=== PATIENT | male | born 1960 | race Caucasian/White ===

== ENCOUNTER 2017-11-12 06:02 | Emergency (ER) | payer SELFPAY ==
[2017-11-12] MEDS ORDERED: methylPREDNISolone Sodium Succinate 125 MG/2 ML SDV IVPUSH ONE (06:08)
[2017-11-12] MEDS ORDERED: Albuterol/Ipratropium 3.0-0.5 MG/3 ML Neb Soln NEB ONE (06:08)
[2017-11-12 06:12] VITALS: BP 134/85
--- NOTE | 2017-11-12 06:14 | EDM.PDOC ---
ED HPI GENERAL MEDICAL PROBLEM - General Chief Complaint: Respiratory Problem Stated Complaint: DIFFICULTY BREATHING [id number] Time Seen by Provider: 11/12/17 06:09 Source of Information: Reports: Patient History Limitations: Reports: No Limitations - History of Present Illness INITIAL COMMENTS - FREE TEXT/NARRATIVE: gives 2 months h/o cough, use neb at home prn only, not seen PMD and not getting better and tonight feels worse and neb not helping. chest hurts on coughing especially in back - Related Data Allergies Allergy/AdvReac Type Severity Reaction Status Date / Time No Known Allergies Allergy Verified 12/20/15 20:01 Home Meds: Home Meds Simvastatin 40 mg PO BEDTIME 08/25/14 [History] glyBURIDE [Glyburide] 10 mg PO BID 08/25/14 [History] metFORMIN [Glucophage] 1,000 mg PO BID 08/25/14 [History] Albuterol Sulfate [Albuterol Sulfate HFA] 2 puff INH ASDIRECTED PRN 12/23/14 [ History] Aspirin [[place] Aspirin] 81 mg PO DAILY 12/23/14 [History] Ibuprofen [Motrin] 600 mg PO Q6H PRN 09/19/15 [History] Ipratropium/Albuterol Sulfate [Iprat-Albut 0.5-3(2.5) MG/3 ML] 1 vial INH QID PRN 09/19/15 [History] Acetaminophen [Tylenol Extra Strength] 500 mg PO Q6HR PRN 10/17/15 [History] Past Medical History HEENT History: Reports: Cataract Cardiovascular History: Reports: High Cholesterol, SOB on Exertion, Other (See Below) Respiratory History: Reports: COPD, SOB Gastrointestinal History: Reports: Other (See Below) Musculoskeletal History: Reports: Arthritis, Osteoarthritis Neurological History: Reports: Neuropathy, Peripheral Endocrine/Metabolic History: Reports: Diabetes, Type II - Infectious Disease History Infectious Disease History: Reports: Chicken Pox, Measles - Past Surgical History HEENT Surgical History: Reports: Cataract Surgery, Oral Surgery Musculoskeletal Surgical History: Reports: Arthroscopic Knee Social & Family History - Family History Other Respiratory Family Hisory: father from lung cancer Endocrine/Metabolic: Reports: Diabetes, type II Other Endocrine/Metabolic Family History: mother has DM and possibley hypercholesterolemia - Tobacco Use Smoking Status *Q: Current Every Day Smoker Years of Tobacco use: 40 Packs/Tins Daily: 1 Used Tobacco, but Quit: No Month Tobacco Last Used: 12/2014 Second Hand Smoke Exposure: Yes - Alcohol Use Days Per Week of Alcohol Use: 2 Number of Drinks Per Day: 6 Total Drinks Per Week: 12 - Recreational Drug Use Recreational Drug Use: No - Living Situation & Occupation Living situation: Reports: ED ROS GENERAL - Review of Systems Review Of Systems: ROS reveals no pertinent complaints other than HPI. ED EXAM, GENERAL - Physical Exam Exam: See Below Exam Limited By: No Limitations General Appearance: Alert, WD/WN, Mild Distress, Moderate Distress, Other ( cough spasms) Ears: Hearing Grossly Normal Throat/Mouth: Normal Voice, No Airway Compromise Head: Atraumatic Neck: Non-Tender, Full Range of Motion Respiratory/Chest: Decreased Breath Sounds, Rales, Rhonchi, Wheezing, Accessory Muscle Use. No: Retractions Cardiovascular: Regular Rate, Rhythm GI/Abdominal: Soft, Non-Tender Extremities: No Pedal Edema Neurological: Alert, Oriented, Normal Cognition, No Motor/Sensory Deficits Psychiatric: No: Depressed Mood Skin Exam: Warm, Dry Lymphatic: No Adenopathy Course - Vital Signs Last Recorded V/S: Last Vital Signs Temp 37.9 C 11/12/17 06:04 Pulse 118 H 11/12/17 06:04 Resp 19 11/12/17 06:04 BP 134/85 11/12/17 06:04 Pulse Ox 92 L 11/12/17 06:04 - Orders/Labs/Meds Orders: Active Orders 24 hr Category Date Time Status RT Aerosol Therapy [RC] ASDIRECTED Care 11/12/17 06:08 Active CULTURE BLOOD [BC] Stat Lab 11/12/17 06:11 Ordered LACTIC ACID [CHEM] Stat Lab 11/12/17 06:11 Ordered Labs: Laboratory Tests 11/12/17 11/12/17 Range/Units 06:10 06:10 WBC 10.4 H (5.0-10.0) 10^3/uL RBC 5.18 (4.6-6.2) 10^6/uL Hgb 15.3 (14.0-18.0) g/dL Hct 45.7 (40.0-54.0) % MCV 88.2 (80-100) fL MCH 29.5 (27.0-34.0) pg MCHC 33.5 (33.0-35.0) g/dL Plt Count 298 D (150-450) 10^3/uL Neut % (Auto) 71.6 (42.2-75.2) % Lymph % (Auto) 12.8 L (20.5-50.1) % [place] % (Auto) 12.2 H (2-8) % Eos % (Auto) 3.0 (1.0-3.0) % Baso % (Auto) 0.4 (0.0-1.0) % Sodium 134 L (135-145) mmol/L Potassium 4.2 (3.6-5.0) mmol/L Chloride 100 L (101-111) mmol/L Carbon Dioxide 23.0 (21.0-31.0) mmol/L Anion Gap 15.2 BUN 16 (7-18) mg/dL Creatinine 0.9 (0.6-1.3) mg/dL Est Cr Clr Drug Dosing 83.65 mL/min Estimated GFR (MDRD) > 60 BUN/Creatinine Ratio 17.77 Glucose 133 H (74-105) mg/dL Calcium 8.9 (8.4-10.2) mg/dl Total Bilirubin 0.8 (0.2-1.0) mg/dL AST 22 (10-42) IU/L ALT 23 (10-60) IU/L Alkaline Phosphatase 76 (42-121) IU/L Troponin I < 0.02 (0.00-0.02) ng/ml Total Protein 7.5 (6.7-8.2) g/dl Albumin 4.3 (3.2-5.5) g/dl Globulin 3.2 Albumin/Globulin Ratio 1.34 Meds: Medications Discontinued Medications Generic Name Dose Route Start Last Admin Trade Name Freq PRN Reason Stop Dose Admin Albuterol/Ipratropium 3 ml 11/12/17 06:08 11/12/17 06:14 Duoneb 3.0-0.5 Mg/3 Ml NEB 11/12/17 06:09 3 ml ONETIME ONE Administration Ceftriaxone Sodium 1 gm 11/12/17 06:41 11/12/17 06:47 Rocephin IVPUSH 11/12/17 06:42 1 gm ONETIME ONE Administration Methylprednisolone Sodium Succinate 125 mg 11/12/17 06:08 11/12/17 06:15 Solu-Medrol IVPUSH 11/12/17 06:09 125 mg ONETIME ONE Administration Promethazine HCl/Codeine 5 ml 11/12/17 06:51 11/12/17 06:54 Phenergan With Codeine PO 11/12/17 06:52 5 ml ONETIME ONE Administration - Re-Assessments/Exams Free Text/Narrative Re-Assessment/Exam: 11/12/17 06:45 results discussed with pt 11/12/17 06:58 re-exam; s/p duoneb + IV Rx = much better Departure - Departure Time of Disposition: 06:59 Disposition: Home, Self-Care 01 Condition: Good Clinical Impression: Acute exacerbation of chronic obstructive pulmonary disease (COPD) Pneumonia Qualifiers: Pneumonia type: due to unspecified organism Laterality: right Lung location: middle lobe of lung Qualified Code(s): J18.1 - Lobar pneumonia, unspecified organism - Discharge Information Instructions: Chronic Obstructive Pulmonary Disease Exacerbation, [id number] Forms: ED Department Discharge Additional Instructions: 1) rest 2) take neb 3 times daily for cough 3) follow up with clinic or recheck as needed rx given; z-elie medrol dospak tessalon pearle 100mg bid orn x 12 albuterol 2.5mg solutoin tid orn - My Orders Last 24 Hours: My Active Orders 11/12/17 06:08 RT Aerosol Therapy [RC] ASDIRECTED 11/12/17 06:11 CULTURE BLOOD [BC] Stat LACTIC ACID [CHEM] Stat - Assessment/Plan Last 24 Hours: My Active Orders 11/12/17 06:08 RT Aerosol Therapy [RC] ASDIRECTED 11/12/17 06:11 CULTURE BLOOD [BC] Stat LACTIC ACID [CHEM] Stat
[2017-11-12 06:40] LABS: ANION GAP 15.2; CHLORIDE,CL 100 mmol/L (101-111); SODIUM,NA 134 mmol/L (135-145)
[2017-11-12] MEDS ORDERED: cefTRIAXone 1 GM Vial IVPUSH ONE (06:41)
[2017-11-12] MEDS ORDERED: Codeine/Promethazine 10-6.25 MG/5 ML Syrup 5 ML UD Cup PO ONE (06:51)
== END 2017-11-12 07:04 | disposition home or self-care (01) ==
LOC: DL.ED 06:02
DX: J18.9 Pneumonia, unspecified organism (principal); J44.1 Chronic obstructive pulmonary disease with (acute) exacerbation; E78.00 Pure hypercholesterolemia, unspecified; E11.9 Type 2 diabetes mellitus without complications; F17.210 Nicotine dependence, cigarettes, uncomplicated; Z79.84 Long term (current) use of oral hypoglycemic drugs; Z79.82 Long term (current) use of aspirin; Z79.899 Other long term (current) drug therapy
CPT/HCPCS: 36415; 71046; 80053; 83605; 84484; 85025; 87040; 94640; 96374; 96375; 99284; 99285; A9270; J0696; J2930

== ENCOUNTER 2017-12-18 09:50 | Emergency (ER) | payer SELFPAY ==
[2017-12-18 10:06] VITALS: BP 145/81
[2017-12-18] MEDS: Albuterol/Ipratropium 3.0-0.5 MG/3 ML Neb Soln NEB ONE (10:54)
--- NOTE | 2017-12-18 11:21 | EDM.PDOC ---
ED HPI GENERAL MEDICAL PROBLEM - General Chief Complaint: Respiratory Problem Stated Complaint: SOB Time Seen by Provider: 12/18/17 10:25 Source of Information: Reports: Patient History Limitations: Reports: No Limitations - History of Present Illness INITIAL COMMENTS - FREE TEXT/NARRATIVE: This 57 yo male patient reports to the ED with increased shortness of breath. The patient reports his initial symptoms started about 5 weeks ago after he quit smoking and had pneumonia. The patient reports that he attempted to do a nebulizer treatment while at home, but did not feel like it helped. The patient reports that he has noticed difficulties breathing yesterday, but it has gotten worse today. Onset Date: 12/17/17 Duration: Constant, Getting Worse Location: Reports: Chest Quality: Reports: Pressure Severity: Moderate Improves with: Reports: Rest Worsens with: Reports: Movement Associated Symptoms: Reports: cough w sputum, Shortness of Breath - Related Data Allergies Allergy/AdvReac Type Severity Reaction Status Date / Time No Known Allergies Allergy Verified 12/20/15 20:01 Home Meds: Home Meds Simvastatin 20 mg PO BEDTIME 08/25/14 [History] glyBURIDE [Glyburide] 5 mg PO BID 08/25/14 [History] metFORMIN [Glucophage] 1,000 mg PO BID 08/25/14 [History] Albuterol Sulfate [Albuterol Sulfate HFA] 2 puff INH ASDIRECTED PRN 12/23/14 [ History] Aspirin [[place] Aspirin] 81 mg PO DAILY 12/23/14 [History] Ibuprofen [Motrin] 600 mg PO Q6H PRN 09/19/15 [History] Ipratropium/Albuterol Sulfate [Iprat-Albut 0.5-3(2.5) MG/3 ML] 1 vial INH QID PRN 09/19/15 [History] Acetaminophen [Tylenol Extra Strength] 500 mg PO Q6HR PRN 10/17/15 [History] Past Medical History HEENT History: Reports: Cataract, Impaired Vision Cardiovascular History: Reports: High Cholesterol, SOB on Exertion Respiratory History: Reports: COPD, SOB Gastrointestinal History: Reports: Other (See Below) Musculoskeletal History: Reports: Arthritis, Osteoarthritis Neurological History: Reports: Neuropathy, Peripheral Endocrine/Metabolic History: Reports: Diabetes, Type II - Infectious Disease History Infectious Disease History: Reports: Chicken Pox, Measles - Past Surgical History HEENT Surgical History: Reports: Cataract Surgery, Oral Surgery Musculoskeletal Surgical History: Reports: Arthroscopic Knee Social & Family History - Family History Other Respiratory Family Hisory: father from lung cancer Endocrine/Metabolic: Reports: Diabetes, type II Other Endocrine/Metabolic Family History: mother has DM and possibley hypercholesterolemia - Tobacco Use Smoking Status *Q: Current Every Day Smoker Years of Tobacco use: 45 Packs/Tins Daily: 1.5 Used Tobacco, but Quit: Yes Month Tobacco Last Used: 11/2017 Second Hand Smoke Exposure: Yes - Caffeine Use Caffeine Use: Reports: Coffee - Alcohol Use Days Per Week of Alcohol Use: 2 Number of Drinks Per Day: 6 Total Drinks Per Week: 12 - Recreational Drug Use Recreational Drug Use: No - Living Situation & Occupation Living situation: Reports: ED ROS GENERAL - Review of Systems Review Of Systems: ROS reveals no pertinent complaints other than HPI. ED EXAM, GENERAL - Physical Exam Exam: See Below Exam Limited By: No Limitations General Appearance: Alert, WD/WN, Moderate Distress Eye Exam: Bilateral Eye: EOMI, Normal Inspection, PERRL Ears: Normal External Exam, Normal Canal, Hearing Grossly Normal, Normal TMs Nose: Normal Inspection, Normal Mucosa, No Blood Throat/Mouth: Normal Lips, Normal Teeth, Normal Gums, Normal Voice, No Airway Compromise, Other (erythema of posterior pharynx) Head: Atraumatic, Normocephalic Neck: Normal Inspection, Supple, Non-Tender, Full Range of Motion Respiratory/Chest: Decreased Breath Sounds, Rhonchi (diffuse lower lobes), Wheezing (throughout) Cardiovascular: Normal Peripheral Pulses, Regular Rate, Rhythm, No Edema, No Gallop, No JVD, No Murmur, No Rub GI/Abdominal: Normal Bowel Sounds, Soft, Non-Tender, No Organomegaly, No Distention, No Abnormal Bruit, No Mass (Male) Exam: Deferred Rectal (Males) Exam: Deferred Back Exam: Normal Inspection, Full Range of Motion, NT Extremities: Normal Inspection, Normal Range of Motion, Non-Tender, Normal Capillary Refill, No Pedal Edema Psychiatric: Normal Affect, Normal Mood Skin Exam: Warm, Dry, Intact, Normal Color, No Rash Lymphatic: No Adenopathy Course - Vital Signs Last Recorded V/S: Last Vital Signs Temp 37.4 C 12/18/17 10:05 Pulse 110 H 12/18/17 10:05 Resp 16 12/18/17 10:05 BP 145/81 H 12/18/17 10:05 Pulse Ox 94 L 12/18/17 10:05 - Orders/Labs/Meds Orders: Active Orders 24 hr Category Date Time Status RT Aerosol Therapy [RC] ASDIRECTED Care 12/18/17 10:45 Active Chest 2V [CR] Urgent Exams 12/18/17 10:46 Taken CULTURE BLOOD [BC] Stat Lab 12/18/17 10:56 Received CULTURE BLOOD [BC] Stat Lab 12/18/17 11:02 Received LACTIC ACID [CHEM] Stat Lab 12/18/17 10:56 Received Blood Culture x2 Reflex Set [OM.PC] Stat Oth 12/18/17 10:46 Ordered Labs: Laboratory Tests 12/18/17 12/18/17 Range/Units 10:56 10:56 WBC 11.7 H (5.0-10.0) 10^3/uL RBC 4.69 (4.6-6.2) 10^6/uL Hgb 13.9 L (14.0-18.0) g/dL Hct 41.6 (40.0-54.0) % MCV 88.7 (80-100) fL MCH 29.6 (27.0-34.0) pg MCHC 33.4 (33.0-35.0) g/dL Plt Count 277 (150-450) 10^3/uL Neut % (Auto) 56.0 (42.2-75.2) % Lymph % (Auto) 22.6 (20.5-50.1) % [place] % (Auto) 8.1 H (2-8) % Eos % (Auto) 12.8 H (1.0-3.0) % Baso % (Auto) 0.5 (0.0-1.0) % Add Manual Diff Yes Neutrophils % (Manual) 63 (42-75) % Lymphocytes % (Manual) 25 (20-50) % Monocytes % (Manual) 4 (2-8) % Eosinophils % (Manual) 8 H (1-3) % Sodium 136 (135-145) mmol/L Potassium 4.0 (3.6-5.0) mmol/L Chloride 102 (101-111) mmol/L Carbon Dioxide 26.0 (21.0-31.0) mmol/L Anion Gap 12.0 BUN 14 (7-18) mg/dL Creatinine 0.8 (0.6-1.3) mg/dL Est Cr Clr Drug Dosing 90.83 mL/min Estimated GFR (MDRD) > 60 BUN/Creatinine Ratio 17.50 Glucose 214 H (74-105) mg/dL Calcium 9.0 (8.4-10.2) mg/dl Total Bilirubin 0.5 (0.2-1.0) mg/dL AST 26 (10-42) IU/L ALT 27 (10-60) IU/L Alkaline Phosphatase 60 (42-121) IU/L Total Protein 6.7 (6.7-8.2) g/dl Albumin 3.9 (3.2-5.5) g/dl Globulin 2.8 Albumin/Globulin Ratio 1.39 Meds: Medications Discontinued Medications Generic Name Dose Route Start Last Admin Trade Name Freq PRN Reason Stop Dose Admin Albuterol/Ipratropium 3 ml 12/18/17 10:45 12/18/17 10:54 Duoneb 3.0-0.5 Mg/3 Ml NEB 12/18/17 10:46 3 ml ONETIME ONE Administration Methylprednisolone Sodium Succinate 125 mg 12/18/17 10:47 12/18/17 11:25 Solu-Medrol IVPUSH 12/18/17 10:48 125 mg ONETIME ONE Administration Departure - Departure Time of Disposition: 11:51 Disposition: Home, Self-Care 01 Condition: Fair Clinical Impression: Acute exacerbation of chronic obstructive pulmonary disease (COPD) - Discharge Information Instructions: Chronic Obstructive Pulmonary Disease Exacerbation, [id number] Forms: ED Department Discharge Care Plan Goals: The patient and his were advised of the examination, lab and x-ray results during the visit. The patient was given a Duoneb treatment and IV Solumedrol while in the ED. The patient was discharged with a script for Augmentin (875/125 ) to take 1 by mouth 2 times per day for 10 days and a Medrol Dose Pack to take as directed. If the patient has any additional symptoms or concerns, the patient should follow-up with his primary care facility or return to the emergency department. - My Orders Last 24 Hours: My Active Orders 12/18/17 10:45 RT Aerosol Therapy [RC] ASDIRECTED 12/18/17 10:46 Chest 2V [CR] Urgent Blood Culture x2 Reflex Set [OM.PC] Stat 12/18/17 10:56 CULTURE BLOOD [BC] Stat LACTIC ACID [CHEM] Stat 12/18/17 11:02 CULTURE BLOOD [BC] Stat - Assessment/Plan Last 24 Hours: My Active Orders 12/18/17 10:45 RT Aerosol Therapy [RC] ASDIRECTED 12/18/17 10:46 Chest 2V [CR] Urgent Blood Culture x2 Reflex Set [OM.PC] Stat 12/18/17 10:56 CULTURE BLOOD [BC] Stat LACTIC ACID [CHEM] Stat 12/18/17 11:02 CULTURE BLOOD [BC] Stat
[2017-12-18] MEDS: methylPREDNISolone Sodium Succinate 125 MG/2 ML SDV IVPUSH ONE (11:25)
[2017-12-18 11:28] LABS: CHLORIDE,CL 102 mmol/L (101-111); SODIUM,NA 136 mmol/L (135-145)
== END 2017-12-18 12:00 | disposition home or self-care (01) ==
LOC: DL.ED 09:50
DX: J44.1 Chronic obstructive pulmonary disease with (acute) exacerbation (principal); E11.9 Type 2 diabetes mellitus without complications; E78.00 Pure hypercholesterolemia, unspecified; F17.210 Nicotine dependence, cigarettes, uncomplicated; Z79.899 Other long term (current) drug therapy; Z79.82 Long term (current) use of aspirin
CPT/HCPCS: 36415; 71046; 80053; 83605; 85025; 87040; 94640; 96374; 99285; J2930

== ENCOUNTER 2018-01-16 22:03 | Inpatient (IN) | payer OTHER ==
[2018-01-16] MEDS ORDERED: Albuterol/Ipratropium 3.0-0.5 MG/3 ML Neb Soln NEB ONE (22:10)
[2018-01-16] MEDS ORDERED: methylPREDNISolone Sodium Succinate 125 MG/2 ML SDV IVPUSH ONE (22:49)
--- NOTE | 2018-01-16 22:52 | EDM.PDOC ---
ED HPI GENERAL MEDICAL PROBLEM - General Chief Complaint: Respiratory Problem Stated Complaint: [id number] CANT BREATH WELL Time Seen by Provider: 01/16/18 22:50 Source of Information: Reports: Patient, Family History Limitations: Reports: No Limitations - History of Present Illness INITIAL COMMENTS - FREE TEXT/NARRATIVE: 3 days h/o wheezing nebs not helping much worse tonight. - Related Data Allergies Allergy/AdvReac Type Severity Reaction Status Date / Time No Known Allergies Allergy Verified 01/16/18 22:08 Home Meds: Home Meds Simvastatin 20 mg PO BEDTIME 08/25/14 [History] glyBURIDE [Glyburide] 5 mg PO BID 08/25/14 [History] metFORMIN [Glucophage] 1,000 mg PO BID 08/25/14 [History] Albuterol Sulfate [Albuterol Sulfate HFA] 2 puff INH ASDIRECTED PRN 12/23/14 [ History] Aspirin [[place] Aspirin] 81 mg PO DAILY 12/23/14 [History] Ibuprofen [Motrin] 600 mg PO Q6H PRN 09/19/15 [History] Ipratropium/Albuterol Sulfate [Iprat-Albut 0.5-3(2.5) MG/3 ML] 1 vial INH QID PRN 09/19/15 [History] Acetaminophen [Tylenol Extra Strength] 500 mg PO Q6HR PRN 10/17/15 [History] Past Medical History HEENT History: Reports: Cataract, Impaired Vision Cardiovascular History: Reports: High Cholesterol, SOB on Exertion Respiratory History: Reports: COPD, SOB Gastrointestinal History: Reports: Other (See Below) Musculoskeletal History: Reports: Arthritis, Osteoarthritis Neurological History: Reports: Neuropathy, Peripheral Psychiatric History: Reports: None Endocrine/Metabolic History: Reports: Diabetes, Type II Hematologic History: Reports: None Immunologic History: Reports: None Oncologic (Cancer) History: Reports: None - Infectious Disease History Infectious Disease History: Reports: Chicken Pox, Measles - Past Surgical History HEENT Surgical History: Reports: Cataract Surgery, Oral Surgery Musculoskeletal Surgical History: Reports: Arthroscopic Knee Social & Family History - Family History Other Respiratory Family Hisory: father from lung cancer Endocrine/Metabolic: Reports: Diabetes, type II Other Endocrine/Metabolic Family History: mother has DM and possibley hypercholesterolemia - Tobacco Use Smoking Status *Q: Former Smoker Years of Tobacco use: 45 Packs/Tins Daily: 1.5 Used Tobacco, but Quit: Yes Month/Year Tobacco Last Used: october 2017 Second Hand Smoke Exposure: Yes - Caffeine Use Caffeine Use: Reports: Coffee - Alcohol Use Days Per Week of Alcohol Use: 2 Number of Drinks Per Day: 6 Total Drinks Per Week: 12 - Recreational Drug Use Recreational Drug Use: No - Living Situation & Occupation Living situation: Reports: ED ROS GENERAL - Review of Systems Review Of Systems: ROS reveals no pertinent complaints other than HPI. ED EXAM, GENERAL - Physical Exam Exam: See Below Exam Limited By: No Limitations General Appearance: Alert, WD/WN, Mild Distress, Moderate Distress, Other ( wheezing) Ears: Hearing Grossly Normal Throat/Mouth: Normal Voice, No Airway Compromise Head: Atraumatic Neck: Non-Tender, Full Range of Motion Respiratory/Chest: No Accessory Muscle Use, Decreased Breath Sounds, Rhonchi, Wheezing Cardiovascular: Regular Rate, Rhythm GI/Abdominal: Soft, Non-Tender Neurological: Alert, Oriented, Normal Cognition, Normal Gait, No Motor/Sensory Deficits Psychiatric: Flat Affect Skin Exam: Warm, Dry, Normal Color Lymphatic: No Adenopathy Course - Vital Signs Last Recorded V/S: Last Vital Signs Temp 36.9 C 01/16/18 22:09 Pulse 108 H 01/16/18 22:09 Resp 22 H 01/16/18 22:09 BP 137/84 01/16/18 22:09 Pulse Ox 90 L 01/16/18 22:09 - Orders/Labs/Meds Orders: Active Orders 24 hr Category Date Time Status RT Aerosol Therapy [RC] ASDIRECTED Care 01/16/18 22:10 Active Sodium Chloride 0.9% [Normal Saline] 1,000 ml Med 01/16/18 23:00 Active IV ASDIRECTED Medication Orders Sodium Chloride (Normal Saline) 1,000 mls @ 500 mls/hr IV ASDIRECTED HAN Last Admin: 01/16/18 23:03 Dose: 500 mls/hr Labs: Laboratory Tests 01/16/18 01/16/18 01/16/18 Range/Units 22:55 22:55 22:55 WBC 11.0 H (5.0-10.0) 10^3/uL RBC 4.58 L (4.6-6.2) 10^6/uL Hgb 13.8 L (14.0-18.0) g/dL Hct 40.5 (40.0-54.0) % MCV 88.4 (80-100) fL MCH 30.1 (27.0-34.0) pg MCHC 34.1 (33.0-35.0) g/dL Plt Count 321 (150-450) 10^3/uL Neut % (Auto) 44.8 (42.2-75.2) % Lymph % (Auto) 29.4 (20.5-50.1) % [place] % (Auto) 9.3 H (2-8) % Eos % (Auto) 16.0 H (1.0-3.0) % Baso % (Auto) 0.5 (0.0-1.0) % Sodium 136 (135-145) mmol/L Potassium 3.7 (3.6-5.0) mmol/L Chloride 100 L (101-111) mmol/L Carbon Dioxide 28.0 (21.0-31.0) mmol/L Anion Gap 11.7 BUN 12 (7-18) mg/dL Creatinine 0.9 (0.6-1.3) mg/dL Est Cr Clr Drug Dosing 82.19 mL/min Estimated GFR (MDRD) > 60 BUN/Creatinine Ratio 13.33 Glucose 208 H (74-105) mg/dL Lactic Acid 1.6 (0.5-2.2) mmol/L Calcium 9.0 (8.4-10.2) mg/dl Total Bilirubin 0.8 (0.2-1.0) mg/dL AST 25 (10-42) IU/L ALT 20 (10-60) IU/L Alkaline Phosphatase 71 (42-121) IU/L Total Protein 6.9 (6.7-8.2) g/dl Albumin 4.0 (3.2-5.5) g/dl Globulin 2.9 Albumin/Globulin Ratio 1.38 Meds: Medications Generic Name Dose Route Start Last Admin Trade Name Freq PRN Reason Stop Dose Admin Sodium Chloride 1,000 mls @ 500 mls/hr 01/16/18 23:00 01/16/18 23:03 Normal Saline IV 500 mls/hr ASDIRECTED HAN Administration Discontinued Medications Generic Name Dose Route Start Last Admin Trade Name Freq PRN Reason Stop Dose Admin Albuterol/Ipratropium 3 ml 01/16/18 22:10 01/16/18 22:14 Duoneb 3.0-0.5 Mg/3 Ml NEB 01/16/18 22:11 3 ml ONETIME ONE Administration Methylprednisolone Sodium Succinate 125 mg 01/16/18 22:49 01/16/18 23:01 Solu-Medrol IVPUSH 01/16/18 22:50 125 mg ONETIME ONE Administration - Re-Assessments/Exams Free Text/Narrative Re-Assessment/Exam: 01/16/18 23:[address] Alvarez who kindly admitted pt. Departure - Departure Time of Disposition: 23:32 Disposition: Admitted As Inpatient 65 Condition: Fair Clinical Impression: COPD, Moderate chronic obstructive pulmonary disease - Discharge Information Forms: ED Department Discharge - My Orders Last 24 Hours: My Active Orders 01/16/18 22:10 RT Aerosol Therapy [RC] ASDIRECTED 01/16/18 23:00 Sodium Chloride 0.9% [Normal Saline] 1,000 ml IV ASDIRECTED - Assessment/Plan Last 24 Hours: My Active Orders 01/16/18 22:10 RT Aerosol Therapy [RC] ASDIRECTED 01/16/18 23:00 Sodium Chloride 0.9% [Normal Saline] 1,000 ml IV ASDIRECTED
[2018-01-16] MEDS ORDERED: Sodium Chloride 0.9% 1,000 ML IV SCH (23:00)
[2018-01-16 23:23] LABS: CHLORIDE,CL 100 mmol/L (101-111); SODIUM,NA 136 mmol/L (135-145)
[2018-01-17] MEDS ORDERED: Levofloxacin/Dextrose 5%-Water 750 MG in Premix Bag 1 BAG IV ONE (01:00)
[2018-01-17] MEDS ORDERED: Acetaminophen 325 MG Tab PO PRN (01:05)
[2018-01-17] MEDS ORDERED: Ondansetron 4 MG Tab.DIS PO PRN (01:05)
[2018-01-17] MEDS ORDERED: Magnesium Hydroxide 400 MG/5 ML Susp 30 ML Cup PO PRN (01:05)
[2018-01-17] MEDS ORDERED: Albuterol 6.7 GM Inhaler INH PRN (01:09)
[2018-01-17] MEDS ORDERED: 50% Dextrose in Water 50 ML Syringe IVPUSH PRN (01:10)
[2018-01-17] MEDS ORDERED: methylPREDNISolone Sodium Succinate 40 MG/1 ML SDV IVPUSH SCH ×2 (01:15→07:00)
[2018-01-17] MEDS: Albuterol/Ipratropium 3.0-0.5 MG/3 ML Neb Soln NEB SCH ×6 (03:32→23:30)
--- NOTE | 2018-01-17 04:15 | HP ---
DATE OF SERVICE: 01/17/2018 CHIEF COMPLAINT: Increasing shortness of breath. HISTORY OF PRESENTING ILLNESS: Mr. Luis F Ordoñez is a 57-year-old male with medical history significant for type 2 diabetes mellitus, hyperlipidemia, chronic obstructive pulmonary disease, chronic tobacco use, presented to the ER with complaints of increasing shortness of breath and is noted to be in COPD exacerbation requiring admission to the hospital. The patient says that he has been sick for the last 4-5 days, which has been progressively getting worse. He complains of increasing shortness of breath. He grades the shortness of breath as 6/10 in intensity, which gets aggravated on ambulation, relieved with rest. Not associated with any chest pain. Denies any fevers or chills for the last few days, but complains of having cough with sputum which was brownish to grayish in color. Denied any chest pain. No complaints of abdominal pain, but complains of having diarrhea in the last 2 days, 3 loose stools each day. No blood seen in the diarrhea. The patient earlier this month had similar episodes of bronchitis requiring Augmentin and Medrol Dosepak at that time. The patient denied any history of chest pains on exertion, but has mild dyspnea on exertion. No history of orthopnea or paroxysmal nocturnal dyspnea. The patient denied any history of hematemesis, hematochezia, or melenic stools. Normal bowel and bladder habits otherwise. REVIEW OF SYSTEMS: A complete review of system including skin, ear, nose, and throat, cardiovascular system, gastrointestinal system, genitourinary system, hematology, oncology, neurology, allergy, immunology, constitutional were all evaluated and were negative except for the above-said notes. PAST MEDICAL HISTORY: Significant for: 1. Type 2 diabetes mellitus. 2. Hyperlipidemia. 3. Chronic obstructive pulmonary disease. 4. Chronic tobacco use. 5. History of alcohol use. PAST SURGICAL HISTORY: Significant for knee arthroscopies in the past. FAMILY HISTORY: Significant for lung cancer in his father. Diabetes in his mother. ALLERGIES: No known drug allergies. SOCIAL HISTORY: The patient has longstanding history of tobacco use. He quit smoking 9 weeks back. History of occasional alcohol intake. HOME MEDICATIONS: Include: 1. Simvastatin 20 mg daily. 2. Cymbalta 30 mg daily. 3. Metformin 1000 mg daily. 4. Glyburide 5 mg daily. 5. ProAir inhalation. 6. Pulmicort nebulizer 2 times daily. 7. DuoNeb as needed. 8. Advil 600 mg oral q.6 hours as needed for pain. PHYSICAL EXAMINATION: Vital Signs: Temperature of 97.8, pulse of 97, blood pressure 153/80, respiratory rate of 20, saturating at 93% on 1 L of oxygen. General Appearance: The patient is well oriented to time, place, and person. Follows commands spontaneously, in mild respiratory distress. Cardiovascular System: S1 and S2 heard with normal intensity. No gallops. Respiratory System: Bilateral wheeze noted. Mild respiratory distress. Abdomen: Soft. Bowel sounds positive. Nontender. No rigidity. No guarding. No rebound tenderness. Extremities: No edema in bilateral lower extremities. Neurology: No gross focal neurological deficit. LABORATORY DATA: WBC 11, hemoglobin 13.8, hematocrit 40.5, platelet count 321. Sodium 136, potassium 3.7, chloride 100, bicarb 28, BUN 12, creatinine 0.9, glucose 208. Chest x-ray shows no acute infiltrates. Chronic changes noted on the chest x- ray. ASSESSMENT: 1. Acute chronic obstructive pulmonary disease exacerbation. 2. Acute hypoxic respiratory failure. 3. Possible acute bronchitis. 4. Type 2 diabetes mellitus. 5. Hyperlipidemia. 6. Chronic history of tobacco use. PLAN: 1. Acute chronic obstructive pulmonary disease exacerbation. The patient presents with increasing shortness of breath. Noted to have bilateral wheeze. We will start him on IV methylprednisolone, IV antibiotic with Levaquin, and have him on nebulizer treatment with DuoNeb and Pulmicort nebulizer and closely follow. 2. Acute hypoxic respiratory failure. The patient is requiring around 1 to 2 L of nasal cannula oxygen. We will continue the same. We will try to maintain saturations around 95%. 3. Hypertension. The patient is noted to have elevated blood pressure, but the patient denied any history of hypertension, not on any antihypertensive medications. We will closely follow. 4. Type 2 diabetes mellitus. The patient is noted to be on metformin and glyburide. We will hold the metformin while in the hospital. Continue the glyburide and have him on supplemental scale insulin as needed for additional coverage of his blood glucose. As he is going to receive steroids, his diabetes could get uncontrolled in the hospital. 5. Tobacco use. The patient claims that he has quit smoking 9 weeks back for which he is congratulated and advised him to quit smoking. 6. Deep vein thrombosis prophylaxis. We will have him on Lovenox for deep vein thrombosis prophylaxis. 7. Code status. The patient wants to be full code. 8. Discussed with the patient regarding the plan of care. Discussed with Dr. Gmoez, ER physician regarding the plan of care. Reviewed the labs and medications. Reviewed the old chart. [facility] /[id number]
[2018-01-17 07:20] LABS: CHLORIDE,CL 101 mmol/L (101-111); SODIUM,NA 134 mmol/L (135-145)
[2018-01-17] MEDS: glyBURIDE 5 MG Tab PO SCH ×2 (08:03→21:43)
[2018-01-17] MEDS: Aspirin 81 MG Tab.EC PO SCH (08:03)
[2018-01-17] MEDS: Budesonide 0.5 MG/2 ML Neb Susp NEB SCH ×2 (08:03→18:35)
[2018-01-17] MEDS: DULoxetine 30 MG Cap PO SCH (08:03)
[2018-01-17] MEDS: methylPREDNISolone Sodium Succinate 40 MG/1 ML SDV IVPUSH SCH ×3 (08:12→23:31)
[2018-01-17] MEDS: Insulin Aspart 100 Units/ML 3 ML Pen SUBCUT SCH ×5 (08:18→21:45)
[2018-01-17] MEDS ORDERED: Enoxaparin 30 MG/0.3 ML Syringe SUBCUT SCH (09:00)
[2018-01-17] MEDS: Pantoprazole 40 MG Tab.CR PO SCH (12:48)
[2018-01-17] MEDS: Enoxaparin 40 MG/0.4 ML Syringe SUBCUT SCH (12:49)
[2018-01-17] MEDS: Simvastatin 40 MG Tab PO SCH (21:43)
[2018-01-18] MEDS: Albuterol/Ipratropium 3.0-0.5 MG/3 ML Neb Soln NEB SCH ×6 (03:09→23:38)
[2018-01-18] MEDS: Pantoprazole 40 MG Tab.CR PO SCH (06:18)
[2018-01-18] MEDS: Budesonide 0.5 MG/2 ML Neb Susp NEB SCH ×2 (07:19→18:42)
[2018-01-18] MEDS: glyBURIDE 5 MG Tab PO SCH ×2 (08:14→21:04)
[2018-01-18] MEDS: Aspirin 81 MG Tab.EC PO SCH (08:14)
[2018-01-18] MEDS: DULoxetine 30 MG Cap PO SCH (08:15)
[2018-01-18] MEDS: methylPREDNISolone Sodium Succinate 40 MG/1 ML SDV IVPUSH SCH ×3 (08:15→23:38)
[2018-01-18] MEDS: Sodium Chloride 0.9% 10 ML Syringe FLUSH PRN ×3 (08:16→16:09)
[2018-01-18] MEDS: Insulin Aspart 100 Units/ML 3 ML Pen SUBCUT SCH ×4 (08:20→21:11)
[2018-01-18] MEDS: Enoxaparin 40 MG/0.4 ML Syringe SUBCUT SCH (08:22)
[2018-01-18] MEDS ORDERED: Levofloxacin/Dextrose 5%-Water 750 MG in Premix Bag 1 BAG IV SCH (11:00)
[2018-01-18] MEDS: Levofloxacin/Dextrose 5%-Water 750 MG in Premix Bag 1 BAG IV SCH (11:28)
--- NOTE | 2018-01-18 12:26 | PN ---
DATE: 01/18/2018 SUBJECTIVE: Mr. Romero Kerns is a 57-year-old male with a medical history significant for hypertension, type 2 diabetes mellitus, hyperlipidemia, chronic obstructive pulmonary disease, and chronic tobacco use, admitted with acute COPD exacerbation, acute hypoxic respiratory failure, and possible bronchitis. For the last 24 hours, the patient is continued on nebulizer treatment and IV steroids. The patient denies any complaints of chest pain. No shortness of breath. No abdominal pain. No nausea. No vomiting. No diarrhea. REVIEW OF SYSTEMS: Cardiovascular, respiratory, gastrointestinal, constitutional were all evaluated. PHYSICAL EXAMINATION: Vital Signs: Temperature of 99.2, pulse of 103, blood pressure 110/62, respiratory rate of 20, and saturating at 98%. General Appearance: The patient is well oriented to time, place, and person. Follows commands spontaneously. Cardiovascular System: S1 and S2 heard with normal intensity. No gallops. Respiratory System: Bilateral wheeze noted. Abdomen: Soft. Bowel sounds positive. Nontender. No rigidity. Extremities: No edema in the bilateral lower extremities. MEDICATIONS: Reviewed. Continue with: 1. Tylenol 650 every 4 hours as needed for pain. 2. Albuterol inhalation as needed. 3. DuoNeb 3 mL nebulizer q.4 hours. 4. Aspirin 81 mg daily. 5. Pulmicort 0.5 mg twice a day. 6. Cymbalta 30 mg daily. 7. Lovenox 40 mg daily. 8. Glyburide 5 mg twice a day. 9. NovoLog supplemental scale. 10.Levaquin 750 mg daily. 11.Solu-Medrol 40 mg IV q.8 hourly. 12.Protonix 40 mg daily. 13.Zocor 20 mg at bedtime. LABORATORY DATA: Labs reviewed. The patient noted to have elevated blood sugar up to 269. ASSESSMENT: 1. Acute chronic obstructive pulmonary disease exacerbation. 2. Acute hypoxic respiratory failure, resolved. 3. Acute bronchitis. 4. Hypertension. 5. Hyperlipidemia. 6. Type 2 diabetes mellitus. PLAN: 1. Acute COPD exacerbation. The patient is currently on nebulizer treatment with DuoNeb and Pulmicort nebulizers. We will gradually taper down the steroids to 40 mg IV q.8 hourly. The patient will be continued on supplemental oxygen if needed. 2. Acute hypoxic respiratory failure, resolved. The patient is able to saturate well on room air. 3. Type 2 diabetes mellitus, uncontrolled. This is mainly from his steroid dosing. Continue with glyburide and have him on supplemental scale insulin as needed. The patient apparently on the steroid, so hopefully, this would help with the diabetes control. 4. DVT prophylaxis. Continue with Lovenox for DVT prophylaxis. 5. Tobacco use. The patient was educated about tobacco cessation on this admission. [facility] /[id number]
[2018-01-18] MEDS: Simvastatin 40 MG Tab PO SCH (21:04)
[2018-01-19] MEDS: Albuterol/Ipratropium 3.0-0.5 MG/3 ML Neb Soln NEB SCH ×3 (03:08→10:52)
[2018-01-19] MEDS: Pantoprazole 40 MG Tab.CR PO SCH (05:50)
[2018-01-19] MEDS: Budesonide 0.5 MG/2 ML Neb Susp NEB SCH (07:11)
[2018-01-19 07:40] VITALS: BP 121/71
[2018-01-19] MEDS: DULoxetine 30 MG Cap PO SCH (08:15)
[2018-01-19] MEDS: methylPREDNISolone Sodium Succinate 40 MG/1 ML SDV IVPUSH SCH (08:16)
[2018-01-19] MEDS: Aspirin 81 MG Tab.EC PO SCH (08:16)
[2018-01-19] MEDS: Enoxaparin 40 MG/0.4 ML Syringe SUBCUT SCH (08:16)
[2018-01-19] MEDS: glyBURIDE 5 MG Tab PO SCH (08:16)
[2018-01-19] MEDS: Insulin Aspart 100 Units/ML 3 ML Pen SUBCUT SCH ×2 (08:17→11:23)
[2018-01-19] MEDS: Sodium Chloride 0.9% 10 ML Syringe FLUSH PRN (08:19)
[2018-01-19] MEDS: Levofloxacin/Dextrose 5%-Water 750 MG in Premix Bag 1 BAG IV SCH (11:23)
[2018-01-19] MEDS ORDERED: Levofloxacin 500 MG Tab ONE (11:33)
[2018-01-19] MEDS ORDERED: Budesonide 0.5 MG/2 ML Neb Susp ONE (11:35)
[2018-01-19] MEDS ORDERED: Albuterol/Ipratropium 3.0-0.5 MG/3 ML Neb Soln ONE (11:36)
[2018-01-19] MEDS ORDERED: Albuterol/Ipratropium 3.0-0.5 MG/3 ML Neb Soln INH ONE (12:09)
[2018-01-19] MEDS ORDERED: Levofloxacin 500 MG Tab PO ONE (12:09)
[2018-01-19] MEDS ORDERED: Budesonide 0.5 MG/2 ML Neb Susp INH ONE (12:09)
--- NOTE | 2018-01-20 07:26 | DISCH ---
DATE OF SERVICE: 01/19/2018 ADMITTING DIAGNOSES: 1. Acute chronic obstructive pulmonary disease exacerbation. 2. Acute hypoxic respiratory failure. DISCHARGE DIAGNOSES: 1. Acute chronic obstructive pulmonary disease exacerbation, resolved. 2. Acute hypoxic respiratory failure, resolved. 3. Type 2 diabetes mellitus, uncontrolled from steroid use. HISTORY OF PRESENT ILLNESS: Mr. Luis F Ordoñez is a 57-year-old male with medical history significant for type 2 diabetes mellitus, hyperlipidemia, chronic obstructive pulmonary airway disease, chronic tobacco use admitted with COPD exacerbation with complaints of increasing shortness of breath. The patient was empirically started on IV antibiotic but no evidence of pneumonia identified at this time. The patient was started on IV methylprednisolone and nebulizer treatment. He responded well to the treatment. We were able to titrate down IV methylprednisolone and switch him to oral prednisone at the time of discharge. He will continue with oral Levaquin for next 3 days. The patient was explained about importance of nebulizer treatment. He will use DuoNeb 3 times a day and Pulmicort twice a day. He is advised to follow with Pulmonary Clinic for official pulmonary function test. He is educated about tobacco cessation, strongly encouraged him to quit smoking which he understands and verbalized the same. The patient claims that he had quit smoking for the last 9 weeks for which he was congratulated. He is advised to follow with his primary care physician next 1 week of time. The patient was explained about changes in his medications. PHYSICAL EXAMINATION: Vital Signs: On the day of discharge temperature of 98.2, pulse of 100, blood pressure 121/71, respiratory rate of 20, saturating at 94% on room air. General Appearance: The patient is well oriented to time, place, and person. Follows commands spontaneously. Cardiovascular System: S1, S2 heard with normal intensity. No gallops. Respiratory System: Clear to auscultation bilaterally. No wheeze. No crepitations. Abdomen: Soft. Bowel sounds positive. Nontender. No rigidity. Extremities: No edema in bilateral lower extremities. Neurology: No gross focal neurological deficits. DISCHARGE MEDICATIONS: Include: 1. Tylenol Extra Strength 500 mg every 6 hours as needed for pain and fever. 2. Albuterol 2 puffs inhalation every 6 hours as needed for shortness of breath. 3. DuoNeb 3 mL nebulizer 3 times daily. 4. Aspirin 81 mg daily. 5. Pulmicort 0.5 mg nebulizer twice daily. 6. Cymbalta 30 mg daily. 7. Ibuprofen 600 mg every 6 hours as needed for pain. 8. Levaquin 500 mg daily. 9. Prednisone tapered dose with 40 to 20 to 10 to 5 mg 3 days each. 10.Glyburide 5 mg twice a day. 11.Metformin 1000 mg twice a day. CONDITION ON ADMISSION: Poor. CONDITION ON DISCHARGE: Stable and good. ACTIVITY: As tolerated. DIET: Consistent carbohydrate diet. Follow with primary care physician next 1 week of time. Spent over 35 minutes of time in evaluating and treating this patient and making discharge plans. [facility] /[id number]
== END 2018-01-19 12:10 | disposition home or self-care (01) | DRG 190 ==
LOC: DL.ED 22:03 → UNDOADMIN 23:39 → DL.MS 23:39
PROVIDERS: ADMIT Internal Medicine; ATTEND Internal Medicine
DX: J44.1 Chronic obstructive pulmonary disease with (acute) exacerbation (principal); J96.01 Acute respiratory failure with hypoxia; J44.0 Chronic obstructive pulmonary disease with (acute) lower respiratory infection; J20.9 Acute bronchitis, unspecified; I10 Essential (primary) hypertension; E11.42 Type 2 diabetes mellitus with diabetic polyneuropathy; E11.65 Type 2 diabetes mellitus with hyperglycemia; T38.0X5A Adverse effect of glucocorticoids and synthetic analogues, initial encounter; H54.7 Unspecified visual loss; M19.90 Unspecified osteoarthritis, unspecified site; E78.5 Hyperlipidemia, unspecified; Z79.84 Long term (current) use of oral hypoglycemic drugs; Z87.891 Personal history of nicotine dependence; Z79.82 Long term (current) use of aspirin; Z79.899 Other long term (current) drug therapy
CPT/HCPCS: 36415; 71046; 80048; 80053; 82962; 83605; 85025; 85027; 87040; 87070; 87205; 94640; 96374; 99285; A9270-GY; J1650; J1815-GY; J1956; J2920; J2930; J7030; J7050

== ENCOUNTER 2018-03-20 15:07 | Emergency (ER) | payer SELFPAY ==
[2018-03-20] MEDS: Albuterol/Ipratropium 3.0-0.5 MG/3 ML Neb Soln NEB ONE (15:21)
[2018-03-20 15:22] VITALS: BP 130/79
[2018-03-20 15:55] LABS: CHLORIDE,CL 101 mmol/L (101-111); SODIUM,NA 139 mmol/L (135-145)
--- NOTE | 2018-03-20 16:00 | CR ---
Clinical history: 57-year-old male COPD and shortness of breath. Interpretation: Coarse accentuation central lung markings with some fine interstitial nodularity and mild peribronchial "cuffing" but no appreciable air trapping and no focal lobar pneumonia. No parench ymal lung mass lesion or hilar/mediastinal lymphadenopathy. Normal cardiac silhouette without cephalization of vascular flow, signs of alveolar edema or dependen t effusion. No atelectasis/collapse. No pneumothorax. No bullous emphysematous lesions. CONCLUSION: Chronic pubic/interstitial pattern unchanged since 16 January 2018. No new signs of heart f ailure or lobar pneumonia.
[2018-03-20] MEDS: predniSONE 20 MG Tab PO ONE (16:10)
--- NOTE | 2018-03-20 16:12 | EDM.PDOC ---
ED HPI GENERAL MEDICAL PROBLEM - General Chief Complaint: Respiratory Problem Stated Complaint: [id number] CANT BREATHE Time Seen by Provider: 03/20/18 15:50 Source of Information: Reports: Patient History Limitations: Reports: No Limitations - History of Present Illness INITIAL COMMENTS - FREE TEXT/NARRATIVE: This 57 yo male patient reports to the ED with a 3-4 day history of increased shortness of breath and cough. The patient reports that he quit smoking 18 months ago. The patient has been doing his home nebulizer treatments. The patient reports he has been dealing with symptoms for years and has these episodes sporadically. Onset: Gradual Duration: Day(s):, Constant, Getting Worse Location: Reports: Chest Severity: Moderate Improves with: Reports: Rest Worsens with: Reports: Movement Context: Reports: Other Associated Symptoms: Reports: No Other Symptoms - Related Data Allergies Allergy/AdvReac Type Severity Reaction Status Date / Time No Known Allergies Allergy Verified 03/20/18 15:22 Home Meds: Home Meds Simvastatin 20 mg PO BEDTIME 08/25/14 [History] glyBURIDE [Glyburide] 5 mg PO BID 08/25/14 [History] metFORMIN [Glucophage] 1,000 mg PO BID 08/25/14 [History] Albuterol Sulfate [Albuterol Sulfate HFA] 2 puff INH Q6H PRN 12/23/14 [History] Aspirin [Cascade Aspirin] 81 mg PO DAILY 12/23/14 [History] Ibuprofen [Motrin] 600 mg PO Q6H PRN 09/19/15 [History] Ipratropium/Albuterol Sulfate [Iprat-Albut 0.5-3(2.5) MG/3 ML] 1 vial INH QID PRN 09/19/15 [History] Acetaminophen [Tylenol Extra Strength] 500 mg PO Q6HR PRN 10/17/15 [History] DULoxetine [Cymbalta] 30 mg PO DAILY 01/17/18 [History] Vitamin E 1,000 unit PO BEDTIME 01/17/18 [History] Albuterol/Ipratropium [DuoNeb 3.0-0.5 MG/3 ML] 3 ml NEB TID #60 neb 01/19/18 [Rx ] Budesonide [Pulmicort] 0.5 mg NEB BID #60 neb 01/19/18 [Rx] Past Medical History HEENT History: Reports: Cataract, Impaired Vision Cardiovascular History: Reports: High Cholesterol, SOB on Exertion Respiratory History: Reports: COPD, SOB Gastrointestinal History: Reports: Other (See Below) Musculoskeletal History: Reports: Arthritis, Osteoarthritis Neurological History: Reports: Neuropathy, Peripheral Psychiatric History: Reports: None Endocrine/Metabolic History: Reports: Diabetes, Type II Hematologic History: Reports: None Immunologic History: Reports: None Oncologic (Cancer) History: Reports: None - Infectious Disease History Infectious Disease History: Reports: Chicken Pox, Measles - Past Surgical History HEENT Surgical History: Reports: Cataract Surgery, Oral Surgery Musculoskeletal Surgical History: Reports: Arthroscopic Knee Social & Family History - Family History Family Medical History: Noncontributory Other Respiratory Family Hisory: father from lung cancer Endocrine/Metabolic: Reports: Diabetes, type II Other Endocrine/Metabolic Family History: mother has DM and possibley hypercholesterolemia - Tobacco Use Smoking Status *Q: Former Smoker Years of Tobacco use: 45 Packs/Tins Daily: 1 Used Tobacco, but Quit: Yes Month/Year Tobacco Last Used: 000 - Caffeine Use Caffeine Use: Reports: Coffee - Alcohol Use Days Per Week of Alcohol Use: 1 Number of Drinks Per Day: 2 Total Drinks Per Week: 2 - Recreational Drug Use Recreational Drug Use: No - Living Situation & Occupation Living situation: Reports: ED ROS GENERAL - Review of Systems Review Of Systems: ROS reveals no pertinent complaints other than HPI. ED EXAM, GENERAL - Physical Exam Exam: See Below Exam Limited By: No Limitations General Appearance: Alert, WD/WN, Moderate Distress Eye Exam: Bilateral Eye: EOMI, Normal Inspection, PERRL Ears: Normal External Exam, Normal Canal, Hearing Grossly Normal, Normal TMs Nose: Normal Inspection, Normal Mucosa, No Blood Throat/Mouth: Normal Inspection, Normal Lips, Normal Teeth, Normal Gums, Normal Oropharynx, Normal Voice, No Airway Compromise Head: Atraumatic, Normocephalic Neck: Normal Inspection, Supple, Non-Tender, Full Range of Motion Respiratory/Chest: Wheezing Cardiovascular: Normal Peripheral Pulses, Regular Rate, Rhythm, No Edema, No Gallop, No JVD, No Murmur, No Rub GI/Abdominal: Normal Bowel Sounds, Soft, Non-Tender, No Organomegaly, No Distention, No Abnormal Bruit, No Mass (Male) Exam: Deferred Rectal (Males) Exam: Deferred Extremities: Normal Inspection, Normal Range of Motion, Non-Tender, Normal Capillary Refill, No Pedal Edema Neurological: Alert, Oriented, CN II-XII Intact, Normal Cognition, Normal Gait, Normal Reflexes, No Motor/Sensory Deficits Psychiatric: Normal Affect, Normal Mood Skin Exam: Warm, Dry, Intact, Normal Color, No Rash Lymphatic: No Adenopathy Course - Vital Signs Last Recorded V/S: Last Vital Signs Temp 36.8 C 03/20/18 15:19 Pulse 113 H 03/20/18 15:19 Resp 24 H 03/20/18 15:19 BP 130/79 03/20/18 15:19 Pulse Ox 96 03/20/18 15:19 - Orders/Labs/Meds Orders: Active Orders 24 hr Category Date Time Status RT Aerosol Therapy [RC] ASDIRECTED Care 03/20/18 15:17 Active Labs: Laboratory Tests 03/20/18 03/20/18 Range/Units 15:27 15:27 WBC 9.9 (5.0-10.0) 10^3/uL RBC 4.64 (4.6-6.2) 10^6/uL Hgb 14.0 (14.0-18.0) g/dL Hct 41.8 (40.0-54.0) % MCV 90.1 (80-100) fL MCH 30.2 (27.0-34.0) pg MCHC 33.5 (33.0-35.0) g/dL Plt Count 382 (150-450) 10^3/uL Neut % (Auto) 47.4 (42.2-75.2) % Lymph % (Auto) 28.1 (20.5-50.1) % [place] % (Auto) 8.6 H (2-8) % Eos % (Auto) 15.0 H (1.0-3.0) % Baso % (Auto) 0.9 (0.0-1.0) % Sodium 139 (135-145) mmol/L Potassium 4.2 (3.6-5.0) mmol/L Chloride 101 (101-111) mmol/L Carbon Dioxide 28.0 (21.0-31.0) mmol/L Anion Gap 14.2 BUN 10 (7-18) mg/dL Creatinine 0.9 (0.6-1.3) mg/dL Est Cr Clr Drug Dosing 83.65 mL/min Estimated GFR (MDRD) > 60 BUN/Creatinine Ratio 11.11 Glucose 170 H (74-105) mg/dL Calcium 9.4 (8.4-10.2) mg/dl Total Bilirubin 0.6 (0.2-1.0) mg/dL AST 31 (10-42) IU/L ALT 26 (10-60) IU/L Alkaline Phosphatase 74 (42-121) IU/L B-Natriuretic Peptide 7 (0-100) pg/ml Total Protein 7.3 (6.7-8.2) g/dl Albumin 4.3 (3.2-5.5) g/dl Globulin 3.0 Albumin/Globulin Ratio 1.43 Meds: Medications Discontinued Medications Generic Name Dose Route Start Last Admin Trade Name Freq PRN Reason Stop Dose Admin Albuterol/Ipratropium 3 ml 03/20/18 15:17 03/20/18 15:21 Duoneb 3.0-0.5 Mg/3 Ml NEB 03/20/18 15:18 3 ml ONETIME ONE Administration Prednisone 40 mg 03/20/18 16:06 Prednisone PO 03/20/18 16:07 ONETIME ONE Departure - Departure Time of Disposition: 16:19 Disposition: Home, Self-Care 01 Condition: Fair Clinical Impression: Bronchitis, Acute exacerbation of chronic obstructive pulmonary disease (COPD) - Discharge Information Instructions: Chronic Obstructive Pulmonary Disease Exacerbation, [id number] , Acute Bronchitis, Adult, [id number] Referrals: Juliocesar Stout MD [Primary Care Provider] - Care Plan Goals: The patient was advised of the examination, lab and x-ray results during the visit. The patient was given an oral dose of Prednisone while in the ED. The patient was given prescriptions for Levaquin (500 mg) to take 1 by mouth daily for 7 days and Prednisone (20 mg) #10 to take 2 by mouth daily for 5 days. If the patient has any additional symptoms or concerns, the patient should follow- up with her primary care facility or return to the emergency department. - My Orders Last 24 Hours: My Active Orders 03/20/18 15:17 RT Aerosol Therapy [RC] ASDIRECTED - Assessment/Plan Last 24 Hours: My Active Orders 03/20/18 15:17 RT Aerosol Therapy [RC] ASDIRECTED
== END 2018-03-20 16:34 | disposition home or self-care (01) ==
LOC: DL.ED 15:07
DX: J44.1 Chronic obstructive pulmonary disease with (acute) exacerbation (principal); E11.40 Type 2 diabetes mellitus with diabetic neuropathy, unspecified; Z87.891 Personal history of nicotine dependence; Z79.84 Long term (current) use of oral hypoglycemic drugs; Z79.82 Long term (current) use of aspirin
CPT/HCPCS: 36415; 71046; 80053; 83880; 85025; 94640; 99285; A9270

== ENCOUNTER 2018-10-25 20:38 | Inpatient (IN) | payer OTHER ==
[2018-10-25] MEDS ORDERED: Albuterol/Ipratropium 3.0-0.5 MG/3 ML Neb Soln NEB ONE (20:51)
[2018-10-25] MEDS ORDERED: methylPREDNISolone Sodium Succinate 125 MG/2 ML SDV IVPUSH ONE (20:54)
--- NOTE | 2018-10-25 20:59 | EDM.PDOC ---
ED HPI GENERAL MEDICAL PROBLEM - General Chief Complaint: Respiratory Problem Stated Complaint: SOB Time Seen by Provider: 10/25/18 20:50 Source of Information: Reports: Patient History Limitations: Reports: No Limitations - History of Present Illness INITIAL COMMENTS - FREE TEXT/NARRATIVE: This 58 yo male patient reports to the ED with a 2 day history of increased shortness of breath and cough. The patient reports he has a history of COPD and emphysema as well as diabetes and hyperlipidemia. The patient reports he did a nebulizer treatment at about 1800 today, with little to no symptom improvement. The patient reports he was last admitted to the hospital with similar symptoms on 05/21/18. 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 Treatments - Related Data Allergies Allergy/AdvReac Type Severity Reaction Status Date / Time No Known Allergies Allergy Verified 05/21/18 08:02 Home Meds: Home Meds Simvastatin 40 mg PO BEDTIME 08/25/14 [History] glyBURIDE [Glyburide] 5 mg PO BID 08/25/14 [History] metFORMIN [Glucophage] 1,000 mg PO BID 08/25/14 [History] Albuterol Sulfate [Albuterol Sulfate HFA] 2 puff INH Q6H PRN 12/23/14 [History] Aspirin [New Alluwe Aspirin EC] 81 mg PO DAILY 12/23/14 [History] Ipratropium/Albuterol Sulfate [Iprat-Albut 0.5-3(2.5) MG/3 ML] 1 vial INH QID PRN 09/19/15 [History] Vitamin E 1,000 unit PO BEDTIME 01/17/18 [History] Albuterol/Ipratropium [DuoNeb 3.0-0.5 MG/3 ML] 3 ml NEB TID #60 neb 01/19/18 [Rx ] Budesonide [Pulmicort] 0.5 mg NEB BID #60 neb 01/19/18 [Rx] Amoxicillin/Potassium Clav [Augmentin 875-125 Tablet] 875 mg PO BID 05/21/18 [ History] DULoxetine [Cymbalta] 30 mg PO DAILY 05/21/18 [History] predniSONE [Prednisone] 10 mg PO DAILY #20 tablet 05/24/18 [Rx] Past Medical History HEENT History: Reports: Cataract, Impaired Vision Cardiovascular History: Reports: High Cholesterol, SOB on Exertion Respiratory History: Reports: COPD, SOB Gastrointestinal History: Reports: Other (See Below) Musculoskeletal History: Reports: Arthritis, Back Pain, Chronic, Osteoarthritis Neurological History: Reports: Neuropathy, Peripheral Psychiatric History: Reports: None Endocrine/Metabolic History: Reports: Diabetes, Type II Hematologic History: Reports: None Immunologic History: Reports: None Oncologic (Cancer) History: Reports: None - Infectious Disease History Infectious Disease History: Reports: Chicken Pox, Measles - Past Surgical History HEENT Surgical History: Reports: Cataract Surgery, Oral Surgery Musculoskeletal Surgical History: Reports: Arthroscopic Knee Social & Family History - Family History Family Medical History: Noncontributory Other Respiratory Family Hisory: father from lung cancer Endocrine/Metabolic: Reports: Diabetes, type II Other Endocrine/Metabolic Family History: mother has DM and possibley hypercholesterolemia - Tobacco Use Smoking Status *Q: Current Every Day Smoker Years of Tobacco use: 45 Packs/Tins Daily: 0.5 Second Hand Smoke Exposure: Yes - Caffeine Use Caffeine Use: Reports: Coffee - Recreational Drug Use Recreational Drug Use: No - Living Situation & Occupation Living situation: Reports: ED ROS GENERAL - Review of Systems Review Of Systems: ROS reveals no pertinent complaints other than HPI. ED EXAM, GENERAL - Physical Exam Exam: See Below Exam Limited By: No Limitations General Appearance: Alert, WD/WN, Moderate Distress Eye Exam: Bilateral Eye: EOMI, Normal Inspection, PERRL Ears: Normal External Exam, Normal Canal, Hearing Grossly Normal, Normal TMs Nose: Normal Inspection, Normal Mucosa, No Blood Throat/Mouth: Normal Lips, Normal Teeth, Normal Gums, Normal Voice, No Airway Compromise, Other (eerythema of posterior pharynx) Head: Atraumatic, Normocephalic Neck: Normal Inspection, Supple, Non-Tender, Full Range of Motion Respiratory/Chest: Decreased Breath Sounds, Rhonchi (throughout), Wheezing ( throughout) Cardiovascular: Normal Peripheral Pulses, Regular Rate, Rhythm, No Edema, No Gallop, No JVD, No Murmur, No Rub GI/Abdominal: Normal Bowel Sounds, Soft, Non-Tender, No Organomegaly, No Distention, No Abnormal Bruit, No Mass (Male) Exam: Deferred Rectal (Males) Exam: Deferred Back Exam: Normal Inspection, Full Range of Motion, NT Extremities: Normal Inspection, Normal Range of Motion, Non-Tender, Normal Capillary Refill, No Pedal Edema Neurological: Alert, Oriented, CN II-XII Intact, Normal Cognition, Normal Gait, Normal Reflexes, No Motor/Sensory Deficits Psychiatric: Normal Affect, Normal Mood Skin Exam: Warm, Dry, Intact, Normal Color, No Rash Lymphatic: No Adenopathy Course - Vital Signs Last Recorded V/S: Last Vital Signs Temp 37.3 C 10/25/18 20:41 Pulse 130 H 10/25/18 20:41 Resp 24 H 10/25/18 20:41 BP 131/60 10/25/18 20:41 Pulse Ox 86 L 10/25/18 20:41 - Orders/Labs/Meds Orders: Active Orders 24 hr Category Date Time Status RT Aerosol Therapy [RC] ASDIRECTED Care 10/25/18 20:51 Active Chest 2V [CR] Urgent Exams 10/25/18 20:48 Taken CULTURE BLOOD [BC] Stat Lab 10/25/18 20:56 Received Azithromycin [Zithromax] 500 mg Med 10/25/18 21:26 Ordered Sodium Chloride 0.9% [Normal Saline] 250 ml IV ONETIME Medication Orders Azithromycin 500 mg/ Sodium (Chloride) 250 mls @ 250 mls/hr IV ONETIME ONE Stop: 10/25/18 22:25 Labs: Laboratory Tests 10/25/18 10/25/18 10/25/18 Range/Units 20:56 20:56 20:56 WBC 19.8 H (5.0-10.0) 10^3/uL RBC 5.29 (4.6-6.2) 10^6/uL Hgb 15.7 D (14.0-18.0) g/dL Hct 45.5 (40.0-54.0) % MCV 86.0 D (80-100) fL MCH 29.7 (27.0-34.0) pg MCHC 34.5 (33.0-35.0) g/dL Plt Count 353 (150-450) 10^3/uL Neut % (Auto) 80.9 H (42.2-75.2) % Lymph % (Auto) 8.2 L (20.5-50.1) % Tom[place]kins % (Auto) 6.6 (2-8) % Eos % (Auto) 4.0 H (1.0-3.0) % Baso % (Auto) 0.3 (0.0-1.0) % Sodium 136 (135-145) mmol/L Potassium 3.8 (3.6-5.0) mmol/L Chloride 99 L (101-111) mmol/L Carbon Dioxide 25.0 (21.0-31.0) mmol/L Anion Gap 15.8 BUN 15 (7-18) mg/dL Creatinine 0.8 (0.6-1.3) mg/dL Est Cr Clr Drug Dosing 89.72 mL/min Estimated GFR (MDRD) > 60 BUN/Creatinine Ratio 18.75 Glucose 198 H (74-105) mg/dL Lactic Acid 1.6 (0.5-2.2) mmol/L Calcium 9.0 (8.4-10.2) mg/dl Total Bilirubin 0.7 (0.2-1.0) mg/dL AST 22 (10-42) IU/L ALT 16 (10-60) IU/L Alkaline Phosphatase 98 (42-121) IU/L Total Protein 7.5 (6.7-8.2) g/dl Albumin 4.2 (3.2-5.5) g/dl Globulin 3.3 Albumin/Globulin Ratio 1.27 Meds: Medications Generic Name Dose Route Start Last Admin Trade Name Fabienq PRN Reason Stop Dose Admin Azithromycin 500 mg/ Sodium 250 mls @ 250 mls/hr 10/25/18 21:26 Chloride IV 10/25/18 22:25 ONETIME ONE Discontinued Medications Generic Name Dose Route Start Last Admin Trade Name Freq PRN Reason Stop Dose Admin Albuterol/Ipratropium 3 ml 10/25/18 20:51 10/25/18 21:00 Duoneb 3.0-0.5 Mg/3 Ml NEB 10/25/18 20:52 3 ml ONETIME ONE Administration Ceftriaxone Sodium 1 gm 10/25/18 21:26 Rocephin IVPUSH 10/25/18 21:27 ONETIME ONE Methylprednisolone Sodium Succinate 125 mg 10/25/18 20:54 10/25/18 21:01 Solu-Medrol IVPUSH 10/25/18 20:55 125 mg ONETIME ONE Administration Departure - Departure Time of Disposition: 21:33 Disposition: Admitted As Inpatient 65 Condition: Poor Clinical Impression: COPD exacerbation Pneumonia Qualifiers: Pneumonia type: due to unspecified organism Laterality: right Lung location: middle lobe of lung Qualified Code(s): J18.1 - Lobar pneumonia, unspecified organism - Discharge Information *PRESCRIPTION DRUG MONITORING PROGRAM REVIEWED*: Not Applicable *COPY OF PRESCRIPTION DRUG MONITORING REPORT IN PATIENT ANNEL: Not Applicable Care Plan Goals: Discussed the patient's history, examination, lab, x-ray and treatments with Dr. Stout. Dr. Stout accepted the patient as an acute admission to [facility]. The patient was given a Duoneb treatment, Solumedrol , Rocephin and Azithromycin while in the ED. - My Orders Last 24 Hours: My Active Orders 10/25/18 20:48 Chest 2V [CR] Urgent 10/25/18 20:51 RT Aerosol Therapy [RC] ASDIRECTED 10/25/18 20:56 CULTURE BLOOD [BC] Stat 10/25/18 21:26 Azithromycin [Zithromax] 500 mg Sodium Chloride 0.9% [Normal Saline] 250 ml IV ONETIME - Assessment/Plan Last 24 Hours: My Active Orders 10/25/18 20:48 Chest 2V [CR] Urgent 10/25/18 20:51 RT Aerosol Therapy [RC] ASDIRECTED 10/25/18 20:56 CULTURE BLOOD [BC] Stat 10/25/18 21:26 Azithromycin [Zithromax] 500 mg Sodium Chloride 0.9% [Normal Saline] 250 ml IV ONETIME
[2018-10-25 21:23] LABS: ANION GAP 15.8; CHLORIDE,CL 99 mmol/L (101-111); SODIUM,NA 136 mmol/L (135-145)
[2018-10-25] MEDS ORDERED: Azithromycin 500 MG in Sodium Chloride 0.9% 250 ML IV ONE (21:26)
[2018-10-25] MEDS ORDERED: cefTRIAXone 1 GM Vial IVPUSH ONE (21:26)
[2018-10-25] MEDS ORDERED: Ondansetron 4 MG/2 ML SDV IV ONE (21:38)
[2018-10-25] MEDS ORDERED: Acetaminophen 325 MG Tab PO PRN (21:59)
[2018-10-25] MEDS ORDERED: Ondansetron 4 MG Tab.DIS PO PRN (21:59)
[2018-10-25] MEDS: traZODone 50 MG Tab PO SCH (23:08)
[2018-10-25] MEDS: metFORMIN 500 MG Tab PO SCH (23:08)
[2018-10-25] MEDS: glyBURIDE 5 MG Tab PO SCH (23:09)
[2018-10-25] MEDS: Simvastatin 40 MG Tab PO SCH (23:09)
[2018-10-25] MEDS: Sodium Chloride 0.9% 1,000 ML IV SCH (23:10)
[2018-10-26] MEDS: Albuterol/Ipratropium 3.0-0.5 MG/3 ML Neb Soln NEB SCH ×4 (00:31→17:24)
--- NOTE | 2018-10-26 01:55 | HP ---
CHIEF COMPLAINT: Shortness of breath. HISTORY OF PRESENT ILLNESS: The patient is a 58-year-old gentleman, who was admitted through the emergency room because of a 3-4 day history of increasing shortness of breath, wheezing and cough and low-grade temperature. The patient has history of COPD and diabetes mellitus and hyperlipidemia, and he mentioned that he has given himself some nebulization treatment at home about 6:00 this evening with little to no improvement. Because of this, he went to the emergency room and he was subsequently admitted. He denies though any chest pain, orthopnea, PND, pedal edema, abdominal pain, dysuria, diarrhea nor any other complaints. PAST MEDICAL HISTORY: Remarkable for COPD, tobacco habituation, type 2 diabetes mellitus, and hyperlipidemia. FAMILY HISTORY: Noncontributory. SOCIAL HISTORY: The patient is and the patient still smokes cigarettes occasionally and also drinks beer occasionally. REVIEW OF SYSTEMS: As in HPI, the rest of the review of systems is negative. HOME MEDICATION: 1. Albuterol sulfate. 2. Metformin 1 g b.i.d. 3. Glyburide 5 mg p.o. b.i.d. 4. Simvastatin 40 mg at bedtime. 5. Trazodone 50 mg daily. ALLERGIES: No known drug allergies. PHYSICAL EXAMINATION: General: The patient is alert and oriented. He is in moderate respiratory distress. Vital Signs: Blood pressure is 131/60, pulse of 130, respiration 24, saturation is 86% on room air, temperature of 99.1. SHEENT: Normocephalic. There is pink palpebral conjunctiva. Sclerae anicteric. No JVD, no lymphadenopathy. Heart: Regular, slightly tachycardic. No gallops. No rubs. Lungs: Remarkable for diminished breath sounds bilaterally with scattered rhonchi and expiratory wheeze bilaterally. Abdomen: Soft and nontender. Bowel sounds positive. Extremities: Negative for any pedal edema. No calf tenderness. LABORATORY DATA: Lab workup, CBC; WBC is 19.8, hemoglobin is 15.7, hematocrit is 45.5, platelet is 353. Comp panel; chloride is 99, glucose is 198. The rest of the panel unremarkable. Chest x-ray, my reading, increased bronchovascular markings, but no infiltrate or pneumothorax or any pleural effusion. ADMITTING DIAGNOSES: 1. Chronic obstructive pulmonary disease exacerbation. 2. Hypoxemia. 3. Type 2 diabetes mellitus. 4. Dyslipidemia. 5. Tobacco habituation. TREATMENT PLAN: The patient is going to be admitted to General Medicine Floor. He was started on Rocephin and azithromycin in the emergency room and was also given Solu-Medrol and this will be continued. He will be on DVT prophylaxis. He will be on DuoNeb treatments and the rest of the management as necessary, and the patient is a full code. [facility] /[id number]
[2018-10-26] MEDS ORDERED: methylPREDNISolone Sodium Succinate 125 MG/2 ML SDV IVPUSH SCH (05:00)
[2018-10-26] MEDS: Insulin Lispro 100 Units/ML 3 ML Vial SUBCUT SCH ×4 (08:37→21:18)
[2018-10-26] MEDS: traZODone 50 MG Tab PO SCH (08:39)
[2018-10-26] MEDS: Aspirin 81 MG Tab.EC PO SCH (08:39)
[2018-10-26] MEDS: metFORMIN 500 MG Tab PO SCH ×2 (08:39→21:20)
[2018-10-26] MEDS: glyBURIDE 5 MG Tab PO SCH ×2 (08:40→21:20)
[2018-10-26] MEDS: Enoxaparin 40 MG/0.4 ML Syringe SUBCUT SCH (08:40)
[2018-10-26] MEDS: Nicotine 14 MG/24 Hr Patch TRDERM SCH (08:41)
[2018-10-26] MEDS ORDERED: traZODone 50 MG Tab PO SCH (09:00)
[2018-10-26] MEDS ORDERED: glyBURIDE 5 MG Tab PO SCH (09:00)
[2018-10-26] MEDS ORDERED: Non-Formulary Medication 1 Each (Metformin [Glucophage] 1,000 MG) PO SCH (09:00)
--- NOTE | 2018-10-26 11:14 | PN ---
DATE: 10/26/2018 SUBJECTIVE: The patient is slowly improving. He still has some coughing spells, but overall, he is feeling much better. He denies any chest pain, orthopnea, PND, headache, nor any other complaints. Blood sugar this morning is 305. OBJECTIVE: Vital Signs: Blood pressure is 118/71, pulse of 94, respirations 20, temperature of 97.7, saturation is 91% on 2 L per nasal cannula. Heart: Regular rate and rhythm. Normal S1 and S2. No gallops. No rubs. Lungs: Equal bilaterally. Still with some mild rhonchi and mild expiratory wheeze but (better). No significant crackles. Abdomen: Soft and nontender. Bowel sounds are positive. Extremities: Negative for any significant pedal edema. No calf tenderness. MEDICATIONS: Reviewed. PLAN: We will cut down the dose of his Solu-Medrol to 40 mg IV daily, and we will continue with Rocephin and azithromycin. [facility] /[id number]
[2018-10-26] MEDS: Sodium Chloride 0.9% 1,000 ML IV SCH (12:04)
[2018-10-26] MEDS: methylPREDNISolone Sodium Succinate 40 MG/1 ML SDV IVPUSH SCH ×2 (12:33→21:20)
[2018-10-26] MEDS ORDERED: Non-Formulary Medication 1 Each (Simvastatin [Simvastatin] 40 MG) PO SCH (21:00)
[2018-10-26] MEDS: cefTRIAXone 1 GM in Sodium Chloride 0.9% 100 ML IV SCH (21:20)
[2018-10-26] MEDS: Simvastatin 40 MG Tab PO SCH (21:21)
[2018-10-26] MEDS: Azithromycin 500 MG in Sodium Chloride 0.9% 250 ML IV SCH (22:15)
[2018-10-27] MEDS: Albuterol/Ipratropium 3.0-0.5 MG/3 ML Neb Soln NEB SCH ×4 (01:04→18:06)
[2018-10-27] MEDS: Sodium Chloride 0.9% 1,000 ML IV SCH (02:20)
[2018-10-27] MEDS: methylPREDNISolone Sodium Succinate 40 MG/1 ML SDV IVPUSH SCH (05:28)
[2018-10-27] MEDS: Insulin Lispro 100 Units/ML 3 ML Vial SUBCUT SCH ×4 (08:25→21:52)
[2018-10-27] MEDS: metFORMIN 500 MG Tab PO SCH ×2 (08:27→21:42)
[2018-10-27] MEDS: Enoxaparin 40 MG/0.4 ML Syringe SUBCUT SCH (08:27)
[2018-10-27] MEDS: traZODone 50 MG Tab PO SCH (08:27)
[2018-10-27] MEDS: glyBURIDE 5 MG Tab PO SCH ×2 (08:28→21:43)
[2018-10-27] MEDS: Aspirin 81 MG Tab.EC PO SCH (08:28)
[2018-10-27] MEDS: Nicotine 14 MG/24 Hr Patch TRDERM SCH (08:29)
--- NOTE | 2018-10-27 12:21 | PCM.PN ---
- General Info Date of Service: 10/27/18 Admission Dx/Problem (Free Text): COPD exacerbation Subjective Update: i saw and examined the patient at the bedside this morning Patient symptoms are improved, shortness of breath and cough are much better compared to when he was admitted 2 days ago patient still has some wheezing No chest pain, no abdominal pain, no urinary symptoms - Review of Systems General: Reports: No Symptoms HEENT: Reports: No Symptoms Pulmonary: Reports: Shortness of Breath, Cough Cardiovascular: Reports: No Symptoms Gastrointestinal: Reports: No Symptoms Genitourinary: Reports: No Symptoms Musculoskeletal: Reports: No Symptoms Skin: Reports: No Symptoms - Patient Data Vitals - Most Recent: Last Vital Signs Temp 36.9 C 10/27/18 07:55 Pulse 98 10/27/18 07:55 Resp 20 10/27/18 07:55 BP 125/71 10/27/18 07:55 Pulse Ox 91 L 10/27/18 11:32 Weight - Most Recent: 75.705 kg I&O - Last 24 Hours: Intake & Output 10/26/18 10/27/18 10/27/18 22:59 06:59 14:59 Intake Total 5415 122 2719 Output Total 1700 500 Balance -550 -110 1413 Lab Results Last 24 Hours: Laboratory Results - last 24 hr 10/26/18 10/26/18 10/27/18 Range/Units 16:34 20:38 07:34 POC Glucose 256 H 283 H 259 H (70-105) mg/dl 10/27/18 Range/Units 11:14 POC Glucose 266 H (70-105) mg/dl Lopez Results Last 24 Hours: Microbiology 10/25/18 20:56 Aerobic Blood Culture - Preliminary Blood NO GROWTH AFTER 1 DAY Anaerobic Blood Culture - Preliminary NO GROWTH AFTER 1 DAY Med Orders - Current: Current Medications Acetaminophen (Tylenol) 650 mg PO Q4H PRN PRN Reason: Pain (Mild 1-3)/fever Albuterol/Ipratropium (Duoneb 3.0-0.5 Mg/3 Ml) 3 ml NEB Q6HRRT [facility] Last Admin: 10/27/18 07:11 Dose: 3 ml Aspirin (Halfprin) 81 mg PO DAILY [facility] Last Admin: 10/27/18 08:28 Dose: 81 mg Enoxaparin Sodium (Lovenox) 40 mg SUBCUT DAILY [facility] Last Admin: 10/27/18 08:27 Dose: 40 mg Glyburide (Micronase) 10 mg PO BID [facility] Last Admin: 10/27/18 08:28 Dose: 10 mg Ceftriaxone Sodium 1 gm/ (Sodium Chloride) 100 mls @ 200 mls/hr IV Q24H [facility] Last Admin: 10/26/18 21:20 Dose: 200 mls/hr Azithromycin 500 mg/ Sodium (Chloride) 250 mls @ 250 mls/hr IV Q24H [facility] Last Admin: 10/26/18 22:15 Dose: 250 mls/hr Insulin Human Lispro (Humalog) 0 unit SUBCUT QIDACANDBED [facility]; Protocol Last Admin: 10/27/18 08:25 Dose: 6 units Metformin HCl (Glucophage) 1,000 mg PO BID [facility] Last Admin: 10/27/18 08:27 Dose: 1,000 mg Mometasone Furoate/Formoterol Fumar (Dulera 100-5 Mcg) 2 puff IH BIDRT [facility] Nicotine (Habitrol) 14 mg TRDERM DAILY [facility] Last Admin: 10/27/18 08:29 Dose: Not Given Ondansetron HCl (Zofran Odt) 4 mg PO Q4H PRN PRN Reason: nausea, able to take PO Prednisone (Prednisone) 40 mg PO WITHBREAKFAST [facility] Simvastatin (Zocor) 40 mg PO BEDTIME [facility] Last Admin: 10/26/18 21:21 Dose: 40 mg Tiotropium [place] (Spiriva Handihaler) 18 mcg INH DAILY [facility] Trazodone HCl (Trazodone) 50 mg PO DAILY@2100 [facility] Discontinued Medications Albuterol/Ipratropium (Duoneb 3.0-0.5 Mg/3 Ml) 3 ml NEB ONETIME ONE Stop: 10/25/18 20:52 Last Admin: 10/25/18 21:00 Dose: 3 ml Ceftriaxone Sodium (Rocephin) 1 gm IVPUSH ONETIME ONE Stop: 10/25/18 21:27 Last Admin: 10/25/18 21:35 Dose: 1 gm Glyburide (Micronase) 5 mg PO BID [facility] Azithromycin 500 mg/ Sodium (Chloride) 250 mls @ 250 mls/hr IV ONETIME ONE Stop: 10/25/18 22:25 Last Admin: 10/25/18 21:37 Dose: 250 mls/hr Sodium Chloride (Normal Saline) 1,000 mls @ 75 mls/hr IV ASDIRECTED [facility] Last Admin: 10/27/18 02:20 Dose: 75 mls/hr Methylprednisolone Sodium Succinate (Solu-Medrol) 125 mg IVPUSH ONETIME ONE Stop: 10/25/18 20:55 Last Admin: 10/25/18 21:01 Dose: 125 mg Methylprednisolone Sodium Succinate (Solu-Medrol) 80 mg IVPUSH Q8H [facility] Last Admin: 10/26/18 05:01 Dose: 80 mg Methylprednisolone Sodium Succinate (Solu-Medrol) 40 mg IVPUSH Q8H [facility] Last Admin: 10/27/18 05:28 Dose: 40 mg Non-Formulary Medication (Metformin [Glucophage]) 1,000 mg PO BID [facility] Non-Formulary Medication (Simvastatin [Simvastatin]) 40 mg PO BEDTIME [facility] Ondansetron HCl (Zofran) 4 mg IV ONETIME ONE Stop: 10/25/18 21:39 Last Admin: 10/25/18 21:42 Dose: 4 mg Trazodone HCl (Trazodone) 50 mg PO DAILY [facility] Trazodone HCl (Trazodone) 50 mg PO DAILY [facility] Last Admin: 10/27/18 08:27 Dose: Not Given - Exam General: Alert, Oriented HEENT: Pupils Equal Neck: Supple Lungs: Wheezing Cardiovascular: Regular Rate, Regular Rhythm GI/Abdominal Exam: Normal Bowel Sounds - Problem List Review Problem List Initiated/Reviewed/Updated: Yes - My Orders Last 24 Hours: My Active Orders 10/27/18 10:56 RT Post Treatment Assessment [RC] Click to Edit RT Pre-Treatment Assessment [RC] Click to Edit predniSONE 40 mg PO WITHBREAKFAST 10/27/18 11:00 Tiotropium [Spiriva HandiHaler] 18 mcg INH DAILY 10/27/18 18:00 Mometasone/Formoterol [Dulera 100-5 MCG] 2 puff IH BIDRT - Plan Plan:: 58-year-old male with a past medical history of cigarette smoking, COPD who presents with shortness of breath and cough. Being managed by a COPD exacerbation. #. COPD exacerbation Symptoms improving Continue DuoNebs start Dulera plus Tiotropium can switch Solu-Medrol to oral prednisone Continue azithromycin consult patient to stop smoking possible discharge tomorrow #. Type 2 diabetes mellitus hyperglycemia likely secondary to steroids continue insulin sliding scale, oral diabetic meds # DVT prophylaxis Subcutaneous Lovenox
[2018-10-27] MEDS: Tiotropium Inhaler 18 MCG Inhalation Powder Cap Kit of 5 INH SCH (12:24)
[2018-10-27] MEDS: predniSONE 20 MG Tab PO SCH (12:27)
[2018-10-27] MEDS: Formoterol/Mometasone 100-5 MCG 8.8 GM Inhaler IH SCH (18:05)
[2018-10-27] MEDS ORDERED: traZODone 50 MG Tab PO SCH (21:00)
[2018-10-27] MEDS: cefTRIAXone 1 GM in Sodium Chloride 0.9% 100 ML IV SCH (21:36)
[2018-10-27] MEDS: Simvastatin 40 MG Tab PO SCH (21:44)
[2018-10-27] MEDS: Azithromycin 500 MG in Sodium Chloride 0.9% 250 ML IV SCH (22:12)
[2018-10-28] MEDS: Albuterol/Ipratropium 3.0-0.5 MG/3 ML Neb Soln NEB SCH ×3 (01:59→12:02)
[2018-10-28 08:05] VITALS: BP 128/77
[2018-10-28] MEDS: Insulin Lispro 100 Units/ML 3 ML Vial SUBCUT SCH ×2 (09:34→13:01)
[2018-10-28] MEDS: metFORMIN 500 MG Tab PO SCH (09:51)
[2018-10-28] MEDS: glyBURIDE 5 MG Tab PO SCH (09:51)
[2018-10-28] MEDS: Aspirin 81 MG Tab.EC PO SCH (09:52)
[2018-10-28] MEDS: predniSONE 20 MG Tab PO SCH (09:52)
[2018-10-28] MEDS: Tiotropium Inhaler 18 MCG Inhalation Powder Cap Kit of 5 INH SCH (09:59)
[2018-10-28] MEDS: Formoterol/Mometasone 100-5 MCG 8.8 GM Inhaler IH SCH (09:59)
[2018-10-28] MEDS: Nicotine 14 MG/24 Hr Patch TRDERM SCH (10:00)
[2018-10-28] MEDS: Enoxaparin 40 MG/0.4 ML Syringe SUBCUT SCH (10:00)
--- NOTE | 2018-10-28 11:28 | PCM.DCSUM1 ---
Discharge Summary - Hospital Course Free Text/Narrative:: 58-year-old male with a past medical history of cigarette smoking, COPD who presents with shortness of breath and cough. Being managed by a COPD exacerbation. Symptoms improved with steroids and neb treatments. Was started on Dulera and Tiotropium. Will follow up with PCP and Pulm specialist. Counselled to quit tobacco smoking and patient is willing. Flu and pneumonia shots prescribed. Diagnosis: Stroke: No Modified [place] Scale: No Symptoms at All Modified Amber Scale Score: 0 - Discharge Data Discharge Date: 10/28/18 Discharge Disposition: Home, Self-Care 01 Condition: Good - Patient Instructions Diet: Usual Diet as Tolerated Activity: As Tolerated Showering/Bathing: May Shower - Discharge Plan *PRESCRIPTION DRUG MONITORING PROGRAM REVIEWED*: Not Applicable *COPY OF PRESCRIPTION DRUG MONITORING REPORT IN PATIENT ANNEL: Not Applicable Prescriptions/Med Rec: Flu Vacc Quad 2017-(5 Yr Up) [Afluria Quad ] 60 mcg IM ONETIME #1 vial Mometasone/Formoterol [Dulera 100-5 MCG] 2 puff IH BIDRT 90 Days inhaler Nicotine [Habitrol] 14 mg TRDERM DAILY 30 Days patch Pneumococcal 13-Valent Conjug [Prevnar 13] 0.5 ml IM ONETIME #1 syringe predniSONE 40 mg PO WITHBREAKFAST 7 Days tablet Tiotropium [Spiriva HandiHaler] 18 mcg INH DAILY 90 Days cap Home Medications: Home Meds Simvastatin 40 mg PO BEDTIME 08/25/14 [History] glyBURIDE [Glyburide] 10 mg PO BID 08/25/14 [History] metFORMIN [Glucophage] 1,000 mg PO BID 08/25/14 [History] Albuterol Sulfate [Albuterol Sulfate HFA] 2 puff INH Q6H PRN 12/23/14 [History] Aspirin [[place] Aspirin EC] 81 mg PO DAILY 12/23/14 [History] Vitamin E 1,000 unit PO BEDTIME 01/17/18 [History] traZODone HCl [Trazodone HCl] 50 mg PO BEDTIME 10/25/18 [History] Flu Vacc Quad 2017-(5 Yr Up) [Afluria Quad ] 60 mcg IM ONETIME #1 vial 10/28/18 [Rx] Mometasone/Formoterol [Dulera 100-5 MCG] 2 puff IH BIDRT 90 Days inhaler [Rx] Nicotine [Habitrol] 14 mg TRDERM DAILY 30 Days patch 10/28/18 [Rx] Pneumococcal 13-Valent Conjug [Prevnar 13] 0.5 ml IM ONETIME #1 syringe [Rx] Tiotropium [Spiriva HandiHaler] 18 mcg INH DAILY 90 Days cap 10/28/18 [Rx] predniSONE 40 mg PO WITHBREAKFAST 7 Days tablet 10/28/18 [Rx] Patient Handouts: Steps to Quit Smoking, [id number], Hypoxemia, Chronic Obstructive Pulmonary Disease, [id number] Referrals: Juliocesar Stout MD [Primary Care Provider] - - Discharge Summary/Plan Comment DC Time >30 min.: Yes - General Info Admission Dx/Problem (Free Text: COPD exacerbation Subjective Update: i saw and examined the patient at the bedside this morning Patient symptoms are improved, shortness of breath and cough are much better compared to when he was admitted No chest pain, no abdominal pain, no urinary symptoms - Review of Systems General: Reports: No Symptoms HEENT: Reports: No Symptoms Pulmonary: Reports: No Symptoms Cardiovascular: Reports: No Symptoms Gastrointestinal: Reports: No Symptoms Genitourinary: Reports: No Symptoms Musculoskeletal: Reports: No Symptoms - Patient Data Vitals - Most Recent: Last Vital Signs Temp 36.7 C 10/28/18 08:04 Pulse 79 10/28/18 08:04 Resp 20 10/28/18 08:04 BP 128/77 10/28/18 08:04 Pulse Ox 93 L 10/28/18 08:04 Weight - Most Recent: 75.705 kg I&O - Last 24 hours: Intake & Output 10/27/18 10/28/18 10/28/18 22:59 06:59 14:59 Intake Total 650 644 Balance 650 644 Lab Results - Last 24 hrs: Laboratory Results - last 24 hr 10/27/18 10/27/18 10/28/18 Range/Units 16:49 21:00 07:46 POC Glucose 275 H 310 H 148 H (70-105) mg/dl LAI Results - Last 24 hrs: Microbiology 10/25/18 20:56 Aerobic Blood Culture - Preliminary Blood NO GROWTH AFTER 2 DAYS Anaerobic Blood Culture - Preliminary NO GROWTH AFTER 2 DAYS Med Orders - Current: Current Medications Acetaminophen (Tylenol) 650 mg PO Q4H PRN PRN Reason: Pain (Mild 1-3)/fever Albuterol/Ipratropium (Duoneb 3.0-0.5 Mg/3 Ml) 3 ml NEB Q6HRRT [facility] [place] Last Admin: 10/28/18 08:26 Dose: Not Given Aspirin (Halfprin) 81 mg PO DAILY [facility] [place] Last Admin: 10/28/18 09:52 Dose: 81 mg Enoxaparin Sodium (Lovenox) 40 mg SUBCUT DAILY [facility] [place] Last Admin: 10/28/18 10:00 Dose: Not Given Glyburide (Micronase) 10 mg PO BID [facility] [place] Last Admin: 10/28/18 09:51 Dose: 10 mg Ceftriaxone Sodium 1 gm/ (Sodium Chloride) 100 mls @ 200 mls/hr IV Q24H [facility] [place] Last Infusion: 10/27/18 22:10 Dose: Infused Azithromycin 500 mg/ Sodium (Chloride) 250 mls @ 250 mls/hr IV Q24H [facility] [place] Last Admin: 10/27/18 22:12 Dose: 250 mls/hr Insulin Human Lispro (Humalog) 0 unit SUBCUT QIDACANDBED [facility] [place]; Protocol Last Admin: 10/28/18 09:34 Dose: Not Given Metformin HCl (Glucophage) 1,000 mg PO BID [facility] [place] Last Admin: 10/28/18 09:51 Dose: 1,000 mg Mometasone Furoate/Formoterol Fumar (Dulera 100-5 Mcg) 2 puff IH BIDRT [facility] [place] Last Admin: 10/28/18 09:59 Dose: 2 inhalation Nicotine (Habitrol) 14 mg TRDERM DAILY [facility] [place] Last Admin: 10/28/18 10:00 Dose: Not Given Ondansetron HCl (Zofran Odt) 4 mg PO Q4H PRN PRN Reason: nausea, able to take PO Prednisone (Prednisone) 40 mg PO WITHBREAKFAST [facility] [place] Last Admin: 10/28/18 09:52 Dose: 40 mg Simvastatin (Zocor) 40 mg PO BEDTIME [facility] [place] Last Admin: 10/27/18 21:44 Dose: 40 mg Tiotropium [place] (Spiriva Handihaler) 18 mcg INH DAILY [facility] [place] Last Admin: 10/28/18 09:59 Dose: 18 mcg Trazodone HCl (Trazodone) 50 mg PO DAILY@2100 [facility] [place] Last Admin: 10/27/18 21:43 Dose: 50 mg Discontinued Medications Albuterol/Ipratropium (Duoneb 3.0-0.5 Mg/3 Ml) 3 ml NEB ONETIME ONE Stop: 10/25/18 20:52 Last Admin: 10/25/18 21:00 Dose: 3 ml Ceftriaxone Sodium (Rocephin) 1 gm IVPUSH ONETIME ONE Stop: 10/25/18 21:27 Last Admin: 10/25/18 21:35 Dose: 1 gm Glyburide (Micronase) 5 mg PO BID [facility] [place] Azithromycin 500 mg/ Sodium (Chloride) 250 mls @ 250 mls/hr IV ONETIME ONE Stop: 10/25/18 22:25 Last Admin: 10/25/18 21:37 Dose: 250 mls/hr Sodium Chloride (Normal Saline) 1,000 mls @ 75 mls/hr IV ASDIRECTED [facility] [place] Last Admin: 10/27/18 02:20 Dose: 75 mls/hr Methylprednisolone Sodium Succinate (Solu-Medrol) 125 mg IVPUSH ONETIME ONE Stop: 10/25/18 20:55 Last Admin: 10/25/18 21:01 Dose: 125 mg Methylprednisolone Sodium Succinate (Solu-Medrol) 80 mg IVPUSH Q8H [facility] [place] Last Admin: 10/26/18 05:01 Dose: 80 mg Methylprednisolone Sodium Succinate (Solu-Medrol) 40 mg IVPUSH Q8H [facility] [place] Last Admin: 10/27/18 05:28 Dose: 40 mg Non-Formulary Medication (Metformin [Glucophage]) 1,000 mg PO BID [facility] [place] Non-Formulary Medication (Simvastatin [Simvastatin]) 40 mg PO BEDTIME [facility] [place] Ondansetron HCl (Zofran) 4 mg IV ONETIME ONE Stop: 10/25/18 21:39 Last Admin: 10/25/18 21:42 Dose: 4 mg Trazodone HCl (Trazodone) 50 mg PO DAILY [facility] [place] Trazodone HCl (Trazodone) 50 mg PO DAILY [facility] [place] Last Admin: 10/27/18 08:27 Dose: Not Given - Exam General: Reports: Alert, Oriented HEENT: Reports: Pupils Equal, Pupils Reactive Lungs: Reports: Clear to Auscultation Cardiovascular: Reports: Regular Rate, Regular Rhythm GI/Abdominal Exam: Normal Bowel Sounds
[2018-10-28] MEDS ORDERED: Pneumococcal Polyvalent-23 Vaccine 0.5 ML SDV IM ONE (11:30)
== END 2018-10-28 12:15 | disposition home or self-care (01) | DRG 192 ==
LOC: DL.ED 20:38 → UNDOADMIN 21:57 → DL.MS 21:57
PROVIDERS: ADMIT Internal Medicine; ATTEND Internal Medicine
PROC: 3E02340 Introduction of Influenza Vaccine into Muscle, Percutaneous Approach (ICD-10-PCS; principal; 2018-10-28)
PROC: 3E0234Z Introduction of Serum, Toxoid and Vaccine into Muscle, Percutaneous Approach (ICD-10-PCS; principal; 2018-10-28)
DX: J44.1 Chronic obstructive pulmonary disease with (acute) exacerbation (principal); R09.02 Hypoxemia; E11.65 Type 2 diabetes mellitus with hyperglycemia; T38.0X5A Adverse effect of glucocorticoids and synthetic analogues, initial encounter; Z23 Encounter for immunization; E78.5 Hyperlipidemia, unspecified; F17.210 Nicotine dependence, cigarettes, uncomplicated; G89.29 Other chronic pain; M54.9 Dorsalgia, unspecified; M19.90 Unspecified osteoarthritis, unspecified site; H54.7 Unspecified visual loss; G62.9 Polyneuropathy, unspecified; Z79.84 Long term (current) use of oral hypoglycemic drugs; Z79.899 Other long term (current) drug therapy; Z79.51 Long term (current) use of inhaled steroids; Z79.82 Long term (current) use of aspirin; Z80.1 Family history of malignant neoplasm of trachea, bronchus and lung; Z83.3 Family history of diabetes mellitus
CPT/HCPCS: 36415; 71046; 80053; 82962; 83605; 85025; 87040; 90686; 90732; 94640; 94760; 96374; 96375; 99285; A9270-GY; J0456; J0696; J1650; J1815; J2405; J2920; J2930; J7030; J7050; J7620-GY

== ENCOUNTER 2019-02-13 22:34 | Inpatient (IN) | payer OTHER, SELFPAY ==
[2019-02-13] MEDS ORDERED: Albuterol/Ipratropium 3.0-0.5 MG/3 ML Neb Soln NEB ONE (22:45)
[2019-02-13] MEDS ORDERED: methylPREDNISolone Sodium Succinate 125 MG/2 ML SDV IVPUSH ONE (22:45)
--- NOTE | 2019-02-13 22:48 | EDM.PDOC ---
ED HPI GENERAL MEDICAL PROBLEM - General Chief Complaint: Respiratory Problem Stated Complaint: CANT BREATHE [id number] Time Seen by Provider: 02/13/19 22:46 Source of Information: Reports: Patient History Limitations: Reports: No Limitations - History of Present Illness INITIAL COMMENTS - FREE TEXT/NARRATIVE: h/o COPD, past few days with cough congestion, nebs not helping tonight with increase SOB. - Related Data Allergies Allergy/AdvReac Type Severity Reaction Status Date / Time No Known Allergies Allergy Verified 02/13/19 22:59 Home Meds: Home Meds Simvastatin 40 mg PO BEDTIME 08/25/14 [History] glyBURIDE [Glyburide] 10 mg PO BID 08/25/14 [History] metFORMIN [Glucophage] 1,000 mg PO BID 08/25/14 [History] Albuterol Sulfate [Albuterol Sulfate HFA] 2 puff INH Q6H PRN 12/23/14 [History] Aspirin [[place] Aspirin EC] 81 mg PO DAILY 12/23/14 [History] Vitamin E 1,000 unit PO BEDTIME 01/17/18 [History] traZODone HCl [Trazodone HCl] 50 mg PO BEDTIME 10/25/18 [History] DULoxetine [Cymbalta] 30 mg PO DAILY 02/13/19 [History] Past Medical History HEENT History: Reports: Cataract, Impaired Vision Cardiovascular History: Reports: High Cholesterol, SOB on Exertion Respiratory History: Reports: COPD, SOB Gastrointestinal History: Reports: Other (See Below) Musculoskeletal History: Reports: Arthritis, Back Pain, Chronic, Osteoarthritis Neurological History: Reports: Neuropathy, Peripheral Psychiatric History: Reports: None Endocrine/Metabolic History: Reports: Diabetes, Type II Hematologic History: Reports: None Immunologic History: Reports: None Oncologic (Cancer) History: Reports: None - Infectious Disease History Infectious Disease History: Reports: Chicken Pox, Measles - Past Surgical History HEENT Surgical History: Reports: Cataract Surgery, Oral Surgery Musculoskeletal Surgical History: Reports: Arthroscopic Knee Social & Family History - Family History Family Medical History: Noncontributory Other Respiratory Family Hisory: father from lung cancer Endocrine/Metabolic: Reports: Diabetes, type II Other Endocrine/Metabolic Family History: mother has DM and possibley hypercholesterolemia - Caffeine Use Caffeine Use: Reports: Coffee - Living Situation & Occupation Living situation: Reports: ED ROS GENERAL - Review of Systems Review Of Systems: ROS reveals no pertinent complaints other than HPI. ED EXAM, GENERAL - Physical Exam Exam: See Below Exam Limited By: No Limitations General Appearance: Alert, WD/WN, Mild Distress, Other (sob) Ears: Hearing Grossly Normal Throat/Mouth: Normal Voice, No Airway Compromise Head: Atraumatic Neck: Non-Tender, Full Range of Motion Respiratory/Chest: Decreased Breath Sounds, Rales, Rhonchi, Wheezing Cardiovascular: Regular Rate, Rhythm GI/Abdominal: Soft, Non-Tender Neurological: Alert, Oriented, Normal Cognition, Normal Gait, No Motor/Sensory Deficits Psychiatric: Flat Affect Skin Exam: Warm, Dry, Normal Color Lymphatic: No Adenopathy Course - Vital Signs Last Recorded V/S: Last Vital Signs Temp 37.2 C 02/13/19 22:47 Pulse 83 02/13/19 22:47 Resp 24 H 02/13/19 22:47 BP 126/71 02/13/19 22:47 Pulse Ox 95 02/13/19 22:47 - Orders/Labs/Meds Orders: Active Orders 24 hr Category Date Time Status EKG Documentation Completion [RC] STAT Care 02/13/19 22:44 Active RT Aerosol Therapy [RC] ASDIRECTED Care 02/13/19 22:45 Active Labs: Laboratory Tests 02/13/19 02/13/19 02/13/19 Range/Units 22:51 22:51 22:51 WBC 10.0 (5.0-10.0) 10^3/uL RBC 4.65 (4.6-6.2) 10^6/uL Hgb 14.1 D (14.0-18.0) g/dL Hct 41.5 (40.0-54.0) % MCV 89.2 D (80-100) fL MCH 30.3 (27.0-34.0) pg MCHC 34.0 (33.0-35.0) g/dL Plt Count 316 (150-450) 10^3/uL Neut % (Auto) 65.3 (42.2-75.2) % Lymph % (Auto) 18.4 L (20.5-50.1) % [place] % (Auto) 12.4 H (2-8) % Eos % (Auto) 3.5 H (1.0-3.0) % Baso % (Auto) 0.4 (0.0-1.0) % Sodium 134 L (135-145) mmol/L Potassium 3.7 (3.6-5.0) mmol/L Chloride 99 L (101-111) mmol/L Carbon Dioxide 24.0 (21.0-31.0) mmol/L Anion Gap 14.7 BUN 18 (7-18) mg/dL Creatinine 0.9 (0.6-1.3) mg/dL Est Cr Clr Drug Dosing 79.75 mL/min Estimated GFR (MDRD) > 60 BUN/Creatinine Ratio 20.00 Glucose 302 H (74-105) mg/dL Lactic Acid 2.1 (0.5-2.2) mmol/L Calcium 9.0 (8.4-10.2) mg/dl Total Bilirubin 0.5 (0.2-1.0) mg/dL AST 22 (10-42) IU/L ALT 15 (10-60) IU/L Alkaline Phosphatase 82 (42-121) IU/L Troponin I < 0.02 (0.00-0.02) ng/ml Total Protein 6.8 (6.7-8.2) g/dl Albumin 3.9 (3.2-5.5) g/dl Globulin 2.9 Albumin/Globulin Ratio 1.34 Meds: Medications Discontinued Medications Generic Name Dose Route Start Last Admin Trade Name Fabienq PRN Reason Stop Dose Admin Albuterol/Ipratropium 3 ml 02/13/19 22:45 02/13/19 22:54 Duoneb 3.0-0.5 Mg/3 Ml NEB 02/13/19 22:46 3 ml ONETIME ONE Administration Methylprednisolone Sodium Succinate 125 mg 02/13/19 22:45 02/13/19 22:54 Solu-Medrol IVPUSH 02/13/19 22:46 125 mg ONETIME ONE Administration - Re-Assessments/Exams Free Text/Narrative Re-Assessment/Exam: 02/13/19 23:[address] Stevens who kindly admitted pt. Departure - Departure Time of Disposition: 00:00 Disposition: Admitted As Inpatient 65 Condition: Fair Clinical Impression: Acute exacerbation of chronic obstructive pulmonary disease (COPD) - Discharge Information Forms: ED Department Discharge - My Orders Last 24 Hours: My Active Orders 02/13/19 22:44 EKG Documentation Completion [RC] STAT 02/13/19 22:45 RT Aerosol Therapy [RC] ASDIRECTED - Assessment/Plan Last 24 Hours: My Active Orders 02/13/19 22:44 EKG Documentation Completion [RC] STAT 02/13/19 22:45 RT Aerosol Therapy [RC] ASDIRECTED
[2019-02-13 23:19] LABS: ANION GAP 14.7; CHLORIDE,CL 99 mmol/L (101-111); SODIUM,NA 134 mmol/L (135-145)
--- NOTE | 2019-02-14 00:37 | PCM.HP ---
H&P History of Present Illness - General Date of Service: 02/14/19 Source of Information: Patient, Family, Old Records History Limitations: Reports: No Limitations - History of Present Illness Initial Comments - Free Text/Narative: This is a 58 Y/O Male with past medical history of Hypertension, Diabetes, current smoker ( 7-10 cigs/day) has been smoking for 40 years, COPD came to ED with complain of Increased shortness of breath, Cough with yellow sputum for last 2-3 days and getting progressively worse. He took Nebs treatment at home without any improvement, In ED he got solumedrol and Neb treatment but still very tachypneic and wheezy, admitted for COPD exacerbation Onset of Symptoms: Reports: Gradual Duration of Symptoms: Reports: Day(s): Severity: Moderate Associated Symptoms: Reports: cough w sputum, Shortness of Breath. Denies: Fever/Chills - Related Data Allergies/Adverse Reactions: Allergies Allergy/AdvReac Type Severity Reaction Status Date / Time No Known Allergies Allergy Verified 02/13/19 22:59 Home Medications: Home Meds Simvastatin 40 mg PO BEDTIME 08/25/14 [History] glyBURIDE [Glyburide] 10 mg PO BID 08/25/14 [History] metFORMIN [Glucophage] 1,000 mg PO BID 08/25/14 [History] Albuterol Sulfate [Albuterol Sulfate HFA] 2 puff INH Q6H PRN 12/23/14 [History] Aspirin [[place] Aspirin EC] 81 mg PO DAILY 12/23/14 [History] Vitamin E 1,000 unit PO BEDTIME 01/17/18 [History] traZODone HCl [Trazodone HCl] 50 mg PO BEDTIME 10/25/18 [History] DULoxetine [Cymbalta] 30 mg PO DAILY 02/13/19 [History] Past Medical History HEENT History: Reports: Cataract, Impaired Vision Cardiovascular History: Reports: High Cholesterol, SOB on Exertion Respiratory History: Reports: COPD, SOB Gastrointestinal History: Reports: Other (See Below) Musculoskeletal History: Reports: Arthritis, Back Pain, Chronic, Osteoarthritis Neurological History: Reports: Neuropathy, Peripheral Psychiatric History: Reports: None Endocrine/Metabolic History: Reports: Diabetes, Type II Hematologic History: Reports: None Immunologic History: Reports: None Oncologic (Cancer) History: Reports: None - Infectious Disease History Infectious Disease History: Reports: Chicken Pox, Measles - Past Surgical History HEENT Surgical History: Reports: Cataract Surgery, Oral Surgery Musculoskeletal Surgical History: Reports: Arthroscopic Knee Social & Family History - Family History Family Medical History: Noncontributory Other Respiratory Family Hisory: father from lung cancer Endocrine/Metabolic: Reports: Diabetes, type II Other Endocrine/Metabolic Family History: mother has DM and possibley hypercholesterolemia - Tobacco Use Smoking Status *Q: Current Every Day Smoker Years of Tobacco use: 45 Packs/Tins Daily: 8 - Caffeine Use Caffeine Use: Reports: Coffee - Alcohol Use Date of Last Drink: 02/06/19 - Recreational Drug Use Recreational Drug Use: No - Living Situation & Occupation Living situation: Reports: H&P Review of Systems - Review of Systems: Review Of Systems: See Below General: Reports: Weakness, Other (shortness of breath). Denies: Fever, Chills HEENT: Denies: Headaches, Sinus Congestion, Sore Throat, Visual Changes Pulmonary: Reports: Shortness of Breath, Wheezing, Cough, Sputum Cardiovascular: Reports: Dyspnea on Exertion. Denies: Chest Pain, Lightheadedness, Blood Pressure Problem Gastrointestinal: Denies: Abdominal Pain, Constipation, Diarrhea, Difficulty Swallowing, Hematochezia, Nausea, Vomiting Genitourinary: Denies: Dysuria, Burning, Hematuria, Flank Pain Musculoskeletal: Denies: Neck Pain, Shoulder Pain, Muscle Pain Skin: Denies: Cyanosis, Jaundice, Bruising, Pruritis, Rash Psychiatric: Denies: Confusion, Anxiety Neurological: Denies: Confusion, Dizziness, Tingling, Tremors Hematologic/Lymphatic: Reports: No Symptoms Immunologic: Reports: No Symptoms Exam - Exam Exam: See Below - Vital Signs Vital Signs: Last Vital Signs Temp 37.8 C 02/14/19 00:24 Pulse 107 H 02/14/19 00:24 Resp 22 H 02/14/19 00:24 BP 132/62 02/14/19 00:24 Pulse Ox 91 L 02/14/19 00:24 Weight: 78.925 kg - Exam Quality Assessment: DVT Prophylaxis. No: Supplemental Oxygen, Urinary Catheter General: Alert, Oriented, Cooperative HEENT: Conjunctiva Clear, Hearing Intact, Mucosa Moist & [place], Pupils Equal, Pupils Reactive Neck: Supple. No: Lymphadenopathy, JVD, Thyromegaly Lungs: Normal Respiratory Effort, Decreased Breath Sounds, Crackles, Wheezing Cardiovascular: Regular Rate, Regular Rhythm, Normal S1, Normal S2, Systolic Murmur GI/Abdominal Exam: Normal Bowel Sounds, Soft, Non-Tender. No: Distended, Rigid , Rebound, Tender (Male) Exam: Deferred Rectal (Males) Exam: Deferred Back Exam: Normal Inspection, Full Range of Motion Extremities: Normal Inspection, No Pedal Edema Skin: Warm, Dry, Intact Neurological: Cranial Nerves Intact Neuro Extensive - Mental Status: Alert, Oriented x3, Normal Mood/Affect, Normal Cognition, Memory Intact Neuro Extensive - Motor, Sensory, Reflexes: CN II-XII Intact, Normal Gait, Normal Reflexes Psychiatric: Alert, Normal Affect, Normal Mood - Patient Data Lab Results Last 24 hrs: Laboratory Results - last 24 hr 02/13/19 02/13/19 02/13/19 Range/Units 22:51 22:51 22:51 WBC 10.0 (5.0-10.0) 10^3/uL RBC 4.65 (4.6-6.2) 10^6/uL Hgb 14.1 D (14.0-18.0) g/dL Hct 41.5 (40.0-54.0) % MCV 89.2 D (80-100) fL MCH 30.3 (27.0-34.0) pg MCHC 34.0 (33.0-35.0) g/dL Plt Count 316 (150-450) 10^3/uL Neut % (Auto) 65.3 (42.2-75.2) % Lymph % (Auto) 18.4 L (20.5-50.1) % [place] % (Auto) 12.4 H (2-8) % Eos % (Auto) 3.5 H (1.0-3.0) % Baso % (Auto) 0.4 (0.0-1.0) % Sodium 134 L (135-145) mmol/L Potassium 3.7 (3.6-5.0) mmol/L Chloride 99 L (101-111) mmol/L Carbon Dioxide 24.0 (21.0-31.0) mmol/L Anion Gap 14.7 BUN 18 (7-18) mg/dL Creatinine 0.9 (0.6-1.3) mg/dL Est Cr Clr Drug Dosing 79.75 mL/min Estimated GFR (MDRD) > 60 BUN/Creatinine Ratio 20.00 Glucose 302 H (74-105) mg/dL Lactic Acid 2.1 (0.5-2.2) mmol/L Calcium 9.0 (8.4-10.2) mg/dl Total Bilirubin 0.5 (0.2-1.0) mg/dL AST 22 (10-42) IU/L ALT 15 (10-60) IU/L Alkaline Phosphatase 82 (42-121) IU/L Troponin I < 0.02 (0.00-0.02) ng/ml Total Protein 6.8 (6.7-8.2) g/dl Albumin 3.9 (3.2-5.5) g/dl Globulin 2.9 Albumin/Globulin Ratio 1.34 Result Diagrams: 02/13/19 22:51 02/13/19 22:51 - Problem List (1) COPD exacerbation SNOMED Code(s): 620830452 ICD Code: J44.1 - CHRONIC OBSTRUCTIVE PULMONARY DISEASE W (ACUTE) EXACERBATION Status: Acute Current Visit: No Problem List Initiated/Reviewed/Updated: Yes Orders Last 24hrs: Active Orders 24 hr Category Date Time Status RT Aerosol Therapy [RC] ASDIRECTED Care 02/13/19 22:45 Active Assessment/Plan Comment:: This is a 58 Y/O Male with past medical history of Hypertension, Diabetes, current smoker ( 7-10 cigs/day) has been smoking for 40 years, COPD came to ED with complain of Increased shortness of breath, Cough with yellow sputum for last 2-3 days and getting progressively worse. He took Nebs treatment at home without any improvement, In ED he got solumedrol and Neb treatment but still very tachypneic and wheezy, admitted for COPD exacerbation Impression and Plan: 1. Increased shortness of breath with cough and sputum production: The pt with current smoking status, and known COPD it is COPD Eacerbation -Will start Solumedrol 40 mg IV q6 hrs -Will start Duenebs q6 hrs -Will start Albuterol nebs as needed -Encourage use of Incentive spirometer and Flutter Valve -Will keep 02 sat >90 -Will start Zosyn 3.375 mg IV q6 hrs 2. Hypertension: BP is acceptable and will start amlodipine if SBP >140 mmHg 3. Diabetes II: Non insulin dependent, will continue Glyburide and Metformin -Check BS 4 times a day and cover with regular insulin if needed 4. Dyslipidemia: Continue Simvastatin 5. GI and DVT prophylaxis: Continue Protonix and Heparin 6. Code status: Discussed with Pt and wants to be: Full Code
[2019-02-14] MEDS ORDERED: Docusate Sodium 100 MG Cap PO PRN (00:51)
[2019-02-14] MEDS ORDERED: Acetaminophen 325 MG Tab PO PRN (00:51)
[2019-02-14] MEDS ORDERED: Albuterol 0.083% 2.5 MG/3 ML Neb Soln NEB PRN (01:05)
[2019-02-14] MEDS ORDERED: Piperacillin/Tazobactam 3.375 GM in Sodium Chloride 0.9% 100 ML IV ONE (01:15)
[2019-02-14] MEDS: Heparin Sodium 5,000 Units/ML Vial SUBCUT SCH ×3 (01:52→17:26)
[2019-02-14] MEDS: Albuterol/Ipratropium 3.0-0.5 MG/3 ML Neb Soln NEB SCH ×5 (03:12→18:35)
[2019-02-14] MEDS: Pantoprazole 40 MG Tab.CR PO SCH (05:57)
[2019-02-14] MEDS ORDERED: Piperacillin/Tazobactam 3.375 GM in Sodium Chloride 0.9% 100 ML IV SCH (07:00)
[2019-02-14] MEDS: Piperacillin/Tazobactam 3.375 GM in Sodium Chloride 0.9% 100 ML IV SCH ×3 (07:37→19:58)
[2019-02-14] MEDS: Insulin Lispro 100 Units/ML 3 ML Vial SUBCUT SCH ×4 (08:26→21:05)
[2019-02-14] MEDS: DULoxetine 30 MG Cap PO SCH (09:01)
[2019-02-14] MEDS: Aspirin 81 MG Tab.EC PO SCH (09:02)
[2019-02-14] MEDS: glyBURIDE 5 MG Tab PO SCH ×2 (09:02→21:03)
[2019-02-14] MEDS: metFORMIN 500 MG Tab PO SCH ×2 (09:02→21:07)
[2019-02-14] MEDS: Nicotine 14 MG/24 Hr Patch TRDERM SCH (09:03)
[2019-02-14] MEDS: methylPREDNISolone Sodium Succinate 40 MG/1 ML SDV IVPUSH SCH ×3 (09:04→21:26)
[2019-02-14] MEDS: Sodium Chloride 0.9% 10 ML Syringe FLUSH PRN ×3 (14:15→21:30)
[2019-02-14] MEDS ORDERED: Simvastatin 40 MG Tab PO SCH (21:00)
[2019-02-14] MEDS ORDERED: traZODone 50 MG Tab PO SCH (21:00)
[2019-02-14] MEDS ORDERED: Vitamin E (dl-alpha-tocopherol acetate) 400 Unit Cap PO SCH (21:00)
[2019-02-14] MEDS ORDERED: Insulin Lispro 100 Units/ML 3 ML Vial SUBCUT ONE ×2 (21:06→21:38)
[2019-02-14] MEDS ORDERED: Albuterol/Ipratropium 3.0-0.5 MG/3 ML Neb Soln INH ONE (22:34)
[2019-02-14] MEDS ORDERED: Heparin Sodium 5,000 Units/ML Vial SUBCUT ONE (22:35)
[2019-02-15] MEDS ORDERED: methylPREDNISolone Sodium Succinate 40 MG/1 ML SDV IV ONE (02:27)
[2019-02-15] MEDS ORDERED: Albuterol/Ipratropium 3.0-0.5 MG/3 ML Neb Soln INH ONE (02:30)
[2019-02-15] MEDS ORDERED: Pantoprazole 40 MG Tab.CR PO ONE (05:15)
[2019-02-15 06:54] LABS: ANION GAP 16.1; CHLORIDE,CL 101 mmol/L (101-111); SODIUM,NA 136 mmol/L (135-145)
[2019-02-15] MEDS: Albuterol/Ipratropium 3.0-0.5 MG/3 ML Neb Soln NEB SCH ×4 (07:12→11:36)
[2019-02-15] MEDS: Piperacillin/Tazobactam 3.375 GM in Sodium Chloride 0.9% 100 ML IV SCH ×2 (07:27→08:03)
[2019-02-15] MEDS: Heparin Sodium 5,000 Units/ML Vial SUBCUT SCH ×2 (07:27→09:15)
[2019-02-15] MEDS ORDERED: Piperacillin/Tazobactam 3.375 GM in Sodium Chloride 0.9% 100 ML IV ONE (08:00)
[2019-02-15] MEDS: Pantoprazole 40 MG Tab.CR PO SCH (08:01)
[2019-02-15] MEDS: methylPREDNISolone Sodium Succinate 40 MG/1 ML SDV IVPUSH SCH ×2 (08:01→09:15)
[2019-02-15] MEDS: Sodium Chloride 0.9% 10 ML Syringe FLUSH PRN (08:03)
[2019-02-15] MEDS: Insulin Lispro 100 Units/ML 3 ML Vial SUBCUT SCH ×2 (08:19→11:37)
[2019-02-15 08:20] VITALS: BP 111/69
[2019-02-15] MEDS ORDERED: Heparin Sodium 5,000 Units/ML Vial SUBCUT ONE (08:25)
--- NOTE | 2019-02-15 08:37 | PCM.DCSUM1 ---
Discharge Summary - Hospital Course Free Text/Narrative:: This is a 58 Y/O Male with past medical history of Hypertension, Diabetes, current smoker ( 7-10 cigs/day) has been smoking for 40 years, COPD came to ED with complain of Increased shortness of breath, Cough with yellow sputum for last 2-3 days and getting progressively worse. He took Nebs treatment at home without any improvement, In ED he got solumedrol and Neb treatment but still very tachypneic and wheezy, admitted for COPD exacerbation. In hospital he was treated with IV sloumedrol and IV zosyn and Duonebs. He is doing well now and has no more significant wheezing . He will go home on tapering Prednisone and oral Augmentin for 10 days course - Discharge Data Discharge Date: 02/15/19 Discharge Disposition: Home, Self-Care 01 Condition: Good - Discharge Diagnosis/Problem(s) (1) COPD exacerbation SNOMED Code(s): 834743425 ICD Code: J44.1 - CHRONIC OBSTRUCTIVE PULMONARY DISEASE W (ACUTE) EXACERBATION Status: Acute Current Visit: No - Patient Summary/Data Hospital Course: This is a 58 Y/O Male with past medical history of Hypertension, Diabetes, current smoker ( 7-10 cigs/day) has been smoking for 40 years, COPD came to ED with complain of Increased shortness of breath, Cough with yellow sputum for last 2-3 days and getting progressively worse. He took Nebs treatment at home without any improvement, In ED he got solumedrol and Neb treatment but still very tachypneic and wheezy, admitted for COPD exacerbation. In hospital he was treated with IV sloumedrol and IV zosyn and Duonebs. He is doing well now and has no more significant wheezing . He will go home on tapering Prednisone and oral Augmentin for 10 days course - Patient Instructions Diet: Diabetic Diet Activity: As Tolerated Driving: May Drive Today Showering/Bathing: May Shower Other/Special Instructions: This is a 58 Y/O Male with past medical history of Hypertension, Diabetes, current smoker ( 7-10 cigs/day) has been smoking for 40 years, COPD came to ED with complain of Increased shortness of breath, Cough with yellow sputum for last 2-3 days and getting progressively worse. He took Nebs treatment at home without any improvement, In ED he got solumedrol and Neb treatment but still very tachypneic and wheezy, admitted for COPD exacerbation. In hospital he was treated with IV sloumedrol and IV zosyn and Duonebs. He is doing well now and has no more significant wheezing . He will go home on tapering Prednisone and oral Augmentin for 10 days course. He is advised to follow with PMD in a week. Pt was advised to quit smoking - Discharge Plan Prescriptions/Med Rec: Amoxicillin/Clavulanate K [Augmentin 875-125 MG] 1 tab PO DAILY #10 tablet predniSONE [Prednisone] 10 mg PO DAILY #35 tablet Home Medications: Home Meds Simvastatin 40 mg PO BEDTIME 08/25/14 [History] glyBURIDE [Glyburide] 10 mg PO BID 08/25/14 [History] metFORMIN [Glucophage] 1,000 mg PO BID 08/25/14 [History] Albuterol Sulfate [Albuterol Sulfate HFA] 2 puff INH Q6H PRN 12/23/14 [History] Aspirin [[place] Aspirin EC] 81 mg PO DAILY 12/23/14 [History] Vitamin E 1,000 unit PO BEDTIME 01/17/18 [History] traZODone HCl [Trazodone HCl] 50 mg PO BEDTIME 10/25/18 [History] DULoxetine [Cymbalta] 30 mg PO DAILY 02/13/19 [History] Amoxicillin/Clavulanate K [Augmentin 875-125 MG] 1 tab PO DAILY #10 tablet 02/15 [Rx] predniSONE [Prednisone] 10 mg PO DAILY #35 tablet 02/15/19 [Rx] Patient Handouts: Chronic Obstructive Pulmonary Disease Exacerbation, Easy-to- Read, Amoxicillin; Clavulanic Acid tablets, Prednisone tablets Referrals: PCP,Unobtain [Ordering Only Provider] - - Discharge Summary/Plan Comment DC Time >30 min.: Yes - General Info Date of Service: 02/15/19 Subjective Update: He was seen today in room, doing well, No shortness of breath, appetite is good , slept well and will be going home Functional Status: Reports: Pain Controlled, Tolerating Diet, Ambulating, Urinating - Review of Systems General: Reports: Appetite (good). Denies: Fever, Weakness, Chills HEENT: Denies: Dysphasia, Headaches, Sinus Congestion, Sore Throat, Visual Changes Pulmonary: Reports: Cough, Wheezing (mild expiratory). Denies: Shortness of Breath Cardiovascular: Denies: Chest Pain, Dyspnea on Exertion, Lightheadedness Gastrointestinal: Denies: Abdominal Pain, Diarrhea, Difficulty Swallowing, Nausea, Vomiting Genitourinary: Denies: Dysuria, Frequency, Burning, Flank Pain Musculoskeletal: Denies: Neck Pain, Leg Pain, Joint Swelling Skin: Denies: Jaundice, Bruising, Pruritis, Rash Neurological: Denies: Dizziness, Headache, Tremors, Difficulty Walking Psychiatric: Denies: Confusion, Anxiety - Patient Data Vitals - Most Recent: Last Vital Signs Temp 36.8 C 02/15/19 08:19 Pulse 91 02/15/19 08:19 Resp 20 02/15/19 08:19 BP 111/69 02/15/19 08:19 Pulse Ox 92 L 02/15/19 08:19 Weight - Most Recent: 78.925 kg I&O - Last 24 hours: Intake & Output 02/14/19 02/15/19 02/15/19 22:59 06:59 14:59 Intake Total 781 Output Total 500 Balance 281 Lab Results - Last 24 hrs: Laboratory Results - last 24 hr 02/14/19 02/14/19 02/14/19 Range/Units 11:18 16:41 20:50 WBC (5.0-10.0) 10^3/uL RBC (4.6-6.2) 10^6/uL Hgb (14.0-18.0) g/dL Hct (40.0-54.0) % MCV (80-100) fL MCH (27.0-34.0) pg MCHC (33.0-35.0) g/dL Plt Count (150-450) 10^3/uL Neut % (Auto) (42.2-75.2) % Lymph % (Auto) (20.5-50.1) % [place] % (Auto) (2-8) % Eos % (Auto) (1.0-3.0) % Baso % (Auto) (0.0-1.0) % Sodium (135-145) mmol/L Potassium (3.6-5.0) mmol/L Chloride (101-111) mmol/L Carbon Dioxide (21.0-31.0) mmol/L Anion Gap BUN (7-18) mg/dL Creatinine (0.6-1.3) mg/dL Est Cr Clr Drug Dosing mL/min Estimated GFR (MDRD) Glucose (74-105) mg/dL POC Glucose 206 H 187 H 402 H* (70-105) mg/dl Calcium (8.4-10.2) mg/dl 02/15/19 02/15/19 02/15/19 Range/Units 06:28 06:28 07:57 WBC 21.3 H (5.0-10.0) 10^3/uL RBC 5.01 (4.6-6.2) 10^6/uL Hgb 14.8 (14.0-18.0) g/dL Hct 44.3 (40.0-54.0) % MCV 88.4 (80-100) fL MCH 29.5 (27.0-34.0) pg MCHC 33.4 (33.0-35.0) g/dL Plt Count 337 (150-450) 10^3/uL Neut % (Auto) 91.3 H (42.2-75.2) % Lymph % (Auto) 4.8 L (20.5-50.1) % [place] % (Auto) 3.9 (2-8) % Eos % (Auto) 0.0 L (1.0-3.0) % Baso % (Auto) 0.0 (0.0-1.0) % Sodium 136 (135-145) mmol/L Potassium 4.1 (3.6-5.0) mmol/L Chloride 101 (101-111) mmol/L Carbon Dioxide 23.0 (21.0-31.0) mmol/L Anion Gap 16.1 BUN 17 (7-18) mg/dL Creatinine 0.8 (0.6-1.3) mg/dL Est Cr Clr Drug Dosing 89.72 mL/min Estimated GFR (MDRD) > 60 Glucose 214 H (74-105) mg/dL POC Glucose 215 H (70-105) mg/dl Calcium 8.9 (8.4-10.2) mg/dl Med Orders - Current: Current Medications Acetaminophen (Tylenol) 650 mg PO Q4H PRN PRN Reason: Pain (mild 1-3 )/fever Albuterol (Proventil Neb Soln) 2.5 mg NEB Q4HRRT PRN PRN Reason: Shortness of Breath Albuterol/Ipratropium (Duoneb 3.0-0.5 Mg/3 Ml) 3 ml NEB Q4HRRT [facility] Last Admin: 02/15/19 07:27 Dose: Not Given Aspirin (Halfprin) 81 mg PO DAILY [facility] Last Admin: 02/14/19 09:02 Dose: 81 mg Docusate Sodium (Colace) 100 mg PO DAILY PRN PRN Reason: Constipation Duloxetine HCl (Cymbalta) 30 mg PO DAILY [facility] Last Admin: 02/14/19 09:01 Dose: 30 mg Glyburide (Micronase) 10 mg PO BID [facility] Last Admin: 02/14/19 21:03 Dose: 10 mg Heparin Sodium (Porcine) (Heparin Sodium) 5,000 units SUBCUT Q8H [facility] Last Admin: 02/15/19 07:27 Dose: Not Given Piperacillin Sod/Tazobactam (Sod 3.375 gm/ Sodium Chloride) 100 mls @ 200 mls/ hr IV Q6H [facility] Last Admin: 02/15/19 08:03 Dose: 200 mls/hr Insulin Human Lispro (Humalog) 0 unit SUBCUT ACBED [facility]; Protocol Last Admin: 02/15/19 08:19 Dose: 4 units Metformin HCl (Glucophage) 1,000 mg PO BID [facility] Last Admin: 02/14/19 21:07 Dose: 1,000 mg Methylprednisolone Sodium Succinate (Solu-Medrol) 40 mg IVPUSH Q6H [facility] Last Admin: 02/15/19 08:01 Dose: Not Given Nicotine (Habitrol) 14 mg TRDERM DAILY [facility] Last Admin: 02/14/19 09:03 Dose: 14 mg Pantoprazole Sodium (Protonix) 40 mg PO ACBREAKFAST [facility] Last Admin: 02/15/19 08:01 Dose: Not Given Simvastatin (Zocor) 40 mg PO BEDTIME [facility] Last Admin: 02/14/19 21:07 Dose: 40 mg Sodium Chloride (Saline Flush) 10 ml FLUSH QID PRN PRN Reason: Keep Vein Open Last Admin: 02/15/19 08:03 Dose: 10 ml Trazodone HCl (Trazodone) 50 mg PO BEDTIME [facility] Last Admin: 02/14/19 21:03 Dose: 50 mg Vitamin E (Vitamin E) 800 units PO BEDTIME [facility] Last Admin: 02/14/19 21:05 Dose: 800 units Discontinued Medications Albuterol/Ipratropium (Duoneb 3.0-0.5 Mg/3 Ml) 3 ml NEB ONETIME ONE Stop: 02/13/19 22:46 Last Admin: 02/13/19 22:54 Dose: 3 ml Piperacillin Sod/Tazobactam (Sod 3.375 gm/ Sodium Chloride) 100 mls @ 200 mls/ hr IV ONETIME ONE Stop: 02/14/19 01:44 Last Admin: 02/14/19 01:51 Dose: 200 mls/hr Piperacillin Sod/Tazobactam (Sod 3.375 gm/ Sodium Chloride) 100 mls @ 200 mls/ hr IV Q6H [facility] Insulin Human Lispro (Humalog) 0 unit SUBCUT ONETIME ONE Stop: 02/14/19 21:39 Last Admin: 02/14/19 21:53 Dose: 12 units Methylprednisolone Sodium Succinate (Solu-Medrol) 125 mg IVPUSH ONETIME ONE Stop: 02/13/19 22:46 Last Admin: 02/13/19 22:54 Dose: 125 mg - Exam Quality Assessment: Reports: DVT Prophylaxis. Denies: Supplemental Oxygen, Urine Catheter General: Reports: Alert, Oriented, Cooperative, No Acute Distress HEENT: Reports: Pupils Equal, Pupils Reactive, EOMI Neck: Reports: Supple, No JVD, No Thyromegaly Lungs: Reports: Clear to Auscultation, Normal Respiratory Effort, Wheezing ( mild expiratory) GI/Abdominal Exam: Normal Bowel Sounds. No: Rigid, Rebound, Tender (Male) Exam: Deferred Rectal (Males) Exam: Deferred Extremities: Normal Inspection, Normal Range of Motion, No Pedal Edema Skin: Reports: Warm, Dry, Intact Neurological: Reports: No New Focal Deficit Psy/Mental Status: Reports: Alert, Normal Affect, Normal Mood
[2019-02-15] MEDS: glyBURIDE 5 MG Tab PO SCH (09:13)
[2019-02-15] MEDS: Aspirin 81 MG Tab.EC PO SCH (09:13)
[2019-02-15] MEDS: DULoxetine 30 MG Cap PO SCH (09:13)
[2019-02-15] MEDS: Nicotine 14 MG/24 Hr Patch TRDERM SCH (09:15)
[2019-02-15] MEDS: metFORMIN 500 MG Tab PO SCH (09:16)
== END 2019-02-15 09:40 | disposition home or self-care (01) | DRG 192 ==
LOC: DL.ED 22:34 → DL.MS 02-14 00:10
PROVIDERS: ADMIT Internal Medicine Nephrology; ATTEND Internal Medicine Nephrology
DX: J44.1 Chronic obstructive pulmonary disease with (acute) exacerbation (principal); I10 Essential (primary) hypertension; F17.210 Nicotine dependence, cigarettes, uncomplicated; H54.7 Unspecified visual loss; E78.00 Pure hypercholesterolemia, unspecified; M19.90 Unspecified osteoarthritis, unspecified site; G89.29 Other chronic pain; E11.42 Type 2 diabetes mellitus with diabetic polyneuropathy; Z79.82 Long term (current) use of aspirin; Z79.899 Other long term (current) drug therapy; Z79.84 Long term (current) use of oral hypoglycemic drugs; Z98.49 Cataract extraction status, unspecified eye
CPT/HCPCS: 36415; 71046; 80048; 80053; 82962; 83605; 84484; 85025; 93005; 94640; 94667; 96374; 99285-25; A9270-GY; J1644; J1815; J2543; J2920; J2930; J7050; J7620-GY

== ENCOUNTER 2019-06-16 06:50 | Day surgery (SDC) | payer SELFPAY ==
[~2019-06-16 06:50] MED LIST: Midazolam 1 MG/ML 2 ML SDV ONE; fentaNYL 100 MCG/2 ML SDV ONE
[2019-06-16] MEDS ORDERED: fentaNYL 100 MCG/2 ML SDV IV ONE ×3 (06:51→07:43)
[2019-06-16] MEDS ORDERED: Midazolam 1 MG/ML 2 ML SDV IV ONE ×7 (06:51→08:03)
[2019-06-16] MEDS ORDERED: Dextrose 5%-0.45% NaCl 1,000 ML IV SCH (07:30)
--- NOTE | 2019-06-16 09:17 | OR ---
DATE: 06/16/2019 PROCEDURE: Total colonoscopy and cold snare polypectomy. INSTRUMENT USED: PCF-H190DL Olympus video colonoscope. PREMEDICATIONS: Fentanyl 100 mcg intravenous, Versed 4 mg intravenous, nasal O2 cannula. The procedure was done under pulse oximetry, BP recording, and ekg monitor. INDICATION: The patient with Hemoccult positive stools. Colonoscopic examination is done for detection of any polypoid lesions and removal, endoscopic hemostasis therapy if needed. DESCRIPTION OF PROCEDURE: Initial rectal exam was unremarkable. Rigid anoscopy showed small internal hemorrhoids without bleeding from them. The colonoscope was passed with ease. Diffuse pigmentation of melanosis coli was noted in the entire colon. The scope was passed with ease up to the ileocecal area. Photographs were taken of the normal-appearing cecum identified by landmarks of appendiceal orifice and double-bulged ileocecal folds. No bleeding was noted from any of the visualized areas at the commencement of the examination. The bowel preparation was found to be adequate, [place] scale 2 in all the regions. In the proximal transverse colon, diminutive benign-appearing polyp was noted, photographs were taken, cold snare polypectomy was done. The tissue was retrieved and sent for histopathology. No stricture. No vascular ectasia. No large isolated ulcerations seen. No evidence of diffuse inflammatory bowel disease in the form of friability, contact bleeding, or ulcerations. Probing the proximal sides of folds and flexures using adequate distention and clearing up the stool material, withdrawal of the scope was made, cecum to rectum time over 6 minutes. No bleeding was noted from any of the visualized areas at the completion of examination. IMPRESSION: 1. Internal hemorrhoids. 2. Melanosis coli. 3. Diminutive colonic polyp. The patient tolerated the procedure well. [facility] /[id number]
[2019-06-16 10:23] VITALS: BP 104/66
== END 2019-06-16 10:16 | disposition home or self-care (01) ==
LOC: DL.ENDO 06:50
PROVIDERS: ATTEND Internal Medicine Gastroenterology
DX: D12.3 Benign neoplasm of transverse colon (principal); K64.8 Other hemorrhoids; K63.89 Other specified diseases of intestine; E11.9 Type 2 diabetes mellitus without complications; E78.5 Hyperlipidemia, unspecified; E66.09 Other obesity due to excess calories; J44.9 Chronic obstructive pulmonary disease, unspecified; F17.210 Nicotine dependence, cigarettes, uncomplicated; Z79.82 Long term (current) use of aspirin
CPT/HCPCS: 45385; J2250; J3010; J7042

== ENCOUNTER 2019-12-13 19:58 | Observation (INO) | payer OTHER ==
[2019-12-13] MEDS ORDERED: Albuterol/Ipratropium 3.0-0.5 MG/3 ML Neb Soln NEB ONE (21:21)
--- NOTE | 2019-12-13 21:27 | EDM.PDOC ---
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: xray - Related Data Allergies Allergy/AdvReac Type Severity Reaction Status Date / Time No Known Allergies Allergy Verified 12/13/19 21:19 Home Meds: Home Meds Simvastatin 20 mg PO BEDTIME 08/25/14 [History] glyBURIDE [Glyburide] 5 mg PO BID 08/25/14 [History] metFORMIN [Glucophage] 1,000 mg PO BID 08/25/14 [History] Albuterol Sulfate [Albuterol Sulfate HFA] 2 puff INH Q6H PRN 12/23/14 [History] Aspirin [[place] Aspirin EC] 81 mg PO DAILY 12/23/14 [History] Vitamin E 180 unit PO BEDTIME 01/17/18 [History] traZODone HCl [Trazodone HCl] 50 mg PO BEDTIME 10/25/18 [History] DULoxetine [Cymbalta] 30 mg PO DAILY 12/13/19 [History] Past Medical History HEENT History: Reports: Cataract, Impaired Vision Other HEENT History: UPPER DENTURES Cardiovascular History: Reports: High Cholesterol, SOB on Exertion Respiratory History: Reports: Bronchitis, Recurrent, COPD, SOB Gastrointestinal History: Reports: None Genitourinary History: Reports: None Musculoskeletal History: Reports: Arthritis, Back Pain, Chronic, Osteoarthritis Neurological History: Reports: Neuropathy, Peripheral Psychiatric History: Reports: None Endocrine/Metabolic History: Reports: Diabetes, Type II Hematologic History: Reports: None Immunologic History: Reports: None Oncologic (Cancer) History: Reports: None Dermatologic History: Reports: None - Infectious Disease History Infectious Disease History: Reports: Chicken Pox, Measles - Past Surgical History Head Surgeries/Procedures: Reports: None HEENT Surgical History: Reports: Cataract Surgery, Oral Surgery Cardiovascular Surgical History: Reports: None Respiratory Surgical History: Reports: None Male Surgical History: Reports: None Endocrine Surgical History: Reports: None Musculoskeletal Surgical History: Reports: Arthroscopic Knee Social & Family History - Family History Family Medical History: Noncontributory Other Respiratory Family Hisory: father from lung cancer Endocrine/Metabolic: Reports: Diabetes, type II Other Endocrine/Metabolic Family History: mother has DM and possibley hypercholesterolemia - Tobacco Use Smoking Status *Q: Current Every Day Smoker Years of Tobacco use: 45 Packs/Tins Daily: 0.7 Used Tobacco, but Quit: No - Caffeine Use Caffeine Use: Reports: Coffee, Soda Other Caffeine Use: 24 cups daily - Recreational Drug Use Recreational Drug Use: No - Living Situation & Occupation Living situation: Reports: ED ROS GENERAL - Review of Systems Review Of Systems: See Below Constitutional: Reports: Fever, Chills, Malaise, Decreased Appetite HEENT: Reports: No Symptoms Respiratory: Reports: Shortness of Breath, Cough Cardiovascular: Reports: No Symptoms Endocrine: Reports: No Symptoms GI/Abdominal: Reports: No Symptoms Musculoskeletal: Reports: No Symptoms Skin: Reports: No Symptoms Neurological: Reports: No Symptoms ED EXAM, GENERAL - Physical Exam Exam: See Below Exam Limited By: No Limitations General Appearance: Alert, Mild Distress Eye Exam: Bilateral Eye: EOMI Nose: Normal Inspection Throat/Mouth: Normal Oropharynx, Normal Voice Head: Atraumatic, Normocephalic Neck: Normal Inspection Respiratory/Chest: No Respiratory Distress, Decreased Breath Sounds Cardiovascular: Normal Peripheral Pulses, Regular Rate, Rhythm GI/Abdominal: Normal Bowel Sounds Back Exam: Full Range of Motion Extremities: Normal Inspection, Normal Range of Motion Neurological: Alert, Oriented, Normal Cognition, No Motor/Sensory Deficits Psychiatric: Normal Affect, Normal Mood Skin Exam: Warm, Dry, Intact, Normal Color, No Rash Course - Vital Signs Last Recorded V/S: Last Vital Signs Temp 99.1 F 12/13/19 23:34 Pulse 97 12/13/19 23:34 Resp 22 H 12/13/19 23:34 BP 131/71 12/13/19 23:34 Pulse Ox 90 L 12/13/19 23:34 - Orders/Labs/Meds Orders: Active Orders 24 hr Category Date Time Status CULTURE BLOOD [BC] Stat Lab 12/13/19 21:00 Received Blood Culture x2 Reflex Set [OM.PC] Stat Oth 12/13/19 21:25 Ordered Medication Orders Albuterol (Proventil Neb Soln) 2.5 mg NEB Q2H PRN PRN Reason: shortness of breath/wheezing Albuterol/Ipratropium (Duoneb 3.0-0.5 Mg/3 Ml) 3 ml NEB Q4H PRN PRN Reason: shortness of breath/wheezing Aspirin (Halfprin) 81 mg PO DAILY [facility] Azithromycin (Zithromax) 500 mg PO DAILY [facility] Last Admin: 12/14/19 00:32 Dose: 500 mg Dextrose/Water (Dextrose 50% In Water) 25 ml IVPUSH ASDIRECTED PRN PRN Reason: Hypoglycemia Enoxaparin Sodium (Lovenox) 40 mg SUBCUT DAILY [facility] Glucagon (Glucagen) 1 mg IM ONETIME PRN PRN Reason: Hypoglycemia Ceftriaxone Sodium 2 gm/ (Sodium Chloride) 100 mls @ 200 mls/hr IV Q24H [facility] Last Infusion: 12/14/19 01:10 Dose: 200 mls/hr Admin: 12/14/19 00:31 Dose: 200 mls/hr Ibuprofen (Motrin) 600 mg PO Q6H PRN PRN Reason: Pain Insulin Human Lispro (Humalog) 0 unit SUBCUT ACBED [facility]; Protocol Mometasone Furoate/Formoterol Fumar (Dulera 100-5 Mcg) 2 puff IH ASDIRECTED [facility] Ondansetron HCl (Zofran Odt) 4 mg PO Q6H PRN PRN Reason: nausea, able to take PO Ondansetron HCl (Zofran) 4 mg IVPUSH Q6H PRN PRN Reason: Nausea/Vomiting Prednisone (Prednisone) 40 mg PO WITHBREAKFAST [facility] Senna/Docusate Sodium (Senna Plus) 1 tab PO BEDTIME PRN PRN Reason: Constipation Simvastatin (Zocor) 40 mg PO BEDTIME [facility] Trazodone HCl (Trazodone) 50 mg PO BEDTIME [facility] Labs: Laboratory Tests 12/13/19 12/13/19 12/13/19 Range/Units 21:00 21:00 21:00 WBC 13.5 H (5.0-10.0) 10^3/uL RBC 4.60 (4.6-6.2) 10^6/uL Hgb 13.7 L (14.0-18.0) g/dL Hct 40.9 (40.0-54.0) % MCV 88.9 (80-100) fL MCH 29.8 (27.0-34.0) pg MCHC 33.5 (33.0-35.0) g/dL Plt Count 405 (150-450) 10^3/uL Neut % (Auto) 61.6 (42.2-75.2) % Lymph % (Auto) 22.0 (20.5-50.1) % [place] % (Auto) 8.7 H (2-8) % Eos % (Auto) 7.3 H (1.0-3.0) % Baso % (Auto) 0.4 (0.0-1.0) % Sodium 136 (135-145) mmol/L Potassium 4.1 (3.6-5.0) mmol/L Chloride 102 (101-111) mmol/L Carbon Dioxide 27.0 (21.0-31.0) mmol/L Anion Gap 11.1 BUN 15 (7-18) mg/dL Creatinine 0.8 (0.6-1.3) mg/dL Est Cr Clr Drug Dosing 88.61 mL/min Estimated GFR (MDRD) > 60 BUN/Creatinine Ratio 18.75 Glucose 174 H (74-105) mg/dL Lactic Acid 1.2 (0.5-2.0) mmol/L Calcium 9.1 (8.4-10.2) mg/dl Total Bilirubin 0.4 (0.2-1.0) mg/dL AST 13 (10-42) IU/L ALT 10 (10-60) IU/L Alkaline Phosphatase 81 (42-121) IU/L Troponin I 0.03 H* (0.00-0.02) ng/ml B-Natriuretic Peptide 7 (0-100) pg/ml Total Protein 6.9 (6.7-8.2) g/dl Albumin 3.8 (3.2-5.5) g/dl Globulin 3.1 Albumin/Globulin Ratio 1.23 Meds: Medications Generic Name Dose Route Start Last Admin Trade Name Freq PRN Reason Stop Dose Admin Albuterol 2.5 mg 12/13/19 23:34 Proventil Neb Soln NEB Q2H PRN shortness of breath/wheezing Albuterol/Ipratropium 3 ml 12/13/19 23:34 Duoneb 3.0-0.5 Mg/3 Ml NEB Q4H PRN shortness of breath/wheezing Aspirin 81 mg 12/14/19 09:00 Halfprin PO DAILY [facility] Azithromycin 500 mg 12/13/19 23:45 12/14/19 00:32 Zithromax PO 500 mg DAILY [facility] Administration Dextrose/Water 25 ml 12/13/19 23:34 Dextrose 50% In Water IVPUSH ASDIRECTED PRN Hypoglycemia Enoxaparin Sodium 40 mg 12/14/19 09:00 Lovenox SUBCUT DAILY [facility] Glucagon 1 mg 12/13/19 23:34 Glucagen IM ONETIME PRN Hypoglycemia Ceftriaxone Sodium 2 gm/ 100 mls @ 200 mls/hr 12/13/19 23:45 12/14/19 01:10 Sodium Chloride IV Infused Q24H [facility] Infusion Ibuprofen 600 mg 12/13/19 23:42 Motrin PO Q6H PRN Pain Insulin Human Lispro 0 unit 12/14/19 07:00 Humalog SUBCUT ACBED [facility] Protocol Mometasone Furoate/Formoterol Fumar 2 puff 12/13/19 23:45 Dulera 100-5 Mcg IH ASDIRECTED [facility] Ondansetron HCl 4 mg 12/13/19 23:34 Zofran Odt PO Q6H PRN nausea, able to take PO Ondansetron HCl 4 mg 12/13/19 23:34 Zofran IVPUSH Q6H PRN Nausea/Vomiting Prednisone 40 mg 12/14/19 23:50 Prednisone PO WITHBREAKFAST [facility] Senna/Docusate Sodium 1 tab 12/13/19 23:34 Senna Plus PO BEDTIME PRN Constipation Simvastatin 40 mg 12/14/19 21:00 Zocor PO BEDTIME [facility] Trazodone HCl 50 mg 12/14/19 21:00 Trazodone PO BEDTIME [facility] Discontinued Medications Generic Name Dose Route Start Last Admin Trade Name Freq PRN Reason Stop Dose Admin Albuterol 2.5 mg 12/13/19 22:09 12/13/19 22:12 Proventil Neb Soln NEB 12/13/19 22:10 2.5 mg ONETIME ONE Administration Albuterol/Ipratropium 3 ml 12/13/19 21:21 12/13/19 21:31 Duoneb 3.0-0.5 Mg/3 Ml NEB 12/13/19 21:22 3 ml ONETIME ONE Administration Aspirin 324 mg 12/13/19 22:12 12/13/19 22:26 Aspirin PO 12/13/19 22:13 324 mg ONETIME ONE Administration Methylprednisolone Sodium Succinate 125 mg 12/13/19 22:39 12/13/19 22:46 Solu-Medrol IVPUSH 12/13/19 22:40 125 mg ONETIME ONE Administration - Radiology Interpretation Free Text/Narrative:: [facility] [place] [facility] Final Radiology Report Call: [phone] assistance Online chat: [email or web address] Name: ROBIN WOODSON Age: 59Years M Date: 12/13/2019 SSN: -- : 1960 Study: XR CHEST 2 VIEWS FRONTAL & LAT Requesting Physician: PAPI SARKAR Images: 2 Addl Studies: Provided Clinical History: Contrast: Contrast Medium: Contrast Amount: Contrast Method: CONFIDENTIALITY STATEMENT This report is intended only for use by the referring physician, and only in accordance with law. If you received this in error, call [phone]. Page 1 of 1 PROCEDURE INFORMATION: Exam: XR Chest, 2 Views Exam date and time: 12/13/2019 9:23 PM Age: 59 years old Clinical indication: Shortness of breath TECHNIQUE: Imaging protocol: XR of the chest Views: 2 views. COMPARISON: CR Chest 2V 02/13/2019 11:13 PM FINDINGS: Lungs: Unremarkable. No consolidation. Pleural space: Unremarkable. No pleural effusion. No pneumothorax. Heart/Mediastinum: Unremarkable. No cardiomegaly. Bones/joints: Unremarkable. IMPRESSION: No acute findings. Thank you for allowing us to participate in the care of your patient. Dictated and Authenticated by: Francesco Kelly MD 12/13/2019 9:38 PM Central Time ([place] & [place]) Departure - Departure Time of Disposition: 23:10 Disposition: Refer to Observation Condition: Good Clinical Impression: COPD, Moderate chronic obstructive pulmonary disease, COPD exacerbation, Diabetes mellitus type 2, Tobacco user - Discharge Information *PRESCRIPTION DRUG MONITORING PROGRAM REVIEWED*: No *COPY OF PRESCRIPTION DRUG MONITORING REPORT IN PATIENT ANNEL: No Sepsis Event Note - Evaluation Sepsis Screening Result: No Definite Risk - Focused Exam Vital Signs: Vital Signs Temp Pulse Resp BP Pulse Ox Pulse Ox 12/13/19 22:49 98.5 F 103 H 20 124/75 91 L 12/13/19 21:46 99 12/13/19 21:33 91 L 12/13/19 20:27 97.3 F 109 H 22 H 141/72 H 91 L Date Exam was Performed: 12/14/19 Time Exam was Performed: 04:42 - My Orders Last 24 Hours: My Active Orders 12/13/19 21:00 CULTURE BLOOD [BC] Stat 12/13/19 21:25 Blood Culture x2 Reflex Set [OM.PC] Stat - Assessment/Plan Last 24 Hours: My Active Orders 12/13/19 21:00 CULTURE BLOOD [BC] Stat 12/13/19 21:25 Blood Culture x2 Reflex Set [OM.PC] Stat
[2019-12-13 21:40] LABS: ANION GAP 11.1; CHLORIDE,CL 102 mmol/L (101-111); SODIUM,NA 136 mmol/L (135-145)
[2019-12-13] MEDS ORDERED: Albuterol 0.083% 2.5 MG/3 ML Neb Soln NEB ONE (22:09)
[2019-12-13] MEDS ORDERED: Aspirin 81 MG Tab.Chew PO ONE (22:12)
[2019-12-13] MEDS ORDERED: methylPREDNISolone Sodium Succinate 125 MG/2 ML SDV IVPUSH ONE (22:39)
[2019-12-13] MEDS ORDERED: Ondansetron 4 MG/2 ML SDV IVPUSH PRN (23:34)
[2019-12-13] MEDS ORDERED: 50% Dextrose in Water 50 ML Syringe IVPUSH PRN (23:34)
[2019-12-13] MEDS ORDERED: Ondansetron 4 MG Tab.DIS PO PRN (23:34)
[2019-12-13] MEDS ORDERED: Glucagon,Human Recombinant 1 MG Vial IM PRN (23:34)
[2019-12-13] MEDS ORDERED: Albuterol 0.083% 2.5 MG/3 ML Neb Soln NEB PRN (23:34)
[2019-12-13] MEDS ORDERED: Ibuprofen 600 MG Tab PO PRN (23:42)
--- NOTE | 2019-12-13 23:42 | PCM.HP ---
H&P History of Present Illness - General Date of Service: 12/13/19 Admit Problem/Dx: Admission Diagnosis/Problem Admission Diagnosis/Problem COPD with acute lower respiratory infection Source of Information: Patient, Provider - History of Present Illness Initial Comments - Free Text/Narative: Mr. Patterson is a 59-year-old male with medical history significant for COPD, diabetes mellitus, dyslipidemia, tobacco use disorder, and previous history of history who presented to the ED with complaints of worsening shortness of breath. Patient reports that he has been dealing with shortness of breath for the past 1 week. He reports that he has chronic cough at baseline. States that shortness of breath has been progressively worsening. Reports that he can barely walk a few steps without stopping to catch his breath. Also reports that he has greenish purulent sputum production. States that he has been having posttussive emesis lately. Denies fevers, chills, chest pain, rhinorrhea , sore throat, myalgias, weight changes,, PND, orthopnea, or any new symptoms. Reports that he smokes course of pack of cigarettes daily. States that he drinks little alcohol. Denies illicit drug use. Patient was noted to have WBC count of 13.7 with temperature of 97.3, heart rate of 109, respiratory rate of 22, and of 141/72. O2 saturation was 88% on room air and increased to 91% on 2 L of oxygen. - Related Data Allergies/Adverse Reactions: Allergies Allergy/AdvReac Type Severity Reaction Status Date / Time No Known Allergies Allergy Verified 12/13/19 21:19 Home Medications: Home Meds Simvastatin 20 mg PO BEDTIME 08/25/14 [History] glyBURIDE [Glyburide] 5 mg PO BID 08/25/14 [History] metFORMIN [Glucophage] 1,000 mg PO BID 08/25/14 [History] Albuterol Sulfate [Albuterol Sulfate HFA] 2 puff INH Q6H PRN 12/23/14 [History] Aspirin [[place] Aspirin EC] 81 mg PO DAILY 12/23/14 [History] Vitamin E 180 unit PO BEDTIME 01/17/18 [History] traZODone HCl [Trazodone HCl] 50 mg PO BEDTIME 10/25/18 [History] DULoxetine [Cymbalta] 30 mg PO DAILY 12/13/19 [History] Past Medical History HEENT History: Reports: Cataract, Impaired Vision Other HEENT History: UPPER DENTURES Cardiovascular History: Reports: High Cholesterol, SOB on Exertion Respiratory History: Reports: Bronchitis, Recurrent, COPD, SOB Gastrointestinal History: Reports: None Genitourinary History: Reports: None Musculoskeletal History: Reports: Arthritis, Back Pain, Chronic, Osteoarthritis Neurological History: Reports: Neuropathy, Peripheral Psychiatric History: Reports: None Endocrine/Metabolic History: Reports: Diabetes, Type II Hematologic History: Reports: None Immunologic History: Reports: None Oncologic (Cancer) History: Reports: None Dermatologic History: Reports: None - Infectious Disease History Infectious Disease History: Reports: Chicken Pox, Measles - Past Surgical History Head Surgeries/Procedures: Reports: None HEENT Surgical History: Reports: Cataract Surgery, Oral Surgery Cardiovascular Surgical History: Reports: None Respiratory Surgical History: Reports: None Male Surgical History: Reports: None Endocrine Surgical History: Reports: None Musculoskeletal Surgical History: Reports: Arthroscopic Knee Social & Family History - Family History Family Medical History: Noncontributory Other Respiratory Family Hisory: father from lung cancer Endocrine/Metabolic: Reports: Diabetes, type II Other Endocrine/Metabolic Family History: mother has DM and possibley hypercholesterolemia - Tobacco Use Smoking Status *Q: Current Every Day Smoker Years of Tobacco use: 45 Packs/Tins Daily: 0.7 Used Tobacco, but Quit: No - Caffeine Use Caffeine Use: Reports: Coffee, Soda Other Caffeine Use: 24 cups daily - Recreational Drug Use Recreational Drug Use: No - Living Situation & Occupation Living situation: Reports: H&P Review of Systems - Review of Systems: Review Of Systems: Comprehensive ROS is negative, except as noted in HPI. Exam - Exam Exam: See Below - Vital Signs Vital Signs: Last Vital Signs Temp 98.5 F 12/13/19 22:49 Pulse 103 H 12/13/19 22:49 Resp 20 12/13/19 22:49 BP 124/75 12/13/19 22:49 Pulse Ox 91 L 12/13/19 22:49 Weight: 173 lb 6.4 oz - Exam General: Alert, Oriented, Cooperative HEENT: Conjunctiva Clear, EOMI, Hearing Intact, Mucosa Moist & [place] Neck: Supple, Trachea Midline Lungs: Rhonchi, Wheezing Cardiovascular: Regular Rhythm, Normal S1, Normal S2, Tachycardia GI/Abdominal Exam: Normal Bowel Sounds, Soft, Non-Tender, No Distention Extremities: Normal Inspection, Non-Tender, No Pedal Edema Skin: Warm, Dry, Intact Neuro Extensive - Mental Status: Alert, Oriented x3, Normal Mood/Affect, Normal Cognition Psychiatric: Alert, Normal Affect, Normal Mood - Patient Data Lab Results Last 24 hrs: Laboratory Results - last 24 hr 12/13/19 12/13/19 12/13/19 Range/Units 21:00 21:00 21:00 WBC 13.5 H (5.0-10.0) 10^3/uL RBC 4.60 (4.6-6.2) 10^6/uL Hgb 13.7 L (14.0-18.0) g/dL Hct 40.9 (40.0-54.0) % MCV 88.9 (80-100) fL MCH 29.8 (27.0-34.0) pg MCHC 33.5 (33.0-35.0) g/dL Plt Count 405 (150-450) 10^3/uL Neut % (Auto) 61.6 (42.2-75.2) % Lymph % (Auto) 22.0 (20.5-50.1) % [place] % (Auto) 8.7 H (2-8) % Eos % (Auto) 7.3 H (1.0-3.0) % Baso % (Auto) 0.4 (0.0-1.0) % Sodium 136 (135-145) mmol/L Potassium 4.1 (3.6-5.0) mmol/L Chloride 102 (101-111) mmol/L Carbon Dioxide 27.0 (21.0-31.0) mmol/L Anion Gap 11.1 BUN 15 (7-18) mg/dL Creatinine 0.8 (0.6-1.3) mg/dL Est Cr Clr Drug Dosing 88.61 mL/min Estimated GFR (MDRD) > 60 BUN/Creatinine Ratio 18.75 Glucose 174 H (74-105) mg/dL Lactic Acid 1.2 (0.5-2.0) mmol/L Calcium 9.1 (8.4-10.2) mg/dl Total Bilirubin 0.4 (0.2-1.0) mg/dL AST 13 (10-42) IU/L ALT 10 (10-60) IU/L Alkaline Phosphatase 81 (42-121) IU/L Troponin I 0.03 H* (0.00-0.02) ng/ml B-Natriuretic Peptide 7 (0-100) pg/ml Total Protein 6.9 (6.7-8.2) g/dl Albumin 3.8 (3.2-5.5) g/dl Globulin 3.1 Albumin/Globulin Ratio 1.23 Result Diagrams: 12/14/19 06:00 12/14/19 06:00 Lopez Results Last 24 hrs: Microbiology 12/13/19 21:15 Influenza Type A Antigen Screen - Final Nasal Aspirate, Left NEGATIVE INFLUENZA A VIRUS AG REFERENCE RANGE: NEGATIVE Influenza Type B Antigen Screen - Final NEGATIVE INFLUENZA B VIRUS AG REFERENCE RANGE: NEGATIVE - Problem List (1) Acute exacerbation of chronic obstructive pulmonary disease (COPD) SNOMED Code(s): 135487413 ICD Code: J44.1 - CHRONIC OBSTRUCTIVE PULMONARY DISEASE W (ACUTE) EXACERBATION Status: Acute Current Visit: No (2) Sepsis SNOMED Code(s): 16820631 ICD Code: A41.9 - SEPSIS, UNSPECIFIED ORGANISM Status: Acute Current Visit: No (3) Diabetes mellitus type 2 SNOMED Code(s): 71802813 ICD Code: E11.9 - TYPE 2 DIABETES MELLITUS WITHOUT COMPLICATIONS Status: Chronic Priority: Medium Current Visit: Yes (4) Dyslipidemia SNOMED Code(s): 712362016 ICD Code: E78.5 - HYPERLIPIDEMIA, UNSPECIFIED Status: Chronic Current Visit: No (5) Tobacco user SNOMED Code(s): 339542200 ICD Code: Z72.0 - TOBACCO USE Status: Chronic Priority: Low Current Visit: Yes Problem List Initiated/Reviewed/Updated: Yes Orders Last 24hrs: Active Orders 24 hr Category Date Time Status Admission Diagnosis [ADT] Stat ADT 12/13/19 23:00 Ordered Admission Status [Patient Status] [ADT] Routine ADT 12/13/19 23:00 Active Cardiac Monitoring [RC] . DIRECTED Care 12/13/19 23:00 Active Diabetes Education [RC] Click to Edit Care 12/13/19 23:34 Ordered EKG 12 Lead [EKG Documentation Completion] [RC] STAT Care 12/13/19 21:18 Active Intake and Output [RC] QSHIFT Care 12/13/19 23:35 Ordered Notify Provider [RC] PRN Care 12/13/19 23:34 Ordered Oxygen Therapy [RC] PRN Care 12/13/19 23:34 Ordered RT Aerosol Therapy [RC] ASDIRECTED Care 12/13/19 21:21 Active RT Aerosol Therapy [RC] ASDIRECTED Care 12/13/19 22:09 Active RT Aerosol Therapy [RC] ASDIRECTED Care 12/13/19 23:36 Ordered VTE/DVT Education [RC] PER UNIT ROUTINE Care 12/13/19 23:34 Ordered Vital Signs [RC] Q4H Care 12/13/19 23:34 Ordered Consistent Carbohydrate Diet [DIET] Diet 12/13/19 Breakfast Ordered BASIC METABOLIC PANEL,BMP [CHEM] AM Lab 12/14/19 05:11 Ordered CBC W/O DIFF,HEMOGRAM [HEME] AM Lab 12/14/19 05:11 Ordered CULTURE BLOOD [BC] Stat Lab 12/13/19 21:00 Received CULTURE BLOOD [BC] Stat Lab 12/13/19 21:25 Ordered Albuterol [Proventil Neb Soln] Med 12/13/19 23:34 Ordered 2.5 mg NEB Q2H PRN Albuterol/Ipratropium [DuoNeb 3.0-0.5 MG/3 ML] Med 12/13/19 23:34 Ordered 3 ml NEB Q4H PRN Dextrose 50% in Water Med 12/13/19 23:34 Ordered 25 ml IVPUSH ASDIRECTED PRN Docusate Sodium/Sennosides [Senna Plus] Med 12/13/19 23:34 Ordered 1 tab PO BEDTIME PRN Enoxaparin [Lovenox] Med 12/14/19 09:00 Ordered 40 mg SUBCUT DAILY Glucagon,Human Recombinant [GlucaGen] Med 12/13/19 23:34 Ordered 1 mg IM ONETIME PRN Ondansetron [Zofran ODT] Med 12/13/19 23:34 Ordered 4 mg PO Q6H PRN Ondansetron [Zofran] Med 12/13/19 23:34 Ordered 4 mg IVPUSH Q6H PRN Blood Culture x2 Reflex Set [OM.PC] Stat Oth 12/13/19 21:25 Ordered Resuscitation Status Routine Resus Stat 12/13/19 23:34 Ordered Assessment/Plan Comment:: #Acute COPD exacerbation patient with history of COPD. Patient reports shortness of breath and sputum production O2 saturation of 88% on presentation to the ED. Start azithromycin and prednisone Incentive spirometer Supplemental oxygen, titrate to SPO2 of 88 to 92% Nebulized and inhaled treatments #Probable sepsis: Patient with cough with sputum production. Also with leukocytosis, WBC count of 13.5 with heart rate of 109 and respiratory rate of 22. Chest x-ray with no acute findings Patient has no GI or urinary symptoms Will treat as community-acquired pneumonia with ceftriaxone and azithromycin #Troponin elevation: Patient with troponin of 0.03. Likely demand ischemia. Denies any cardiac symptoms. - Trend troponin. - NPO - Tele #Post-tussive emesis: - Antiemesis protocol. #Diabetes: Scale insulin with hypoglycemia protocol #Depression/Anxiety: Continue cymbalta and trazodone. Tobacco use disorder: Smoking about recurrence of a pack daily. Smoking cessation counseling Patient reports that he has been thinking about quitting smoking. Continue to offer support DVT PPx: Lovenox GI PPx: NPO
[2019-12-13] MEDS ORDERED: cefTRIAXone 2 GM in Sodium Chloride 0.9% 100 ML IV SCH (23:45)
[2019-12-13] MEDS ORDERED: Formoterol/Mometasone 100-5 MCG 8.8 GM Inhaler IH SCH (23:45)
[2019-12-14] MEDS: Azithromycin 250 MG Tab PO SCH ×2 (00:32→08:42)
[2019-12-14 06:48] LABS: ANION GAP 13.3; CHLORIDE,CL 101 mmol/L (101-111); SODIUM,NA 135 mmol/L (135-145)
[2019-12-14] MEDS: Aspirin 81 MG Tab.EC PO SCH (08:42)
[2019-12-14] MEDS: Insulin Lispro 100 Units/ML 3 ML Vial SUBCUT SCH ×4 (08:43→21:19)
[2019-12-14] MEDS: Enoxaparin 40 MG/0.4 ML Syringe SUBCUT SCH (08:43)
--- NOTE | 2019-12-14 10:12 | PCM.PN ---
- General Info Date of Service: 12/14/19 Admission Dx/Problem (Free Text): Admission Diagnosis/Problem Admission Diagnosis/Problem COPD with acute lower respiratory infection Subjective Update: Patient seen and evaluated. Saturating well on room air. However, O2 dropped to 83% with ambulation this morning. Reports cough is still present. Denies fevers , chills, ches pain, n/v/d/c, dysuria, hematuria, or edema. - Patient Data Vitals - Most Recent: Last Vital Signs Temp 97.7 F 12/14/19 08:00 Pulse 77 12/14/19 08:00 Resp 18 12/14/19 08:00 BP 118/63 12/14/19 08:00 Pulse Ox 89 L 12/14/19 08:00 Weight - Most Recent: 173 lb 6.4 oz Lab Results Last 24 Hours: Laboratory Results - last 24 hr 12/13/19 12/13/19 12/13/19 Range/Units 21:00 21:00 21:00 WBC 13.5 H (5.0-10.0) 10^3/uL RBC 4.60 (4.6-6.2) 10^6/uL Hgb 13.7 L (14.0-18.0) g/dL Hct 40.9 (40.0-54.0) % MCV 88.9 (80-100) fL MCH 29.8 (27.0-34.0) pg MCHC 33.5 (33.0-35.0) g/dL Plt Count 405 (150-450) 10^3/uL Neut % (Auto) 61.6 (42.2-75.2) % Lymph % (Auto) 22.0 (20.5-50.1) % [place] % (Auto) 8.7 H (2-8) % Eos % (Auto) 7.3 H (1.0-3.0) % Baso % (Auto) 0.4 (0.0-1.0) % Sodium 136 (135-145) mmol/L Potassium 4.1 (3.6-5.0) mmol/L Chloride 102 (101-111) mmol/L Carbon Dioxide 27.0 (21.0-31.0) mmol/L Anion Gap 11.1 BUN 15 (7-18) mg/dL Creatinine 0.8 (0.6-1.3) mg/dL Est Cr Clr Drug Dosing 88.61 mL/min Estimated GFR (MDRD) > 60 BUN/Creatinine Ratio 18.75 Glucose 174 H (74-105) mg/dL POC Glucose (70-105) mg/dl Lactic Acid 1.2 (0.5-2.0) mmol/L Calcium 9.1 (8.4-10.2) mg/dl Total Bilirubin 0.4 (0.2-1.0) mg/dL AST 13 (10-42) IU/L ALT 10 (10-60) IU/L Alkaline Phosphatase 81 (42-121) IU/L Troponin I 0.03 H* (0.00-0.02) ng/ml B-Natriuretic Peptide 7 (0-100) pg/ml Total Protein 6.9 (6.7-8.2) g/dl Albumin 3.8 (3.2-5.5) g/dl Globulin 3.1 Albumin/Globulin Ratio 1.23 12/14/19 12/14/19 12/14/19 Range/Units 06:00 06:00 06:00 WBC 11.7 H (5.0-10.0) 10^3/uL RBC 4.86 (4.6-6.2) 10^6/uL Hgb 14.5 (14.0-18.0) g/dL Hct 43.1 (40.0-54.0) % MCV 88.7 (80-100) fL MCH 29.8 (27.0-34.0) pg MCHC 33.6 (33.0-35.0) g/dL Plt Count 433 (150-450) 10^3/uL Neut % (Auto) (42.2-75.2) % Lymph % (Auto) (20.5-50.1) % [place] % (Auto) (2-8) % Eos % (Auto) (1.0-3.0) % Baso % (Auto) (0.0-1.0) % Sodium 135 (135-145) mmol/L Potassium 4.3 (3.6-5.0) mmol/L Chloride 101 (101-111) mmol/L Carbon Dioxide 25.0 (21.0-31.0) mmol/L Anion Gap 13.3 BUN 16 (7-18) mg/dL Creatinine 0.8 (0.6-1.3) mg/dL Est Cr Clr Drug Dosing 88.61 mL/min Estimated GFR (MDRD) > 60 BUN/Creatinine Ratio Glucose 225 H (74-105) mg/dL POC Glucose (70-105) mg/dl Lactic Acid (0.5-2.0) mmol/L Calcium 9.0 (8.4-10.2) mg/dl Total Bilirubin (0.2-1.0) mg/dL AST (10-42) IU/L ALT (10-60) IU/L Alkaline Phosphatase (42-121) IU/L Troponin I < 0.02 (0.00-0.02) ng/ml B-Natriuretic Peptide (0-100) pg/ml Total Protein (6.7-8.2) g/dl Albumin (3.2-5.5) g/dl Globulin Albumin/Globulin Ratio 12/14/19 Range/Units 07:44 WBC (5.0-10.0) 10^3/uL RBC (4.6-6.2) 10^6/uL Hgb (14.0-18.0) g/dL Hct (40.0-54.0) % MCV (80-100) fL MCH (27.0-34.0) pg MCHC (33.0-35.0) g/dL Plt Count (150-450) 10^3/uL Neut % (Auto) (42.2-75.2) % Lymph % (Auto) (20.5-50.1) % [place] % (Auto) (2-8) % Eos % (Auto) (1.0-3.0) % Baso % (Auto) (0.0-1.0) % Sodium (135-145) mmol/L Potassium (3.6-5.0) mmol/L Chloride (101-111) mmol/L Carbon Dioxide (21.0-31.0) mmol/L Anion Gap BUN (7-18) mg/dL Creatinine (0.6-1.3) mg/dL Est Cr Clr Drug Dosing mL/min Estimated GFR (MDRD) BUN/Creatinine Ratio Glucose (74-105) mg/dL POC Glucose 222 H (70-105) mg/dl Lactic Acid (0.5-2.0) mmol/L Calcium (8.4-10.2) mg/dl Total Bilirubin (0.2-1.0) mg/dL AST (10-42) IU/L ALT (10-60) IU/L Alkaline Phosphatase (42-121) IU/L Troponin I (0.00-0.02) ng/ml B-Natriuretic Peptide (0-100) pg/ml Total Protein (6.7-8.2) g/dl Albumin (3.2-5.5) g/dl Globulin Albumin/Globulin Ratio Lopez Results Last 24 Hours: Microbiology 12/13/19 21:15 Influenza Type A Antigen Screen - Final Nasal Aspirate, Left NEGATIVE INFLUENZA A VIRUS AG REFERENCE RANGE: NEGATIVE Influenza Type B Antigen Screen - Final NEGATIVE INFLUENZA B VIRUS AG REFERENCE RANGE: NEGATIVE Med Orders - Current: Current Medications Albuterol (Proventil Neb Soln) 2.5 mg NEB Q2H PRN PRN Reason: shortness of breath/wheezing Albuterol/Ipratropium (Duoneb 3.0-0.5 Mg/3 Ml) 3 ml NEB Q4H PRN PRN Reason: shortness of breath/wheezing Aspirin (Halfprin) 81 mg PO DAILY [facility] Last Admin: 12/14/19 08:42 Dose: 81 mg Azithromycin (Zithromax) 500 mg PO DAILY [facility] Last Admin: 12/14/19 08:42 Dose: 500 mg Dextrose/Water (Dextrose 50% In Water) 25 ml IVPUSH ASDIRECTED PRN PRN Reason: Hypoglycemia Enoxaparin Sodium (Lovenox) 40 mg SUBCUT DAILY [facility] Last Admin: 12/14/19 08:43 Dose: Not Given Glucagon (Glucagen) 1 mg IM ONETIME PRN PRN Reason: Hypoglycemia Ceftriaxone Sodium 2 gm/ (Sodium Chloride) 100 mls @ 200 mls/hr IV Q24H [facility] Last Infusion: 12/14/19 01:10 Dose: Infused Ibuprofen (Motrin) 600 mg PO Q6H PRN PRN Reason: Pain Insulin Human Lispro (Humalog) 0 unit SUBCUT ACBED [facility]; Protocol Last Admin: 12/14/19 08:43 Dose: 2 units Mometasone Furoate/Formoterol Fumar (Dulera 100-5 Mcg) 2 puff IH ASDIRECTED [facility] Ondansetron HCl (Zofran Odt) 4 mg PO Q6H PRN PRN Reason: nausea, able to take PO Ondansetron HCl (Zofran) 4 mg IVPUSH Q6H PRN PRN Reason: Nausea/Vomiting Prednisone (Prednisone) 40 mg PO WITHBREAKFAST HAN Senna/Docusate Sodium (Senna Plus) 1 tab PO BEDTIME PRN PRN Reason: Constipation Simvastatin (Zocor) 40 mg PO BEDTIME HAN Trazodone HCl (Trazodone) 50 mg PO BEDTIME HAN Discontinued Medications Albuterol (Proventil Neb Soln) 2.5 mg NEB ONETIME ONE Stop: 12/13/19 22:10 Last Admin: 12/13/19 22:12 Dose: 2.5 mg Albuterol/Ipratropium (Duoneb 3.0-0.5 Mg/3 Ml) 3 ml NEB ONETIME ONE Stop: 12/13/19 21:22 Last Admin: 12/13/19 21:31 Dose: 3 ml Aspirin (Aspirin) 324 mg PO ONETIME ONE Stop: 12/13/19 22:13 Last Admin: 12/13/19 22:26 Dose: 324 mg Methylprednisolone Sodium Succinate (Solu-Medrol) 125 mg IVPUSH ONETIME ONE Stop: 12/13/19 22:40 Last Admin: 12/13/19 22:46 Dose: 125 mg - Exam General: Alert, Oriented, Cooperative HEENT: Pupils Equal, Pupils Reactive, Mucous Membr. Moist/[place] Neck: Supple, Trachea Midline Lungs: Rhonchi, Wheezing Cardiovascular: Regular Rate, Regular Rhythm, No Murmurs GI/Abdominal Exam: Normal Bowel Sounds, Soft, Non-Tender, No Distention Extremities: Normal Inspection, Non-Tender, No Pedal Edema Neurological: No New Focal Deficit, Normal Gait Psy/Mental Status: Alert, Normal Affect, Normal Mood Sepsis Event Note - Evaluation Sepsis Screening Result: No Definite Risk - Focused Exam Vital Signs: Vital Signs Temp Pulse Resp BP BP Pulse Ox Pulse Ox 12/14/19 08:00 97.7 F 77 18 118/63 89 L 12/13/19 23:34 99.1 F 97 22 H 132/75 131/71 90 L 90 L 12/13/19 22:49 98.5 F 103 H 20 124/75 91 L Date Exam was Performed: 12/14/19 Time Exam was Performed: 10:06 - Problem List & Annotations (1) Acute exacerbation of chronic obstructive pulmonary disease (COPD) SNOMED Code(s): 673788670 Code(s): J44.1 - CHRONIC OBSTRUCTIVE PULMONARY DISEASE W (ACUTE) EXACERBATION Status: Acute Current Visit: No (2) Sepsis SNOMED Code(s): 94823994 Code(s): A41.9 - SEPSIS, UNSPECIFIED ORGANISM Status: Acute Current Visit : No (3) Diabetes mellitus type 2 SNOMED Code(s): 23114835 Code(s): E11.9 - TYPE 2 DIABETES MELLITUS WITHOUT COMPLICATIONS Status: Chronic Priority: Medium Current Visit: Yes (4) Dyslipidemia SNOMED Code(s): 999328746 Code(s): E78.5 - HYPERLIPIDEMIA, UNSPECIFIED Status: Chronic Current Visit: No (5) Tobacco user SNOMED Code(s): 250663132 Code(s): Z72.0 - TOBACCO USE Status: Chronic Priority: Low Current Visit: Yes - Problem List Review Problem List Initiated/Reviewed/Updated: Yes - My Orders Last 24 Hours: My Active Orders 12/13/19 23:34 Diabetes Education [RC] Click to Edit Notify Provider [RC] PRN Oxygen Therapy [RC] PRN VTE/DVT Education [RC] PER UNIT ROUTINE Vital Signs [RC] 00,04,08,12,16,20 Albuterol [Proventil Neb Soln] 2.5 mg NEB Q2H PRN Albuterol/Ipratropium [DuoNeb 3.0-0.5 MG/3 ML] 3 ml NEB Q4H PRN Dextrose 50% in Water 25 ml IVPUSH ASDIRECTED PRN Docusate Sodium/Sennosides [Senna Plus] 1 tab PO BEDTIME PRN Glucagon,Human Recombinant [GlucaGen] 1 mg IM ONETIME PRN Ondansetron [Zofran ODT] 4 mg PO Q6H PRN Ondansetron [Zofran] 4 mg IVPUSH Q6H PRN Resuscitation Status Routine 12/13/19 23:35 Intake and Output [RC] QSHIFT 12/13/19 23:36 RT Aerosol Therapy [RC] ASDIRECTED 12/13/19 23:42 Ibuprofen [Motrin] 600 mg PO Q6H PRN 12/13/19 23:45 Azithromycin [Zithromax] 500 mg PO DAILY Mometasone/Formoterol [Dulera 100-5 MCG] 2 puff IH ASDIRECTED cefTRIAXone [Rocephin] 2 gm Sodium Chloride 0.9% [Normal Saline] 100 ml IV Q24H 12/14/19 07:00 Insulin Lispro [HumaLOG] See Protocol SUBCUT ACBED 12/14/19 09:00 Aspirin [Halfprin] 81 mg PO DAILY Enoxaparin [Lovenox] 40 mg SUBCUT DAILY 12/14/19 21:00 Simvastatin [Zocor] 40 mg PO BEDTIME traZODone 50 mg PO BEDTIME 12/14/19 23:50 predniSONE 40 mg PO WITHBREAKFAST - Plan Plan:: #Acute COPD exacerbation patient with history of COPD. -Patient reports shortness of breath and sputum production -O2 saturation of 88% on presentation to the ED. -Continue azithromycin and prednisone -Incentive spirometer -Supplemental oxygen, titrate to SPO2 of 88 to 92% -Nebulized and inhaled treatments #Acute respiratory failure with hypoxia: O2 saturation in the ED was 88% on room air. Ambulatory O2 this morning was down to 83% on room air. - Antibiotics above. - Nebulized and inhaled treatments. - IS and flutter valve. #Probable sepsis do to CAP: Patient with cough with sputum production. Also with leukocytosis, WBC count of 13.5 with heart rate of 109 and respiratory rate of 22. WBC down to 11 with Abx. - Chest x-ray with no acute findings - Patient has no GI or urinary symptoms - Continue ceftriaxone and azithromycin #Troponin elevation: Patient with troponin of 0.03. Likely demand ischemia. Denies any cardiac symptoms. - Trend troponin. #Post-tussive emesis: Has not recurred. - Antiemesis protocol. #Diabetes: -Sliding scale insulin with hypoglycemia protocol #Depression/Anxiety: -Continue cymbalta and trazodone. #Tobacco use disorder: Smoking about recurrence of a pack daily. - Smoking cessation counseling - Patient reports that he has been thinking about quitting smoking. - Continue to offer support DVT PPx: Lovenox GI PPx: NPO
[2019-12-14] MEDS: Albuterol/Ipratropium 3.0-0.5 MG/3 ML Neb Soln NEB PRN ×2 (16:14→20:46)
[2019-12-14] MEDS ORDERED: Acetaminophen 325 MG Tab PO PRN (19:13)
[2019-12-14] MEDS ORDERED: cefTRIAXone 2 GM in Sodium Chloride 0.9% 100 ML IV SCH (21:00)
[2019-12-14] MEDS ORDERED: Simvastatin 40 MG Tab PO SCH (21:00)
[2019-12-14] MEDS ORDERED: traZODone 50 MG Tab PO SCH (21:00)
[2019-12-14] MEDS: predniSONE 20 MG Tab PO SCH (23:46)
[2019-12-15] MEDS: Albuterol/Ipratropium 3.0-0.5 MG/3 ML Neb Soln NEB PRN (04:20)
[2019-12-15 07:38] VITALS: BP 120/76; PULSE 75
[2019-12-15] MEDS: Insulin Lispro 100 Units/ML 3 ML Vial SUBCUT SCH ×2 (08:22→12:47)
[2019-12-15] MEDS: predniSONE 20 MG Tab PO SCH (08:29)
[2019-12-15] MEDS: Aspirin 81 MG Tab.EC PO SCH (08:30)
[2019-12-15] MEDS: Enoxaparin 40 MG/0.4 ML Syringe SUBCUT SCH (08:30)
[2019-12-15] MEDS: Azithromycin 250 MG Tab PO SCH (08:30)
--- NOTE | 2019-12-15 10:41 | PCM.DCSUM1 ---
Discharge Summary - Hospital Course Free Text/Narrative:: Mr. Patterson is a 59-year-old male with medical history significant for COPD, diabetes mellitus, dyslipidemia, tobacco use disorder, and previous history of history who was admitted for acute COPD exacerbation and sepsis due to CAP. Patient was started on DuoNebs, albuterol, rocephin, and azithromycin. Troponin on presentation was 0.04. Repeat was <0.02. He desaturated to 83% with activity on hospital day 1. He improved to having O2 drop briefly to 86% with activity today on formal walking desaturation test. He was discharged home to continue nebulized albuterol, duonebs, prednisone, and azithromycin. He was started on ipratropium. He was counselled extensively about the importance of smoking cessation. Verbalized readiness to quit. HPI Initial Comments: Mr. Patterson is a 59-year-old male with medical history significant for COPD, diabetes mellitus, dyslipidemia, tobacco use disorder, and previous history of history who presented to the ED with complaints of worsening shortness of breath. Patient reports that he has been dealing with shortness of breath for the past 1 week. He reports that he has chronic cough at baseline. States that shortness of breath has been progressively worsening. Reports that he can barely walk a few steps without stopping to catch his breath. Also reports that he has greenish purulent sputum production. States that he has been having posttussive emesis lately. Denies fevers, chills, chest pain, rhinorrhea , sore throat, myalgias, weight changes,, PND, orthopnea, or any new symptoms. Reports that he smokes course of pack of cigarettes daily. States that he drinks little alcohol. Denies illicit drug use. Patient was noted to have WBC count of 13.7 with temperature of 97.3, heart rate of 109, respiratory rate of 22, and of 141/72. O2 saturation was 88% on room air and increased to 91% on 2 L of oxygen. Diagnosis: Stroke: No - Discharge Data Discharge Date: 12/15/19 Discharge Disposition: Home, Self-Care 01 Condition: Fair - Referral to Home Health Primary Care Physician: Juliocesar Stout MD - Discharge Diagnosis/Problem(s) (1) Acute exacerbation of chronic obstructive pulmonary disease (COPD) SNOMED Code(s): 927504366 ICD Code: J44.1 - CHRONIC OBSTRUCTIVE PULMONARY DISEASE W (ACUTE) EXACERBATION Status: Acute Current Visit: No (2) Sepsis SNOMED Code(s): 90635373 ICD Code: A41.9 - SEPSIS, UNSPECIFIED ORGANISM Status: Acute Current Visit: No (3) Diabetes mellitus type 2 SNOMED Code(s): 66257625 ICD Code: E11.9 - TYPE 2 DIABETES MELLITUS WITHOUT COMPLICATIONS Status: Chronic Priority: Medium Current Visit: Yes (4) Dyslipidemia SNOMED Code(s): 840339451 ICD Code: E78.5 - HYPERLIPIDEMIA, UNSPECIFIED Status: Chronic Current Visit: No (5) Tobacco user SNOMED Code(s): 117529470 ICD Code: Z72.0 - TOBACCO USE Status: Chronic Priority: Low Current Visit: Yes - Discharge Plan *PRESCRIPTION DRUG MONITORING PROGRAM REVIEWED*: No *COPY OF PRESCRIPTION DRUG MONITORING REPORT IN PATIENT ANNEL: No Prescriptions/Med Rec: Albuterol [Proventil Neb Soln] 2.5 mg NEB Q2H PRN #30 neb PRN Reason: shortness of breath/wheezing Albuterol/Ipratropium [DuoNeb 3.0-0.5 MG/3 ML] 3 ml NEB Q4H PRN #30 neb PRN Reason: shortness of breath/wheezing Azithromycin [Zithromax] 500 mg PO DAILY #3 tablet predniSONE 40 mg PO WITHBREAKFAST 3 Days #6 tablet Tiotropium [Spiriva HandiHaler] 18 mcg .XX DAILY #30 cap Home Medications: Home Meds Simvastatin 20 mg PO BEDTIME 08/25/14 [History] glyBURIDE [Glyburide] 5 mg PO BID 08/25/14 [History] metFORMIN [Glucophage] 1,000 mg PO BID 08/25/14 [History] Albuterol Sulfate [Albuterol Sulfate HFA] 2 puff INH Q6H PRN 12/23/14 [History] Aspirin [[place] Aspirin EC] 81 mg PO DAILY 12/23/14 [History] Vitamin E 180 unit PO BEDTIME 01/17/18 [History] traZODone HCl [Trazodone HCl] 50 mg PO BEDTIME 10/25/18 [History] DULoxetine [Cymbalta] 30 mg PO DAILY 12/13/19 [History] Albuterol [Proventil Neb Soln] 2.5 mg NEB Q2H PRN #30 neb 12/15/19 [Rx] Albuterol/Ipratropium [DuoNeb 3.0-0.5 MG/3 ML] 3 ml NEB Q4H PRN #30 neb [Rx] Azithromycin [Zithromax] 500 mg PO DAILY #3 tablet 12/15/19 [Rx] Tiotropium [Spiriva HandiHaler] 18 mcg .XX DAILY #30 cap 12/15/19 [Rx] predniSONE 40 mg PO WITHBREAKFAST 3 Days #6 tablet 12/15/19 [Rx] Referrals: Juliocesar Stout MD [Primary Care Provider] - - Discharge Summary/Plan Comment DC Time >30 min.: Yes - General Info Date of Service: 12/15/19 Admission Dx/Problem (Free Text: Admission Diagnosis/Problem Admission Diagnosis/Problem COPD with acute lower respiratory infection Subjective Update: Patient seen and evaluated. Saturating well on room air. O2 dropped briefly to 86% with activity but stayed mostly in 89% and increased to 90s with further ambulation. Afebrile. Denies fevers, chills, ches pain, n/v/d/c, dysuria, hematuria, or edema. - Review of Systems Systems Review Comment: As per subjective update above. - Patient Data Vitals - Most Recent: Last Vital Signs Temp 98 F 12/15/19 07:36 Pulse 75 12/15/19 07:36 Resp 16 12/15/19 07:36 BP 120/76 12/15/19 07:36 Pulse Ox 91 L 12/15/19 07:36 Weight - Most Recent: 173 lb 6.4 oz I&O - Last 24 hours: Intake & Output 12/14/19 12/15/19 12/15/19 22:59 06:59 14:59 Intake Total 1408 Output Total 800 Balance 608 Lab Results - Last 24 hrs: Laboratory Results - last 24 hr 12/14/19 12/14/19 12/14/19 Range/Units 11:39 16:51 21:13 POC Glucose 233 H 149 H 178 H (70-105) mg/dl 12/15/19 Range/Units 07:55 POC Glucose 124 H (70-105) mg/dl LAI Results - Last 24 hrs: Microbiology 12/13/19 21:00 Aerobic Blood Culture - Preliminary Blood - Venous NO GROWTH AFTER 1 DAY Anaerobic Blood Culture - Preliminary NO GROWTH AFTER 1 DAY Med Orders - Current: Current Medications Acetaminophen (Tylenol) 650 mg PO ONETIME PRN PRN Reason: Fever Greater Than 101 Albuterol (Proventil Neb Soln) 2.5 mg NEB Q2H PRN PRN Reason: shortness of breath/wheezing Albuterol/Ipratropium (Duoneb 3.0-0.5 Mg/3 Ml) 3 ml NEB Q4H PRN PRN Reason: shortness of breath/wheezing Last Admin: 12/15/19 04:20 Dose: 3 ml Aspirin (Halfprin) 81 mg PO DAILY [facility] Last Admin: 12/15/19 08:30 Dose: 81 mg Azithromycin (Zithromax) 500 mg PO DAILY [facility] Last Admin: 12/15/19 08:30 Dose: 500 mg Dextrose/Water (Dextrose 50% In Water) 25 ml IVPUSH ASDIRECTED PRN PRN Reason: Hypoglycemia Enoxaparin Sodium (Lovenox) 40 mg SUBCUT DAILY [facility] Last Admin: 12/15/19 08:30 Dose: Not Given Glucagon (Glucagen) 1 mg IM ONETIME PRN PRN Reason: Hypoglycemia Ceftriaxone Sodium 2 gm/ (Sodium Chloride) 100 mls @ 200 mls/hr IV Q24H [facility] Last Admin: 12/14/19 20:47 Dose: 200 mls/hr Ibuprofen (Motrin) 600 mg PO Q6H PRN PRN Reason: Pain Insulin Human Lispro (Humalog) 0 unit SUBCUT ACBED [facility]; Protocol Last Admin: 12/15/19 08:22 Dose: Not Given Ondansetron HCl (Zofran Odt) 4 mg PO Q6H PRN PRN Reason: nausea, able to take PO Ondansetron HCl (Zofran) 4 mg IVPUSH Q6H PRN PRN Reason: Nausea/Vomiting Prednisone (Prednisone) 40 mg PO WITHBREAKFAST [facility] Last Admin: 12/15/19 08:29 Dose: 40 mg Senna/Docusate Sodium (Senna Plus) 1 tab PO BEDTIME PRN PRN Reason: Constipation Simvastatin (Zocor) 40 mg PO BEDTIME [facility] Last Admin: 12/14/19 20:48 Dose: 40 mg Trazodone HCl (Trazodone) 50 mg PO BEDTIME [facility] Last Admin: 12/14/19 20:48 Dose: 50 mg Discontinued Medications Albuterol (Proventil Neb Soln) 2.5 mg NEB ONETIME ONE Stop: 12/13/19 22:10 Last Admin: 12/13/19 22:12 Dose: 2.5 mg Albuterol/Ipratropium (Duoneb 3.0-0.5 Mg/3 Ml) 3 ml NEB ONETIME ONE Stop: 12/13/19 21:22 Last Admin: 12/13/19 21:31 Dose: 3 ml Aspirin (Aspirin) 324 mg PO ONETIME ONE Stop: 12/13/19 22:13 Last Admin: 12/13/19 22:26 Dose: 324 mg Ceftriaxone Sodium 2 gm/ (Sodium Chloride) 100 mls @ 200 mls/hr IV Q24H [facility] Last Infusion: 12/14/19 01:10 Dose: Infused Methylprednisolone Sodium Succinate (Solu-Medrol) 125 mg IVPUSH ONETIME ONE Stop: 12/13/19 22:40 Last Admin: 12/13/19 22:46 Dose: 125 mg Mometasone Furoate/Formoterol Fumar (Dulera 100-5 Mcg) 2 puff IH ASDIRECTED HAN - Exam General: Reports: Alert, Oriented, Cooperative HEENT: Reports: Pupils Equal, Pupils Reactive, Mucous Membr. Moist/[place] Neck: Reports: Supple Lungs: Reports: Wheezing Cardiovascular: Reports: Regular Rate, Regular Rhythm, No Murmurs GI/Abdominal Exam: Normal Bowel Sounds, Soft, Non-Tender, No Distention Extremities: Normal Inspection, Non-Tender, No Pedal Edema Skin: Reports: Warm, Dry, Intact Neurological: Reports: No New Focal Deficit Psy/Mental Status: Reports: Alert, Normal Affect, Normal Mood
== END 2019-12-15 11:20 | disposition home or self-care (01) ==
LOC: DL.ED 19:58 → DL.MS 23:00
PROVIDERS: ADMIT Internal Medicine; ATTEND Internal Medicine
DX: J44.1 Chronic obstructive pulmonary disease with (acute) exacerbation (principal); A41.9 Sepsis, unspecified organism; E78.5 Hyperlipidemia, unspecified; E78.00 Pure hypercholesterolemia, unspecified; E11.42 Type 2 diabetes mellitus with diabetic polyneuropathy; M19.90 Unspecified osteoarthritis, unspecified site; R79.89 Other specified abnormal findings of blood chemistry; F32.9 Major depressive disorder, single episode, unspecified; F41.9 Anxiety disorder, unspecified; R11.10 Vomiting, unspecified; F17.210 Nicotine dependence, cigarettes, uncomplicated; Z79.899 Other long term (current) drug therapy; Z79.82 Long term (current) use of aspirin; Z79.84 Long term (current) use of oral hypoglycemic drugs
CPT/HCPCS: 36415; 71046; 80048; 80053; 82962; 83605; 83880; 84484; 85025; 85027; 87040; 87804; 93005; 94618; 94640; 96365; 96375; 96376; 99284; A9270; G0378; J0696; J1815; J2930; J7050; 96374; J7613-GY; J7620-GY

== ENCOUNTER 2020-04-27 04:57 | Inpatient (IN) | payer SELFPAY ==
[2020-04-27] MEDS ORDERED: Albuterol/Ipratropium 3.0-0.5 MG/3 ML Neb Soln NEB ONE (05:21)
[2020-04-27] MEDS ORDERED: methylPREDNISolone Sodium Succinate 125 MG/2 ML SDV IVPUSH ONE (05:25)
[2020-04-27] MEDS ORDERED: Budesonide 0.5 MG/2 ML Neb Susp NEB ONE (05:25)
[2020-04-27] MEDS ORDERED: Doxycycline 100 MG Cap PO ONE (05:30)
--- NOTE | 2020-04-27 05:31 | EDM.PDOC ---
ED HPI GENERAL MEDICAL PROBLEM - General Chief Complaint: Respiratory Problem Stated Complaint: CANT BREATHE Time Seen by Provider: 04/27/20 05:20 Source of Information: Reports: Patient History Limitations: Reports: No Limitations - History of Present Illness INITIAL COMMENTS - FREE TEXT/NARRATIVE: Patient comes emergency department today with complaints of increasing shortness of breath and unable to breathe. This patient has a longstanding history of COPD. For the past 2 to 3 days he has had increasing shortness of breath. He has had cough and congestion with increased sputum production. He does complain of a subjective fever at home. No chills. He has some tightness in his chest. No pain in his chest. No weakness dizziness lightheadedness. He has not had an y COVID exposure that he is aware of and he denies any diarrhea sore throat loss of taste or smell. No abdominal pain. He is more short of breath than normal with physical exertion. He did try a nebulizer at home without much improvement. He has not been on antibiotics or steroids recently for his COPD. He is down to 1/2 pack of cigarettes a day down from 1.5 packs a day. - Related Data Allergies Allergy/AdvReac Type Severity Reaction Status Date / Time No Known Allergies Allergy Verified 12/13/19 21:19 Home Meds: Home Meds Simvastatin 20 mg PO BEDTIME 08/25/14 [History] glyBURIDE [Glyburide] 5 mg PO BID 08/25/14 [History] metFORMIN [Glucophage] 1,000 mg PO BID 08/25/14 [History] Albuterol Sulfate [Albuterol Sulfate HFA] 2 puff INH Q6H PRN 12/23/14 [History] Aspirin [[place] Aspirin EC] 81 mg PO DAILY 12/23/14 [History] Vitamin E 180 unit PO BEDTIME 01/17/18 [History] traZODone HCl [Trazodone HCl] 50 mg PO BEDTIME 10/25/18 [History] DULoxetine [Cymbalta] 30 mg PO DAILY 12/13/19 [History] Albuterol [Proventil Neb Soln] 2.5 mg NEB Q2H PRN #30 neb 12/15/19 [Rx] Albuterol/Ipratropium [DuoNeb 3.0-0.5 MG/3 ML] 3 ml NEB Q4H PRN #30 neb 12/15/19 [Rx] Azithromycin [Zithromax] 500 mg PO DAILY #3 tablet 12/15/19 [Rx] Tiotropium [Spiriva HandiHaler] 18 mcg .XX DAILY #30 cap 12/15/19 [Rx] predniSONE 40 mg PO WITHBREAKFAST 3 Days #6 tablet 12/15/19 [Rx] Past Medical History HEENT History: Reports: Cataract, Impaired Vision Other HEENT History: UPPER DENTURES Cardiovascular History: Reports: High Cholesterol, SOB on Exertion Respiratory History: Reports: Bronchitis, Recurrent, COPD, SOB Gastrointestinal History: Reports: None Genitourinary History: Reports: None Musculoskeletal History: Reports: Arthritis, Back Pain, Chronic, Osteoarthritis Neurological History: Reports: Neuropathy, Peripheral Psychiatric History: Reports: None Endocrine/Metabolic History: Reports: Diabetes, Type II Hematologic History: Reports: None Immunologic History: Reports: None Oncologic (Cancer) History: Reports: None Dermatologic History: Reports: None - Infectious Disease History Infectious Disease History: Reports: Chicken Pox, Measles - Past Surgical History Head Surgeries/Procedures: Reports: None HEENT Surgical History: Reports: Cataract Surgery, Oral Surgery Cardiovascular Surgical History: Reports: None Respiratory Surgical History: Reports: None Male Surgical History: Reports: None Endocrine Surgical History: Reports: None Musculoskeletal Surgical History: Reports: Arthroscopic Knee Social & Family History - Family History Family Medical History: Noncontributory Other Respiratory Family Hisory: father from lung cancer Endocrine/Metabolic: Reports: Diabetes, type II Other Endocrine/Metabolic Family History: mother has DM and possibley hypercholesterolemia - Tobacco Use Smoking Status *Q: Current Every Day Smoker Years of Tobacco use: 46 Packs/Tins Daily: 0.5 Second Hand Smoke Exposure: Yes - Caffeine Use Caffeine Use: Reports: Coffee, Soda Other Caffeine Use: 24 cups daily - Recreational Drug Use Recreational Drug Use: No - Living Situation & Occupation Living situation: Reports: ED ROS GENERAL - Review of Systems Review Of Systems: Comprehensive ROS is negative, except as noted in HPI. ED EXAM, GENERAL - Physical Exam Exam: See Below Free Text/Narrative:: The patient is requiring 2 L of oxygen nasal cannula to keep his oxygen saturation above 90%. Exam Limited By: No Limitations General Appearance: Alert, WD/WN, No Apparent Distress, Mild Distress Eye Exam: Bilateral Eye: EOMI, PERRL Ears: Normal External Exam Nose: Normal Inspection Throat/Mouth: Normal Inspection Head: Atraumatic, Normocephalic Neck: Normal Inspection, Supple Respiratory/Chest: Decreased Breath Sounds (Throughout more on the left than the right.), Rhonchi (Rhonchi on the left.), Wheezing (Inspiratory and expiratory wheezing bilaterally.). No: Crackles, Rales, Stridor, Pleural Rub Cardiovascular: Normal Peripheral Pulses, Regular Rate, Rhythm, Tachycardia Peripheral Pulses: 2+: Radial (L), Radial (R), Posterior Tibial (L), Posterior Tibial (R), Dorsalis Pedis (L), Dorsalis Pedis (R) GI/Abdominal: Normal Bowel Sounds, Soft, Non-Tender (Male) Exam: Deferred Rectal (Males) Exam: Deferred Back Exam: Normal Inspection Extremities: Normal Inspection, Normal Range of Motion, Normal Capillary Refill Neurological: Alert, Oriented, Normal Cognition, Normal Gait, No Motor/Sensory Deficits Psychiatric: Normal Affect, Normal Mood Skin Exam: Warm, Dry, Intact, Normal Color, No Rash EKG INTERPRETATION EKG Date: 04/27/20 Time: 05:26 Rhythm: NSR Rate (Beats/Min): 106 [place]: RAD-Right [place] Deviation P-Wave: Present QRS: Normal ST-T: Normal QT: Normal Course - Vital Signs Last Recorded V/S: Last Vital Signs Temp 100.8 F H 04/27/20 05:01 Pulse 120 H 04/27/20 05:01 Resp 20 04/27/20 05:01 BP 122/69 04/27/20 05:01 Pulse Ox 90 L 04/27/20 05:01 - Orders/Labs/Meds Orders: Active Orders 24 hr Category Date Time Status EKG Documentation Completion [RC] STAT Care 04/27/20 05:21 Active RT Aerosol Therapy [RC] ASDIRECTED Care 04/27/20 05:21 Active RT Aerosol Therapy [RC] ASDIRECTED Care 04/27/20 05:26 Active CULTURE BLOOD [BC] Stat Lab 04/27/20 05:16 Received Labs: Laboratory Tests 04/27/20 04/27/20 04/27/20 Range/Units 05:16 05:16 05:16 WBC 15.7 H (5.0-10.0) 10^3/uL RBC 5.17 (4.6-6.2) 10^6/uL Hgb 15.4 (14.0-18.0) g/dL Hct 46.3 (40.0-54.0) % MCV 89.6 (80-100) fL MCH 29.8 (27.0-34.0) pg MCHC 33.3 (33.0-35.0) g/dL Plt Count 372 (150-450) 10^3/uL Neut % (Auto) 68.2 (42.2-75.2) % Lymph % (Auto) 13.9 L (20.5-50.1) % [place] % (Auto) 9.1 H (2-8) % Eos % (Auto) 8.5 H (1.0-3.0) % Baso % (Auto) 0.3 (0.0-1.0) % Sodium 141 (136-145) mmol/L Potassium 3.7 (3.5-5.1) mmol/L Chloride 104 (98-107) mmol/L Carbon Dioxide 27 (21-32) mmol/L Anion Gap 13.7 H (7-13) mEq/L BUN 15 (7-18) mg/dL Creatinine 0.97 (0.70-1.30) mg/dL Est Cr Clr Drug Dosing 73.08 mL/min Estimated GFR (MDRD) > 60 BUN/Creatinine Ratio 15.5 (No establ ref range) Glucose 58 L (74-99) mg/dL Lactic Acid 1.6 (0.4-2.0) mmol/L Calcium 8.8 (8.5-10.1) mg/dL Total Bilirubin 0.4 (0.2-1.0) mg/dL AST 14 L (15-37) U/L ALT 19 (16-63) U/L Alkaline Phosphatase 97 (46-116) U/L Troponin I (0.000-0.056) ng/mL C-Reactive Protein (0.0-0.9) mg/dL Total Protein 7.4 (6.4-8.2) g/dL Albumin 3.9 (3.4-5.0) g/dL Globulin 3.5 Albumin/Globulin Ratio 1.1 COVID-19 (NANCY) (NEGATIVE) 04/27/20 04/27/20 Range/Units 05:16 05:40 WBC (5.0-10.0) 10^3/uL RBC (4.6-6.2) 10^6/uL Hgb (14.0-18.0) g/dL Hct (40.0-54.0) % MCV (80-100) fL MCH (27.0-34.0) pg MCHC (33.0-35.0) g/dL Plt Count (150-450) 10^3/uL Neut % (Auto) (42.2-75.2) % Lymph % (Auto) (20.5-50.1) % [place] % (Auto) (2-8) % Eos % (Auto) (1.0-3.0) % Baso % (Auto) (0.0-1.0) % Sodium (136-145) mmol/L Potassium (3.5-5.1) mmol/L Chloride (98-107) mmol/L Carbon Dioxide (21-32) mmol/L Anion Gap (7-13) mEq/L BUN (7-18) mg/dL Creatinine (0.70-1.30) mg/dL Est Cr Clr Drug Dosing mL/min Estimated GFR (MDRD) BUN/Creatinine Ratio (No establ ref range) Glucose (74-99) mg/dL Lactic Acid (0.4-2.0) mmol/L Calcium (8.5-10.1) mg/dL Total Bilirubin (0.2-1.0) mg/dL AST (15-37) U/L ALT (16-63) U/L Alkaline Phosphatase (46-116) U/L Troponin I < 0.017 (0.000-0.056) ng/mL C-Reactive Protein 1.0 H (0.0-0.9) mg/dL Total Protein (6.4-8.2) g/dL Albumin (3.4-5.0) g/dL Globulin Albumin/Globulin Ratio COVID-19 (NANCY) Negative (NEGATIVE) Meds: Medications Discontinued Medications Generic Name Dose Route Start Last Admin Trade Name Freq PRN Reason Stop Dose Admin Albuterol/Ipratropium 3 ml 04/27/20 05:21 04/27/20 05:31 Duoneb 3.0-0.5 Mg/3 Ml NEB 04/27/20 05:22 3 ml ONETIME ONE Administration Budesonide 1 mg 04/27/20 05:25 04/27/20 05:41 Pulmicort NEB 04/27/20 05:26 1 mg ONETIME ONE Administration Doxycycline Hyclate 100 mg 04/27/20 05:30 04/27/20 05:50 Vibramycin PO 04/27/20 05:31 100 mg ONETIME ONE Administration Methylprednisolone Sodium Succinate 125 mg 04/27/20 05:25 04/27/20 05:34 Solu-Medrol IVPUSH 04/27/20 05:26 125 mg ONETIME ONE Administration - Re-Assessments/Exams Free Text/Narrative Re-Assessment/Exam: 04/27/20 06:46 Blood cultures x 2 Solumedrol, duo-neb, budesonide. Doxycycline 100mg PO Requiring oxygen to keep sats up to 92%. CXR with no identified pneumonia. Covid negative. His SOB and symptoms did improve with the above therapy although his oxygen saturation hung around the 88% on RA and with ambulation he would desat down to 78% and became quite winded. 04/27/20 06:54 I called and spoke with Dr Fernando hydro excavation operator for the hospital. HPI ER COURSE findings and concerns were relayed to him verbally over the phone. He accepted the patient in transfer at this time for inpatient care and management for his COPD exacerbation with hypoxia. No new orders. Departure - Departure Time of Disposition: 06:49 Disposition: Admitted As Inpatient 65 Clinical Impression: Acute exacerbation of chronic obstructive pulmonary disease (COPD), Hypoxia - Discharge Information Forms: ED Department Discharge Sepsis Event Note (ED) - Evaluation Sepsis Screening Result: No Definite Risk - Focused Exam Vital Signs: Vital Signs Temp Pulse Resp BP Pulse Ox 04/27/20 05:01 100.8 F H 120 H 20 122/69 90 L - My Orders Last 24 Hours: My Active Orders 04/27/20 05:16 CULTURE BLOOD [BC] Stat 04/27/20 05:21 EKG Documentation Completion [RC] STAT RT Aerosol Therapy [RC] ASDIRECTED 04/27/20 05:26 RT Aerosol Therapy [RC] ASDIRECTED - Assessment/Plan Last 24 Hours: My Active Orders 04/27/20 05:16 CULTURE BLOOD [BC] Stat 04/27/20 05:21 EKG Documentation Completion [RC] STAT RT Aerosol Therapy [RC] ASDIRECTED 04/27/20 05:26 RT Aerosol Therapy [RC] ASDIRECTED Assessment:: COPD exacerbation Hypoxia Plan: Admit inpatient Dr. Fernando inpatient for further care and management.
[2020-04-27 05:45] LABS: ANION GAP 13.7 mEq/L (7-13); CHLORIDE,CL 104 mmol/L (98-107); SODIUM,NA 141 mmol/L (136-145)
--- NOTE | 2020-04-27 06:11 | CR ---
PROCEDURE INFORMATION: Exam: XR Chest, 2 Views Exam date and time: 04/27/2020 5:29 AM Age: 59 years old Clinical indication: Cough and fever and shortness of breath; Additional info: SOB, fever, productive cough TECHNIQUE: Imaging protocol: XR of the chest Views: 2 views. COMPARISON: CR Chest 2V 12/13/2019 9:23 PM FINDINGS: Lungs: Mild pulmonary hyperinflation. Pleural space: Unremarkable. No pleural effusion. No pneumothorax. Heart/Mediastinum: Unremarkable. No cardiomegaly. Bones/joints: Unremarkable. IMPRESSION: No acute findings.
[2020-04-27] MEDS ORDERED: Acetaminophen 325 MG Tab PO PRN (08:51)
[2020-04-27] MEDS ORDERED: Docusate Sodium 100 MG Cap PO PRN (08:51)
[2020-04-27] MEDS ORDERED: Albuterol 0.083% 2.5 MG/3 ML Neb Soln NEB PRN (08:54)
[2020-04-27] MEDS ORDERED: 50% Dextrose in Water 50 ML Syringe IVPUSH PRN (08:58)
--- NOTE | 2020-04-27 10:20 | HP ---
CHIEF COMPLAINT: Increasing shortness of breath. HISTORY OF PRESENTING ILLNESS: Mr. Romero Krens is a 59-year-old male with medical history significant for chronic tobacco use, hyperlipidemia, type 2 diabetes mellitus, chronic obstructive pulmonary disease, who presented to the ER with complaints of increasing shortness of breath. At this time, the patient complains of increasing shortness of breath for the last 3 to 4 days, which has been progressively getting worse. He grades the shortness of breath as 8/10 in intensity, aggravated on exertion, relieved with rest, associated with cough with sputum. He is noted to have greenish yellow phlegm. Denies any chest pains. Noted to have low-grade temperature after coming to the emergency room with 100.8. Complains that his grandson and granddaughter have been sick for the last few days. Denies any recent travel. Denies any sick contacts. Denies any exposure to COVID. Denies any abdominal pain. No complaints of nausea, vomiting, or diarrhea. The patient denied any history of chest pains on exertion. Has mild dyspnea on exertion. No history of orthopnea or paroxysmal nocturnal dyspnea. No history of paroxysmal nocturnal dyspnea. The patient denied any history of hematemesis, hematochezia, or melenic stools. Normal bowel and bladder habits otherwise. REVIEW OF SYSTEMS: A complete review of systems including skin, ear, nose, and throat, cardiovascular system, respiratory system, gastrointestinal system, genitourinary system, hematology, oncology, neurology, constitutional were all evaluated and were negative except for the above-said notes. PAST MEDICAL HISTORY: Significant for: 1. Type 2 diabetes mellitus. 2. Hyperlipidemia. 3. Chronic obstructive pulmonary disease. 4. History of tobacco abuse. PAST SURGICAL HISTORY: Significant for knee arthroscopy. FAMILY HISTORY: Significant for hypertension and diabetes in his mother, heart disease in his father. SUBSTANCE USE/SOCIAL HISTORY: The patient has chronic history of smoking tobacco. He smokes almost a pack a day. History of occasional alcohol use. HOME MEDICATIONS: Include Cymbalta 30 mg daily, trazodone 50 mg at bedtime, metformin 1000 mg twice a day, glyburide 5 mg twice a day, vitamin E 180 units at bedtime, simvastatin 20 mg at bedtime, aspirin 81 mg daily. PHYSICAL EXAMINATION: Vital Signs: Temperature of 100.8, pulse of 120, blood pressure 122/69, respiratory rate of 20, saturating at 90%. General Appearance: The patient is well oriented to time, place, and person. Follows commands spontaneously. Cardiovascular System: S1, S2 heard with normal intensity. No gallops. Respiratory System: Bilateral wheezes noted. No crepitations. Abdomen: Soft. Bowel sounds positive. Nontender. No rigidity. Extremities: No edema in bilateral lower extremities. Neurology: No gross focal neurological deficit. LABORATORY DATA: WBC 15.7, hemoglobin 15.4, hematocrit 46.3, platelet count 372. Sodium 141, potassium 3.7, chloride 104, bicarb 27, BUN 15, creatinine 0.9, glucose 58. Lactic acid 1.6. AST 14, ALT 19, alkaline phosphatase 97. C- reactive protein 1. COVID-19 negative. ASSESSMENT: 1. Acute bronchitis versus early pneumonia. 2. Acute chronic obstructive pulmonary disease exacerbation. 3. Type 2 diabetes mellitus. 4. Hyperlipidemia. 5. Chronic tobacco use. PLAN: 1. Acute COPD exacerbation. The patient presents with increasing shortness of breath and noted to have bilateral wheezes. The patient will be admitted to the hospital. We will start him on nebulizer treatment with DuoNeb and Pulmicort nebulizers. We will start him on IV methylprednisone. The patient will be encouraged to use incentive spirometer and flutter valve for better pulmonary toileting. 2. Possible sepsis. The patient noted to have a temperature of 100.8 with tachycardia, tachypnea, and leukocytosis consistent with possible sepsis. We will follow serial lactic acid levels. 3. Acute bronchitis versus early pneumonia. The patient is complaining of cough with sputum. He was noted to have low-grade temperature. We will obtain a sputum culture, blood culture. We will start him on IV antibiotic, ceftriaxone, and Zithromax. Closely follow. 4. Hypertension. The patient's blood pressure seems to be in acceptable range. Denied any history of hypertension in the past. 5. Type 2 diabetes mellitus. The patient usually on metformin and glyburide. He is noted to have hypoglycemic episodes with low blood sugar. We will check his fingersticks with each meal. Have him on correction dose insulin if needed. Have him on hypoglycemic protocol. Hold metformin while in the hospital. 6. Chronic tobacco use. The patient is educated about tobacco cessation. Strongly encouraged him to quit smoking, which he understands and verbalized the same. He might benefit from nicotine transdermal patch while in the hospital. 7. Code status. The patient wants to be full code. 8. Reviewed the labs and medications. Reviewed the old charts or medical history and is summarized as above. Discussed with Dr. Fernando, accepting physician, regarding the plan of care. [facility] /[id number]
[2020-04-27] MEDS ORDERED: Sodium Chloride 0.9% 1,000 ML IV SCH (10:45)
[2020-04-27] MEDS: methylPREDNISolone Sodium Succinate 40 MG/1 ML SDV IVPUSH SCH ×3 (10:53→21:36)
[2020-04-27] MEDS: Nicotine 7 MG/24 Hr Patch TRDERM SCH (10:54)
[2020-04-27] MEDS: Enoxaparin 40 MG/0.4 ML Syringe SUBCUT SCH (10:55)
[2020-04-27] MEDS: cefTRIAXone 1 GM in Sodium Chloride 0.9% 50 ML IV SCH (10:55)
[2020-04-27] MEDS: Azithromycin 500 MG in Sodium Chloride 0.9% 250 ML IV SCH (11:31)
[2020-04-27] MEDS: DULoxetine 30 MG Cap PO SCH (11:49)
[2020-04-27] MEDS: Aspirin 81 MG Tab.EC PO SCH (11:49)
[2020-04-27] MEDS: Insulin Lispro 100 Units/ML 3 ML Vial SUBCUT SCH ×3 (11:49→21:33)
[2020-04-27] MEDS: Albuterol/Ipratropium 3.0-0.5 MG/3 ML Neb Soln NEB SCH ×2 (15:16→17:31)
[2020-04-27] MEDS: Budesonide 0.5 MG/2 ML Neb Susp NEB SCH (17:31)
[2020-04-27] MEDS ORDERED: VITAMIN E PO SCH (21:00)
[2020-04-27] MEDS ORDERED: Non-Formulary Medication 1 Each (Simvastatin [Simvastatin] 20 MG) PO SCH (21:00)
[2020-04-27] MEDS: traZODone 50 MG Tab PO SCH (21:35)
[2020-04-27] MEDS: Simvastatin 40 MG Tab PO SCH (21:35)
[2020-04-28] MEDS: Albuterol/Ipratropium 3.0-0.5 MG/3 ML Neb Soln NEB SCH ×4 (01:28→17:25)
[2020-04-28] MEDS: methylPREDNISolone Sodium Succinate 40 MG/1 ML SDV IVPUSH SCH ×3 (06:14→22:07)
[2020-04-28] MEDS: glyBURIDE 5 MG Tab PO SCH ×4 (07:23→22:06)
[2020-04-28] MEDS: Budesonide 0.5 MG/2 ML Neb Susp NEB SCH ×2 (07:28→17:25)
[2020-04-28] MEDS: DULoxetine 30 MG Cap PO SCH (09:04)
[2020-04-28] MEDS: Nicotine 7 MG/24 Hr Patch TRDERM SCH (09:04)
[2020-04-28] MEDS: Aspirin 81 MG Tab.EC PO SCH (09:04)
[2020-04-28] MEDS: Insulin Lispro 100 Units/ML 3 ML Vial SUBCUT SCH ×4 (09:05→22:05)
[2020-04-28] MEDS: Enoxaparin 40 MG/0.4 ML Syringe SUBCUT SCH (10:04)
[2020-04-28] MEDS: cefTRIAXone 1 GM in Sodium Chloride 0.9% 50 ML IV SCH (11:09)
--- NOTE | 2020-04-28 11:23 | PCM.PN ---
- General Info Date of Service: 04/28/20 Subjective Update: 59-year-old with a history of diabetes, hypertension, smoking. The patient presented with increasing shortness of breath, wheezing. He was found to have acute COPD exacerbation. Treated with antibiotics, steroids, nebulizers He is still requiring oxygen No associated chest pain. Had temperature of 100.8 prior to admission. Functional Status: Reports: Pain Controlled, Tolerating Diet - Review of Systems General: Denies: Fever Pulmonary: Reports: Shortness of Breath, Cough, Wheezing. Denies: Pleuritic Chest Pain Cardiovascular: Denies: Chest Pain, Edema Gastrointestinal: Denies: Abdominal Pain Genitourinary: Denies: Dysuria Musculoskeletal: Denies: Neck Pain Neurological: Denies: Confusion - Patient Data Vitals - Most Recent: Last Vital Signs Temp 98.9 F 04/28/20 08:00 Pulse 89 04/28/20 08:00 Resp 18 04/28/20 08:00 BP 113/68 04/28/20 08:00 Pulse Ox 91 L 04/28/20 08:03 Weight - Most Recent: 170 lb 6.4 oz I&O - Last 24 Hours: Intake & Output 04/27/20 04/28/20 04/28/20 22:59 06:59 14:59 Intake Total 360 2000 Balance 360 2000 Lab Results Last 24 Hours: Laboratory Results - last 24 hr 04/27/20 04/27/20 04/27/20 Range/Units 11:13 16:10 17:02 POC Glucose 236 H 273 H (70-105) mg/dl Lactic Acid 2.5 H* (0.4-2.0) mmol/L 04/27/20 04/27/20 04/28/20 Range/Units 20:57 22:00 07:45 POC Glucose 233 H 187 H (70-105) mg/dl Lactic Acid 1.9 (0.4-2.0) mmol/L Lopez Results Last 24 Hours: Microbiology 04/27/20 05:16 Aerobic Blood Culture - Preliminary Blood NO GROWTH AFTER 1 DAY Anaerobic Blood Culture - Preliminary NO GROWTH AFTER 1 DAY 04/27/20 20:44 Gram Stain - Final Sputum - Expectorated Med Orders - Current: Current Medications Acetaminophen (Tylenol) 650 mg PO Q4H PRN PRN Reason: Pain (Mild 1-3)/fever Albuterol (Proventil Neb Soln) 2.5 mg NEB Q2H PRN PRN Reason: shortness of breath/wheezing Albuterol/Ipratropium (Duoneb 3.0-0.5 Mg/3 Ml) 3 ml NEB Q6HRRT [facility] Last Admin: 04/28/20 07:24 Dose: 3 ml Documented by: Aspirin (Halfprin) 81 mg PO DAILY [facility] Last Admin: 04/28/20 09:04 Dose: 81 mg Documented by: Budesonide (Pulmicort) 0.5 mg NEB BIDRT [facility] Last Admin: 04/28/20 07:28 Dose: 0.5 mg Documented by: Dextrose/Water (Dextrose 50% In Water) 50 ml IVPUSH ONETIME PRN PRN Reason: Hypoglycemia Docusate Sodium (Colace) 100 mg PO BID PRN PRN Reason: Constipation Duloxetine HCl (Cymbalta) 30 mg PO DAILY [facility] Last Admin: 04/28/20 09:04 Dose: 30 mg Documented by: Enoxaparin Sodium (Lovenox) 40 mg SUBCUT DAILY [facility] Last Admin: 04/28/20 10:04 Dose: 40 mg Documented by: Glyburide (Micronase) 10 mg PO BID [facility] Last Admin: 04/28/20 09:05 Dose: Not Given Documented by: Azithromycin 500 mg/ Sodium (Chloride) 250 mls @ 250 mls/hr IV Q24H [facility] Last Admin: 04/27/20 11:31 Dose: 250 mls/hr Documented by: Ceftriaxone Sodium 1 gm/ (Sodium Chloride) 50 mls @ 100 mls/hr IV Q24H [facility] Last Admin: 04/28/20 11:09 Dose: 100 mls/hr Documented by: Insulin Human Lispro (Humalog) 0 unit SUBCUT WITHMEALSANDBED [facility]; Protocol Last Admin: 04/28/20 09:05 Dose: 1 unit Documented by: Methylprednisolone Sodium Succinate (Solu-Medrol) 60 mg IVPUSH Q8HR [facility] Last Admin: 04/28/20 06:14 Dose: 60 mg Documented by: Miscellaneous Information (Check Patch) 1 ea TRDERM BEDTIME [facility] Last Admin: 04/27/20 21:35 Dose: Not Given Documented by: Nicotine (Habitrol) 7 mg TRDERM DAILY [facility] Last Admin: 04/28/20 09:04 Dose: Not Given Documented by: Simvastatin (Zocor) 40 mg PO BEDTIME [facility] Last Admin: 04/27/20 21:35 Dose: 40 mg Documented by: Trazodone HCl (Trazodone) 50 mg PO BEDTIME [facility] Last Admin: 04/27/20 21:35 Dose: 50 mg Documented by: Discontinued Medications Albuterol/Ipratropium (Duoneb 3.0-0.5 Mg/3 Ml) 3 ml NEB ONETIME ONE Stop: 04/27/20 05:22 Last Admin: 04/27/20 05:31 Dose: 3 ml Documented by: Budesonide (Pulmicort) 1 mg NEB ONETIME ONE Stop: 04/27/20 05:26 Last Admin: 04/27/20 05:41 Dose: 1 mg Documented by: Doxycycline Hyclate (Vibramycin) 100 mg PO ONETIME ONE Stop: 04/27/20 05:31 Last Admin: 04/27/20 05:50 Dose: 100 mg Documented by: Glyburide (Micronase) 5 mg PO BID [facility] Last Admin: 04/28/20 07:23 Dose: Not Given Documented by: Sodium Chloride (Normal Saline) 1,000 mls @ 75 mls/hr IV ASDIRECTED [facility] Stop: 04/27/20 23:59 Last Admin: 04/27/20 11:30 Dose: 75 mls/hr Documented by: Methylprednisolone Sodium Succinate (Solu-Medrol) 125 mg IVPUSH ONETIME ONE Stop: 04/27/20 05:26 Last Admin: 04/27/20 05:34 Dose: 125 mg Documented by: Non-Formulary Medication (Simvastatin [Simvastatin]) 20 mg PO BEDTIME [facility] Last Admin: 04/28/20 07:23 Dose: Not Given Documented by: Non-Formulary Medication (Vitamin E [Vitamin E]) 180 unit PO BEDTIME [facility] Last Admin: 04/28/20 07:24 Dose: Not Given Documented by: - Exam General: Alert, Oriented Neck: Supple Lungs: Normal Respiratory Effort, Decreased Breath Sounds, Wheezing Cardiovascular: Regular Rate, Regular Rhythm GI/Abdominal Exam: Normal Bowel Sounds, Soft, Non-Tender, Other (obese) Extremities: No Pedal Edema Skin: Warm, Dry Neurological: No New Focal Deficit Psy/Mental Status: Alert, Normal Affect, Normal Mood Sepsis Event Note - Evaluation Sepsis Screening Result: No Definite Risk - Focused Exam Vital Signs: Vital Signs Temp Pulse Resp BP Pulse Ox Pulse Ox 04/28/20 08:03 91 L 04/28/20 08:00 98.9 F 89 18 113/68 91 L 04/28/20 07:28 87 91 L Date Exam was Performed: 04/28/20 Time Exam was Performed: 11:24 - Problem List & Annotations (1) COPD exacerbation SNOMED Code(s): 554954579 Code(s): J44.1 - CHRONIC OBSTRUCTIVE PULMONARY DISEASE W (ACUTE) EXACERBATION Status: Acute Current Visit: No (2) Sepsis SNOMED Code(s): 49418902 Code(s): A41.9 - SEPSIS, UNSPECIFIED ORGANISM Status: Acute Current Visit: No (3) Diabetes mellitus type 2 SNOMED Code(s): 77142395 Code(s): E11.9 - TYPE 2 DIABETES MELLITUS WITHOUT COMPLICATIONS Status: Chronic Priority: Medium Current Visit: No - Problem List Review Problem List Initiated/Reviewed/Updated: Yes - My Orders Last 24 Hours: My Active Orders 04/29/20 05:15 BASIC METABOLIC PANEL,BMP [CHEM] AM CBC WITH AUTO DIFF [HEME] AM - Plan Plan:: Presented with increasing shortness of breath, wheezing Acute COPD exacerbation Treat with inhaled Pulmicort, frequent DuoNeb, albuterol as needed for rescue IV steroid, taper Solu-Medrol Acute bronchitis, possible early pneumonia Cultures pending Sputum culture pending Treated with azithromycin, ceftriaxone Possible sepsis With leukocytosis, elevated lactic acid, possible bronchitis, upper respiratory tract infection Lactic acid normalized Diabetes Treat with glipizide Follow blood sugars use supplemental insulin as needed Depression Continue trazodone, Cymbalta DVT prophylaxis with Lovenox
[2020-04-28] MEDS: Azithromycin 500 MG in Sodium Chloride 0.9% 250 ML IV SCH (12:07)
[2020-04-28] MEDS: Simvastatin 40 MG Tab PO SCH (22:08)
[2020-04-28] MEDS: traZODone 50 MG Tab PO SCH (22:08)
[2020-04-29 05:56] LABS: ANION GAP 11.1 mEq/L (7-13); CHLORIDE,CL 103 mmol/L (98-107); SODIUM,NA 138 mmol/L (136-145)
[2020-04-29] MEDS: Albuterol/Ipratropium 3.0-0.5 MG/3 ML Neb Soln NEB SCH ×3 (05:57→13:09)
[2020-04-29] MEDS: methylPREDNISolone Sodium Succinate 40 MG/1 ML SDV IVPUSH SCH (05:57)
[2020-04-29] MEDS: Budesonide 0.5 MG/2 ML Neb Susp NEB SCH (07:21)
[2020-04-29 08:12] VITALS: BP 145/76; PULSE 84
[2020-04-29] MEDS: DULoxetine 30 MG Cap PO SCH (08:33)
[2020-04-29] MEDS: Aspirin 81 MG Tab.EC PO SCH (08:33)
[2020-04-29] MEDS: glyBURIDE 5 MG Tab PO SCH (08:33)
[2020-04-29] MEDS: Insulin Lispro 100 Units/ML 3 ML Vial SUBCUT SCH ×2 (08:34→13:09)
[2020-04-29] MEDS: Nicotine 7 MG/24 Hr Patch TRDERM SCH (08:36)
[2020-04-29] MEDS: Enoxaparin 40 MG/0.4 ML Syringe SUBCUT SCH (09:33)
--- NOTE | 2020-04-29 10:11 | PCM.DCSUM1 ---
Discharge Summary - Hospital Course Free Text/Narrative:: h/o dm, htn, copd, active smoker Presented with increasing shortness of breath, wheezing Acute COPD exacerbation Treated with inhaled Pulmicort, frequent DuoNeb, IV steroid improved has no insurance, long acting formulations are not affordable will start pulmicort nebs cont scheduled and as needed duoneb/albuterol inh Acute bronchitis, possible early pneumonia Cultures pending - negative Treated with azithromycin, ceftriaxone will finish PO azithro Possible sepsis With leukocytosis, elevated lactic acid, possible bronchitis, upper respiratory tract infection Lactic acid normalized Diabetes Treat with glipizide, metformin Depression Continue trazodone, Cymbalta Diagnosis: Stroke: No - Discharge Data Discharge Date: 04/29/20 Discharge Disposition: Home, Self-Care 01 Condition: Good - Referral to Home Health Primary Care Physician: PCP Unobtainable - Discharge Diagnosis/Problem(s) (1) COPD exacerbation SNOMED Code(s): 689970587 ICD Code: J44.1 - CHRONIC OBSTRUCTIVE PULMONARY DISEASE W (ACUTE) EXACERBAT ION Status: Acute Current Visit: No (2) Sepsis SNOMED Code(s): 11439677 ICD Code: A41.9 - SEPSIS, UNSPECIFIED ORGANISM Status: Acute Current Visit: No (3) Diabetes mellitus type 2 SNOMED Code(s): 10467552 ICD Code: E11.9 - TYPE 2 DIABETES MELLITUS WITHOUT COMPLICATIONS Status: Chronic Priority: Medium Current Visit: No - Patient Instructions Diet: Heart Healthy Diet, Diabetic Diet Activity: As Tolerated - Discharge Plan *PRESCRIPTION DRUG MONITORING PROGRAM REVIEWED*: Not Applicable *COPY OF PRESCRIPTION DRUG MONITORING REPORT IN PATIENT ANNEL: Not Applicable Prescriptions/Med Rec: Azithromycin 250 mg PO DAILY 4 Days #4 tablet predniSONE 20 mg PO DAILY 5 Days #5 tab Budesonide [Pulmicort] 0.5 mg NEB BIDRT #60 neb Home Medications: Home Meds Simvastatin 40 mg PO BEDTIME 08/25/14 [History] glyBURIDE [Glyburide] 10 mg PO BID 08/25/14 [History] metFORMIN [Glucophage] 1,000 mg PO BID 08/25/14 [History] Albuterol Sulfate [Albuterol Sulfate HFA] 2 puff INH Q6H PRN 12/23/14 [History] Aspirin [[place] Aspirin EC] 81 mg PO DAILY 12/23/14 [History] Vitamin E 180 unit PO BEDTIME 01/17/18 [History] traZODone HCl [Trazodone HCl] 50 mg PO BEDTIME 10/25/18 [History] Albuterol/Ipratropium [DuoNeb 3.0-0.5 MG/3 ML] 3 ml NEB Q4H PRN #30 neb 12/15/19 [Rx] DULoxetine [Cymbalta] 30 mg PO DAILY 04/27/20 [History] Albuterol/Ipratropium [DuoNeb 3.0-0.5 MG/3 ML] 3 ml NEB Q6HRRT neb 04/29/20 [Rx] Azithromycin 250 mg PO DAILY 4 Days #4 tablet 04/29/20 [Rx] Budesonide [Pulmicort] 0.5 mg NEB BIDRT #60 neb 04/29/20 [Rx] predniSONE 20 mg PO DAILY 5 Days #5 tab 04/29/20 [Rx] Forms: ED Department Discharge Referrals: PCP,Unobtain [Primary Care Provider] - (dr. Stout) - Discharge Summary/Plan Comment DC Time >30 min.: No - General Info Date of Service: 04/29/20 Admission Dx/Problem (Free Text: shortness of breath Subjective Update: 59-year-old with a history of diabetes, hypertension, smoking. The patient presented with increasing shortness of breath, wheezing. He was found to have acute COPD exacerbation. Treated with antibiotics, steroids, nebulizers He is off oxygen No associated chest pain. no more fever Functional Status: Reports: Pain Controlled, Tolerating Diet, Ambulating - Review of Systems General: Denies: Fever, Weakness Pulmonary: Denies: Shortness of Breath Cardiovascular: Denies: Chest Pain, Edema Gastrointestinal: Denies: Abdominal Pain Genitourinary: Denies: Dysuria Neurological: Denies: Confusion - Patient Data Vitals - Most Recent: Last Vital Signs Temp 97.7 F 04/29/20 08:00 Pulse 84 04/29/20 08:00 Resp 16 04/29/20 08:00 BP 145/76 H 04/29/20 08:00 Pulse Ox 90 L 04/29/20 08:00 Weight - Most Recent: 170 lb 6.4 oz I&O - Last 24 hours: Intake & Output 04/28/20 04/29/20 04/29/20 22:59 06:59 14:59 Intake Total 700 Balance 700 Lab Results - Last 24 hrs: Laboratory Results - last 24 hr 04/28/20 04/28/20 04/28/20 Range/Units 11:59 16:36 21:34 WBC (5.0-10.0) 10^3/uL RBC (4.6-6.2) 10^6/uL Hgb (14.0-18.0) g/dL Hct (40.0-54.0) % MCV (80-100) fL MCH (27.0-34.0) pg MCHC (33.0-35.0) g/dL Plt Count (150-450) 10^3/uL Neut % (Auto) (42.2-75.2) % Lymph % (Auto) (20.5-50.1) % Hart % (Auto) (2-8) % Eos % (Auto) (1.0-3.0) % Baso % (Auto) (0.0-1.0) % Sodium (136-145) mmol/L Potassium (3.5-5.1) mmol/L Chloride (98-107) mmol/L Carbon Dioxide (21-32) mmol/L Anion Gap (7-13) mEq/L BUN (7-18) mg/dL Creatinine (0.70-1.30) mg/dL Est Cr Clr Drug Dosing mL/min Estimated GFR (MDRD) Glucose (74-99) mg/dL POC Glucose 203 H 243 H 264 H (70-105) mg/dl Calcium (8.5-10.1) mg/dL 04/29/20 04/29/20 04/29/20 Range/Units 05:30 05:30 07:50 WBC 25.8 H* (5.0-10.0) 10^3/uL RBC 5.00 (4.6-6.2) 10^6/uL Hgb 14.9 (14.0-18.0) g/dL Hct 44.5 (40.0-54.0) % MCV 89.0 (80-100) fL MCH 29.8 (27.0-34.0) pg MCHC 33.5 (33.0-35.0) g/dL Plt Count 383 (150-450) 10^3/uL Neut % (Auto) 90.4 H (42.2-75.2) % Lymph % (Auto) 5.7 L (20.5-50.1) % Hart % (Auto) 3.8 (2-8) % Eos % (Auto) 0.0 L (1.0-3.0) % Baso % (Auto) 0.1 (0.0-1.0) % Sodium 138 (136-145) mmol/L Potassium 4.1 (3.5-5.1) mmol/L Chloride 103 (98-107) mmol/L Carbon Dioxide 28 (21-32) mmol/L Anion Gap 11.1 (7-13) mEq/L BUN 21 H (7-18) mg/dL Creatinine 0.99 (0.70-1.30) mg/dL Est Cr Clr Drug Dosing 71.60 mL/min Estimated GFR (MDRD) > 60 Glucose 216 H (74-99) mg/dL POC Glucose 205 H (70-105) mg/dl Calcium 8.4 L (8.5-10.1) mg/dL [facility]I Results - Last 24 hrs: Microbiology 04/27/20 20:44 Gram Stain - Final Sputum - Expectorated Sputum Culture - Preliminary 04/27/20 05:16 Aerobic Blood Culture - Preliminary Blood NO GROWTH AFTER 2 DAYS Anaerobic Blood Culture - Preliminary NO GROWTH AFTER 2 DAYS Med Orders - Current: Current Medications Acetaminophen (Tylenol) 650 mg PO Q4H PRN PRN Reason: Pain (Mild 1-3)/fever Albuterol (Proventil Neb Soln) 2.5 mg NEB Q2H PRN PRN Reason: shortness of breath/wheezing Albuterol/Ipratropium (Duoneb 3.0-0.5 Mg/3 Ml) 3 ml NEB Q6HRRT [facility] Last Admin: 04/29/20 07:21 Dose: 3 ml Documented by: Aspirin (Halfprin) 81 mg PO DAILY [facility] Last Admin: 04/29/20 08:33 Dose: 81 mg Documented by: Budesonide (Pulmicort) 0.5 mg NEB BIDRT [facility] Last Admin: 04/29/20 07:21 Dose: 0.5 mg Documented by: Dextrose/Water (Dextrose 50% In Water) 50 ml IVPUSH ONETIME PRN PRN Reason: Hypoglycemia Docusate Sodium (Colace) 100 mg PO BID PRN PRN Reason: Constipation Duloxetine HCl (Cymbalta) 30 mg PO DAILY [facility] Last Admin: 04/29/20 08:33 Dose: 30 mg Documented by: Enoxaparin Sodium (Lovenox) 40 mg SUBCUT DAILY [facility] Last Admin: 04/29/20 09:33 Dose: Not Given Documented by: Glyburide (Micronase) 10 mg PO BID [facility] Last Admin: 04/29/20 08:33 Dose: 10 mg Documented by: Azithromycin 500 mg/ Sodium (Chloride) 250 mls @ 250 mls/hr IV Q24H [facility] Last Infusion: 04/28/20 14:27 Dose: Infused Documented by: Ceftriaxone Sodium 1 gm/ (Sodium Chloride) 50 mls @ 100 mls/hr IV Q24H [facility] Last Infusion: 04/28/20 12:11 Dose: Infused Documented by: Insulin Human Lispro (Humalog) 0 unit SUBCUT WITHMEALSANDBED [facility]; Protocol Last Admin: 04/29/20 08:34 Dose: 2 unit Documented by: Methylprednisolone Sodium Succinate (Solu-Medrol) 60 mg IVPUSH Q8HR [facility] Last Admin: 04/29/20 05:57 Dose: 60 mg Documented by: Miscellaneous Information (Check Patch) 1 ea TRDERM BEDTIME [facility] Last Admin: 04/28/20 22:08 Dose: Not Given Documented by: Nicotine (Habitrol) 7 mg TRDERM DAILY [facility] Last Admin: 04/29/20 08:36 Dose: Not Given Documented by: Simvastatin (Zocor) 40 mg PO BEDTIME [facility] Last Admin: 04/28/20 22:08 Dose: 40 mg Documented by: Trazodone HCl (Trazodone) 50 mg PO BEDTIME [facility] Last Admin: 04/28/20 22:08 Dose: 50 mg Documented by: Discontinued Medications Albuterol/Ipratropium (Duoneb 3.0-0.5 Mg/3 Ml) 3 ml NEB ONETIME ONE Stop: 04/27/20 05:22 Last Admin: 04/27/20 05:31 Dose: 3 ml Documented by: Budesonide (Pulmicort) 1 mg NEB ONETIME ONE Stop: 04/27/20 05:26 Last Admin: 04/27/20 05:41 Dose: 1 mg Documented by: Doxycycline Hyclate (Vibramycin) 100 mg PO ONETIME ONE Stop: 04/27/20 05:31 Last Admin: 04/27/20 05:50 Dose: 100 mg Documented by: Glyburide (Micronase) 5 mg PO BID [facility] Last Admin: 04/28/20 07:23 Dose: Not Given Documented by: Sodium Chloride (Normal Saline) 1,000 mls @ 75 mls/hr IV ASDIRECTED [facility] Stop: 04/27/20 23:59 Last Admin: 04/27/20 11:30 Dose: 75 mls/hr Documented by: Methylprednisolone Sodium Succinate (Solu-Medrol) 125 mg IVPUSH ONETIME ONE Stop: 04/27/20 05:26 Last Admin: 04/27/20 05:34 Dose: 125 mg Documented by: Non-Formulary Medication (Simvastatin [Simvastatin]) 20 mg PO BEDTIME [facility] Last Admin: 04/28/20 07:23 Dose: Not Given Documented by: Non-Formulary Medication (Vitamin E [Vitamin E]) 180 unit PO BEDTIME [facility] Last Admin: 04/28/20 07:24 Dose: Not Given Documented by: - Exam Quality Assessment: Denies: Supplemental Oxygen General: Reports: Alert, Oriented Neck: Reports: Supple Lungs: Reports: Normal Respiratory Effort, Decreased Breath Sounds Cardiovascular: Reports: Regular Rate, Regular Rhythm GI/Abdominal Exam: Normal Bowel Sounds, Soft, Non-Tender Extremities: No Pedal Edema
[2020-04-29] MEDS: cefTRIAXone 1 GM in Sodium Chloride 0.9% 50 ML IV SCH (10:12)
[2020-04-29] MEDS ORDERED: Azithromycin 500 MG in Sodium Chloride 0.9% 250 ML IV SCH (11:00)
== END 2020-04-29 12:42 | disposition home or self-care (01) | DRG 871 ==
LOC: DL.ED 04:57 → DL.MS 06:57
PROVIDERS: ADMIT Internal Medicine; ATTEND Internal Medicine
DX: A41.9 Sepsis, unspecified organism (principal); J18.9 Pneumonia, unspecified organism; J44.0 Chronic obstructive pulmonary disease with (acute) lower respiratory infection; J44.1 Chronic obstructive pulmonary disease with (acute) exacerbation; J20.9 Acute bronchitis, unspecified; E11.9 Type 2 diabetes mellitus without complications; F32.9 Major depressive disorder, single episode, unspecified; Z20.828 Contact with and (suspected) exposure to other viral communicable diseases; E78.5 Hyperlipidemia, unspecified; I10 Essential (primary) hypertension; F17.210 Nicotine dependence, cigarettes, uncomplicated; Z79.84 Long term (current) use of oral hypoglycemic drugs; Z79.899 Other long term (current) drug therapy
CPT/HCPCS: 36415; 71046; 80048; 80053; 82962; 83605; 84484; 85025; 86140; 87040; 87070; 87205; 93005; 94640; 96374; 99285-25; A9270-GY; J0456; J0696; J1650; J1815-GY; J2920; J2930; J7030; J7050; J7620-GY; U0002

== ENCOUNTER 2020-05-11 07:53 | Day surgery (SDC) | payer SELFPAY ==
[2020-05-11] MEDS ORDERED: Midazolam 1 MG/ML 2 ML SDV IV ONE (07:54)
[2020-05-11] MEDS ORDERED: Sodium Chloride 0.9% 10 ML Syringe IV ONE (07:54)
[2020-05-11] MEDS ORDERED: Dexamethasone 4 MG/ML SDV IV ONE (07:54)
[2020-05-11] MEDS ORDERED: Phenylephrine 10% Ophth Soln 5 ML Bot EYELF PRN (08:00)
[2020-05-11] MEDS ORDERED: Povidone-Iodine 5% Sterile Ophth Soln 30 ML Bottle EYELF ONE ×2 (08:00→09:10)
[2020-05-11] MEDS ORDERED: Phenylephrine 10% Ophth Soln 5 ML Bot EYELF ONE (08:00)
[2020-05-11] MEDS ORDERED: Moxifloxacin 0.5% Ophth Soln 3 ML Bottle EYELF ONE (08:00)
[2020-05-11] MEDS ORDERED: Ondansetron 4 MG/2 ML SDV IVPUSH PRN (08:00)
[2020-05-11] MEDS ORDERED: Timolol Maleate 0.5% Ophth Soln 5 ML Bottle EYELF ONE (08:00)
[2020-05-11] MEDS ORDERED: Tropicamide 1% Ophth Soln 15 ML Bottle EYELF ONE (08:00)
[2020-05-11] MEDS ORDERED: Acetaminophen 325 MG Tab PO PRN (08:00)
[2020-05-11] MEDS ORDERED: Proparacaine 0.5% Ophth Soln 15 ML Bottle EYELF ONE (08:00)
[2020-05-11] MEDS ORDERED: Cataract Ophth Solution EYELF ONE (08:00)
[2020-05-11] MEDS ORDERED: Sodium Chloride 0.9% 10 ML Syringe FLUSH PRN (08:00)
[2020-05-11] MEDS ORDERED: Lidocaine 1% 30 ML SDV ONE (09:09)
[2020-05-11] MEDS ORDERED: Tetracaine HCl/PF 0.5% 4 ML Bottle EYELF ONE (09:09)
[2020-05-11] MEDS ORDERED: Diclofenac Sodium 0.1% Ophth Soln 5 ML Bottle EYELF ONE (09:10)
[2020-05-11] MEDS ORDERED: Dexamethasone/Neomycin/Polymyxin B Ophth Oint 3.5 GM Tube EYELF ONE (09:10)
[2020-05-11] MEDS ORDERED: Apraclonidine 0.5% Ophth Soln 5 ML Bot EYELF ONE (09:10)
[2020-05-11] MEDS ORDERED: Trypan Blue 0.06% Ophth Soln 0.5 ML Syringe EYELF ONE (09:11)
[2020-05-11] MEDS ORDERED: Balanced Salt Solution Ophth Irrig 500 ML Bottle IOCULAR ONE (09:11)
[2020-05-11] MEDS ORDERED: Vancomycin 500 MG SDV EYELF ONE (09:11)
[2020-05-11] MEDS ORDERED: Chondroitin Sulfate/Hyaluronate Sodium Ophth Inj 0.75 ML Syringe EYELF ONE (09:11)
[2020-05-11] MEDS ORDERED: Dexamethasone 4 MG/ML SDV IOCULAR ONE (09:14)
[2020-05-11 12:48] VITALS: BP 159/72; PULSE 64
--- NOTE | 2020-05-11 15:34 | OR ---
DATE: 05/11/2020 PROCEDURE PERFORMED: Complex mature cataract, left eye with Trypan blue. PREOPERATIVE DIAGNOSIS: Advanced cataract. POSTOPERATIVE DIAGNOSIS: Advanced cataract. ANESTHESIA: Local MAC. INDICATION: The patient was seen in the clinic. Examination revealed advanced cataract. I explained options, offered cataract surgery and I explained risks, including, but not limited to, infection, retinal detachment, loss of vision, need for additional surgery, and risks associated with anesthesia. We discussed implant options. He has requested a monofocal implant. DESCRIPTION OF PROCEDURE: After informed consent was obtained and the risks, benefits, and alternatives were explained, the patient was brought to the OR and topical anesthesia was administered. He was prepped and draped in a sterile fashion. Attention was placed on the left eye. A sterile lid speculum was placed in the left eye. A full-thickness paracentesis was then made temporally. Preservative-free lidocaine followed by viscoelastic was injected into the anterior chamber. A 2.75 mm corneal incision was then made temporally. Red reflex was limited. I injected Trypan blue into the anterior chamber, staining the anterior capsule. Trypan was left in position for 45 seconds. Additional Viscoat was then injected to promote egress of the Trypan blue. A bent needle cystotome was then used to create a small felicitas in the anterior capsule. 5.5 mm curvilinear capsulorrhexis was created. The nucleus was then hydrodissected and hydrodelineated, decompressed centrally, rotated, noted to be free of any adhesions. The nucleus was then removed using a quick chop technique. Following nucleus removal, the remaining cortical material was removed using the irrigation-aspiration handpiece. Additional Viscoat was then injected into the capsular bag. Intra-ocular lens was inserted. The remaining Viscoat was then aspirated from both the anterior and posterior chambers and the posterior surface of the intra-ocular lens. The wound and paracentesis sites were hydrated. 0.1 mL of preservative-free vancomycin was injected intracamerally. Intra-ocular pressure was assessed and found to be in the high normal range. The intra-ocular lens was clear and well centered. Wound and paracentesis sites were Therese negative. Postoperative medications were administered. Sterile patch and shield were placed over the eye. The patient was awakened from light sedation and transported to the postoperative recovery area having tolerated the procedure well. No complications occurred. [facility] /[id number]
== END 2020-05-11 10:29 | disposition home or self-care (01) ==
LOC: DL.SDS 07:53
PROVIDERS: ATTEND Ophthalmology
DX: E11.36 Type 2 diabetes mellitus with diabetic cataract (principal); H25.89 Other age-related cataract; J44.9 Chronic obstructive pulmonary disease, unspecified; E78.5 Hyperlipidemia, unspecified; F17.210 Nicotine dependence, cigarettes, uncomplicated; Z79.82 Long term (current) use of aspirin; Z79.84 Long term (current) use of oral hypoglycemic drugs; Z79.899 Other long term (current) drug therapy
CPT/HCPCS: 00142; 66982; A9270; J1100; J2001; J2250; J3370; V2632

== ENCOUNTER 2020-10-01 14:33 | Emergency (ER) | payer OTHER, SELFPAY ==
[2020-10-01 16:59] VITALS: BP 142/83; PULSE 99
[2020-10-01 17:51] LABS: ANION GAP 11.1 mEq/L (7-13); CHLORIDE,CL 100 mmol/L (98-107); SODIUM,NA 136 mmol/L (136-145)
[2020-10-01] MEDS ORDERED: Iopamidol 612 MG/ML 100 ML Bottle IVPUSH ONE (18:03)
[2020-10-01] MEDS ORDERED: Albuterol/Ipratropium 3.0-0.5 MG/3 ML Neb Soln NEB ONE (18:11)
[2020-10-01] MEDS ORDERED: Dexamethasone 4 MG/ML SDV IVPUSH ONE (18:11)
[2020-10-01] MEDS ORDERED: cefTRIAXone 1 GM in Sodium Chloride 0.9% 50 ML IV ONE (18:12)
--- NOTE | 2020-10-01 20:07 | CT ---
PROCEDURE INFORMATION: Exam: CT Chest With Contrast; Diagnostic Exam date and time: 10/01/2020 7:38 PM Age: 60 years old Clinical indication: Cough and other: Wbc 17,300; Additional info: Bloody sputum TECHNIQUE: Imaging protocol: Diagnostic computed tomography of the chest with intravenous contrast. Radiation optimization: All CT scans at this facility use at least one of these dose optimization techniques: automated exposure control; mA and/or kV adjustment per patient size (includes targeted exams where dose is matched to clinical indication); or iterative reconstruction. Contrast material: [id number]; Contrast volume: 75 ml; Contrast route: INTRAVENOUS (IV); COMPARISON: CT Chest w Cont 08/30/2020 2:01 PM FINDINGS: Lungs: Nodular airspace density is present within the left lower lobe seen on image number 38 of series 4. This was not present on the previous examination and could represent early pneumonia or an area of pulmonary alveolar hemorrhage. Chronic appearing interstitial changes are present elsewhere. Pleural space: Unremarkable. No pneumothorax. No pleural effusion. Heart: Mild coronary atherosclerosis is noted. Aorta: Unremarkable. No aortic aneurysm. Lymph nodes: Mildly prominent bilateral hilar lymph nodes are identified. These could be reactive in nature. Attention on follow-up suggested. Bones/joints: Unremarkable. No acute fracture. Soft tissues: Unremarkable. IMPRESSION: 1. New area of focal area of airspace opacity with nodular character in the left lower lobe. Finding is nonspecific. This could represent early pneumonia. This was not present on the previous examination performed approximately 1 month ago. This is unlikely to represent a pulmonary nodule. Pulmonary alveolar hemorrhage is possible. 2. Mildly prominent hilar lymph nodes left greater than right. These are likely reactive in nature.
[2020-10-01] MEDS ORDERED: Azithromycin 250 MG Tab PO ONE (20:38)
--- NOTE | 2020-10-07 17:08 | EDM.PDOC ---
Scribed by Sapphire Hernandez 10/01/202036 for Tierney Ricci PA-C ED HPI GENERAL MEDICAL PROBLEM - General Chief Complaint: Respiratory Problem Stated Complaint: COUGHING UP BLOOD CANT BREATH Time Seen by Provider: 10/01/20 17:16 Source of Information: Reports: Patient, RN, RN Notes Reviewed History Limitations: Reports: No Limitations - History of Present Illness INITIAL COMMENTS - FREE TEXT/NARRATIVE: Patient is a 60-year-old male who presents to ER with complaint of increased shortness of breath and spitting up bloody sputum x3 today. Patient states history of COPD, but does not use oxygen at home. States his co-workers had COVID. He has not been tested since January. He has had fever, headache, cough and shortness of breath. No chills, chest pains, nausea, vomiting or diarrhea. States he has never had chest CT. Denies history of lung CA. Onset: Today Duration: Getting Worse Location: Reports: Chest Severity: Severe Improves with: Reports: None Worsens with: Reports: None Associated Symptoms: Reports: No Other Symptoms - Related Data Allergies Allergy/AdvReac Type Severity Reaction Status Date / Time No Known Allergies Allergy Verified 10/01/20 17:10 Home Meds: Home Meds Simvastatin 40 mg PO BEDTIME 08/25/14 [History] glyBURIDE [Glyburide] 10 mg PO BID 08/25/14 [History] metFORMIN [Glucophage] 1,000 mg PO BID 08/25/14 [History] Albuterol Sulfate [Albuterol Sulfate HFA] 2 puff INH Q6H PRN 12/23/14 [History] Aspirin [Falls Aspirin EC] 81 mg PO DAILY 12/23/14 [History] Vitamin E 180 unit PO BEDTIME 01/17/18 [History] traZODone HCl [Trazodone HCl] 50 mg PO BEDTIME 10/25/18 [History] Albuterol/Ipratropium [DuoNeb 3.0-0.5 MG/3 ML] 3 ml NEB Q4H PRN #30 neb 12/15/19 [Rx] DULoxetine [Cymbalta] 30 mg PO DAILY 04/27/20 [History] predniSONE 20 mg PO DAILY 5 Days #5 tab 04/29/20 [Rx] Ibuprofen [Motrin] 600 mg PO ASDIRECTED 05/10/20 [History] Ketorolac [Acular 0.5% Ophth Soln] 1 drop EYELF ASDIRECTED 05/10/20 [History] Moxifloxacin HCl [Moxifloxacin] 1 drop EYELF ASDIRECTED 05/10/20 [History] Prednisolone Acetate/Pf [Prednisolone Acet 1% Eye Drop] 1 drop EYELF ASDIRECTED 05/10/20 [History] Past Medical History HEENT History: Reports: Cataract, Impaired Vision Other HEENT History: UPPER DENTURES Cardiovascular History: Reports: High Cholesterol, SOB on Exertion Respiratory History: Reports: Bronchitis, Recurrent, COPD, SOB Gastrointestinal History: Reports: None Genitourinary History: Reports: None Musculoskeletal History: Reports: Arthritis, Back Pain, Chronic, Osteoarthritis Neurological History: Reports: Neuropathy, Peripheral Psychiatric History: Reports: None Endocrine/Metabolic History: Reports: Diabetes, Type II Hematologic History: Reports: None Immunologic History: Reports: None Oncologic (Cancer) History: Reports: None Dermatologic History: Reports: None - Infectious Disease History Infectious Disease History: Reports: Chicken Pox, Measles, Mumps - Past Surgical History Head Surgeries/Procedures: Reports: None HEENT Surgical History: Reports: Cataract Surgery, Oral Surgery Cardiovascular Surgical History: Reports: None Respiratory Surgical History: Reports: None GI Surgical History: Reports: None Male Surgical History: Reports: None Endocrine Surgical History: Reports: None Neurological Surgical History: Reports: None Musculoskeletal Surgical History: Reports: Arthroscopic Knee Oncologic Surgical History: Reports: None Dermatological Surgical History: Reports: None Social & Family History - Family History Family Medical History: No Pertinent Family History Other Respiratory Family Hisory: father from lung cancer Endocrine/Metabolic: Reports: Diabetes, type II Other Endocrine/Metabolic Family History: mother has DM and possibley hypercholesterolemia - Tobacco Use Tobacco Use Status *Q: Current Every Day Tobacco User Years of Tobacco use: 50 Packs/Tins Daily: 0.5 - Caffeine Use Caffeine Use: Reports: Coffee Other Caffeine Use: 24 cups daily - Recreational Drug Use Recreational Drug Use: No - Living Situation & Occupation Living situation: Reports: ED ROS GENERAL - Review of Systems Review Of Systems: Comprehensive ROS is negative, except as noted in HPI. ED EXAM, GENERAL - Physical Exam Exam: See Below Exam Limited By: No Limitations General Appearance: Moderate Distress Eye Exam: Bilateral Eye: EOMI, Normal Inspection, PERRL Ears: Normal External Exam, Normal Canal, Hearing Grossly Normal, Normal TMs Nose: Normal Inspection, Normal Mucosa, No Blood Throat/Mouth: Other (false teeth uppers) Head: Atraumatic, Normocephalic Neck: Normal Inspection Respiratory/Chest: Crackles (throughout), Wheezing (throughout.), Other (decreased breath sounds) Cardiovascular: Normal Peripheral Pulses, Regular Rate, Rhythm, No Edema, No Gallop, No JVD, No Murmur, No Rub GI/Abdominal: Normal Bowel Sounds, Soft, Non-Tender, No Organomegaly, No Distention, No Abnormal Bruit, No Mass (Male) Exam: Deferred Rectal (Males) Exam: Deferred Back Exam: Normal Inspection, Full Range of Motion, NT Extremities: Normal Inspection, Normal Range of Motion, Non-Tender, Normal Capillary Refill, No Pedal Edema Neurological: Alert, Oriented, CN II-XII Intact, Normal Cognition, Normal Gait, Normal Reflexes, No Motor/Sensory Deficits Psychiatric: Normal Affect, Normal Mood Skin Exam: Warm, Dry, Intact, Normal Color, No Rash Lymphatic: No Adenopathy Course - Vital Signs Last Recorded V/S: Last Vital Signs Temp 98.1 F 10/01/20 16:58 Pulse 99 10/01/20 16:58 Resp 12 10/01/20 16:58 BP 142/83 H 10/01/20 16:58 Pulse Ox 92 L 10/01/20 16:58 - Orders/Labs/Meds Labs: Laboratory Tests 10/01/20 10/01/20 10/01/20 Range/Units 17:21 17:21 17:21 WBC 17.3 H (5.0-10.0) 10^3/uL RBC 5.02 (4.6-6.2) 10^6/uL Hgb 15.3 (14.0-18.0) g/dL Hct 44.6 (40.0-54.0) % MCV 88.8 (80-100) fL MCH 30.5 (27.0-34.0) pg MCHC 34.3 (33.0-35.0) g/dL Plt Count 353 (150-450) 10^3/uL Neut % (Auto) 67.6 (42.2-75.2) % Lymph % (Auto) 17.2 L (20.5-50.1) % [place] % (Auto) 9.7 H (2-8) % Eos % (Auto) 5.2 H (1.0-3.0) % Baso % (Auto) 0.3 (0.0-1.0) % PT 10.6 (9.0-12.0) SEC INR 1.1 (0.9-1.2) D-Dimer, Quantitative < 100 (0-400) ng/mL Sodium 136 (136-145) mmol/L Potassium 4.1 (3.5-5.1) mmol/L Chloride 100 (98-107) mmol/L Carbon Dioxide 29 (21-32) mmol/L Anion Gap 11.1 (7-13) mEq/L BUN 13 (7-18) mg/dL Creatinine 0.84 (0.70-1.30) mg/dL Est Cr Clr Drug Dosing 83.34 mL/min Estimated GFR (MDRD) > 60 BUN/Creatinine Ratio 15.5 (No establ ref range) Glucose 153 H (74-99) mg/dL Lactic Acid (0.4-2.0) mmol/L Calcium 9.2 (8.5-10.1) mg/dL Total Bilirubin 0.5 (0.2-1.0) mg/dL AST 8 L (15-37) U/L ALT 19 (16-63) U/L Alkaline Phosphatase 108 (46-116) U/L Lactate Dehydrogenase 98 (85-227) U/L Troponin I < 0.017 (0.000-0.056) ng/mL C-Reactive Protein 4.3 H (0.0-0.9) mg/dL B-Natriuretic Peptide < 5 (0-100) pg/ml Total Protein 7.4 (6.4-8.2) g/dL Albumin 3.9 (3.4-5.0) g/dL Globulin 3.5 Albumin/Globulin Ratio 1.1 SARS-CoV-2 RNA (NNACY) (NEGATIVE) 10/01/20 10/01/20 Range/Units 17:21 18:10 WBC (5.0-10.0) 10^3/uL RBC (4.6-6.2) 10^6/uL Hgb (14.0-18.0) g/dL Hct (40.0-54.0) % MCV (80-100) fL MCH (27.0-34.0) pg MCHC (33.0-35.0) g/dL Plt Count (150-450) 10^3/uL Neut % (Auto) (42.2-75.2) % Lymph % (Auto) (20.5-50.1) % [place] % (Auto) (2-8) % Eos % (Auto) (1.0-3.0) % Baso % (Auto) (0.0-1.0) % PT (9.0-12.0) SEC INR (0.9-1.2) D-Dimer, Quantitative (0-400) ng/mL Sodium (136-145) mmol/L Potassium (3.5-5.1) mmol/L Chloride (98-107) mmol/L Carbon Dioxide (21-32) mmol/L Anion Gap (7-13) mEq/L BUN (7-18) mg/dL Creatinine (0.70-1.30) mg/dL Est Cr Clr Drug Dosing mL/min Estimated GFR (MDRD) BUN/Creatinine Ratio (No establ ref range) Glucose (74-99) mg/dL Lactic Acid 0.7 (0.4-2.0) mmol/L Calcium (8.5-10.1) mg/dL Total Bilirubin (0.2-1.0) mg/dL AST (15-37) U/L ALT (16-63) U/L Alkaline Phosphatase (46-116) U/L Lactate Dehydrogenase (85-227) U/L Troponin I (0.000-0.056) ng/mL C-Reactive Protein (0.0-0.9) mg/dL B-Natriuretic Peptide (0-100) pg/ml Total Protein (6.4-8.2) g/dL Albumin (3.4-5.0) g/dL Globulin Albumin/Globulin Ratio SARS-CoV-2 RNA (NANCY) Negative (NEGATIVE) Meds: Medications Discontinued Medications Generic Name Dose Route Start Last Admin Trade Name Freq PRN Reason Stop Dose Admin Albuterol/Ipratropium 3 ml 10/01/20 18:11 10/01/20 19:51 Duoneb 3.0-0.5 Mg/3 Ml NEB 10/01/20 18:12 3 ml ONETIME ONE Administration Azithromycin 500 mg 10/01/20 20:38 10/01/20 20:57 Zithromax PO 10/01/20 20:39 500 mg ONETIME ONE Administration Dexamethasone 6 mg 10/01/20 18:11 10/01/20 19:51 Decadron IVPUSH 10/01/20 18:12 6 mg ONETIME ONE Administration Ceftriaxone Sodium 1 gm/ 50 mls @ 100 mls/hr 10/01/20 18:12 10/01/20 19:51 Sodium Chloride IV 10/01/20 18:41 100 mls/hr ONETIME ONE Administration Iopamidol 100 ml 10/01/20 18:03 10/01/20 19:19 Isovue-300 (61%) IVPUSH 10/01/20 18:04 100 ml ONETIME ONE Administration - Re-Assessments/Exams Free Text/Narrative Re-Assessment/Exam: 10/01/20 20:39 Has pulmonology appointment in [place] scheduled. Feels he is 85-90% back to baseline and requesting to go home. TC Dr Stout, will see in follow up in clinic. Departure - Departure Time of Disposition: 20:33 Disposition: Home, Self-Care 01 Condition: Good Clinical Impression: Pneumonia, Hemoptysis, unspecified, COPD, Moderate chronic obstructive pulmonary disease - Discharge Information *PRESCRIPTION DRUG MONITORING PROGRAM REVIEWED*: No *COPY OF PRESCRIPTION DRUG MONITORING REPORT IN PATIENT ANNEL: No Instructions: Chronic Obstructive Pulmonary Disease Exacerbation, [id number], Hemoptysis, Community-Acquired Pneumonia, Adult, [id number] Referrals: Juliocesar Stout MD [Primary Care Provider] - Forms: ED Department Discharge Additional Instructions: zaithromycin 250mg one daily for 4 days use nebulizer at home- albuterol every 4 hours as needed duoneb 2-3 times daily as needed dexamethasone 6mg daily for one week clinic follow up on Saturday Follow up with pulmonology as scheduled in October Emergent follow up if difficulty breathing, coughing up bright red blood, or develop fever Sepsis Event Note (ED) - Evaluation Sepsis Screening Result: No Definite Risk I have read and agree with the documentation that has been completed regarding this visit. By signing this record, I attest that the documentation was completed in my physical presence and is an accurate record of the encounter.
== END 2020-10-01 21:24 | disposition home or self-care (01) ==
LOC: DL.ED 14:33
DX: J18.9 Pneumonia, unspecified organism (principal); J44.9 Chronic obstructive pulmonary disease, unspecified; E78.00 Pure hypercholesterolemia, unspecified; M19.90 Unspecified osteoarthritis, unspecified site; E11.42 Type 2 diabetes mellitus with diabetic polyneuropathy; F17.210 Nicotine dependence, cigarettes, uncomplicated; Z79.899 Other long term (current) drug therapy; Z79.82 Long term (current) use of aspirin; Z20.828 Contact with and (suspected) exposure to other viral communicable diseases
CPT/HCPCS: 36415; 71260; 80053; 83605; 83615; 83880; 84484; 85025; 85379; 85610; 86140; 87635; 93005; 96365; 96375; 99284; 99285; A9270; J0696; J1100; J7050; Q9967; J7620-GY; U0002

== ENCOUNTER 2020-10-19 12:42 | Emergency (ER) | payer OTHER, SELFPAY ==
[2020-10-19 13:14] VITALS: BP 135/69; PULSE 95
--- NOTE | 2020-10-19 13:49 | EDM.PDOC ---
ED HPI GENERAL MEDICAL PROBLEM - General Chief Complaint: Diabetic Complaint Stated Complaint: HIGH BLOOD SUGAR 335 Time Seen by Provider: 10/19/20 13:51 Source of Information: Reports: Patient, RN, RN Notes Reviewed History Limitations: Reports: No Limitations - History of Present Illness INITIAL COMMENTS - FREE TEXT/NARRATIVE: Patient presents to the ED via personal vehicle with complaints of elevated blood sugars. The patient states he has been feeling unwell since 10/17/2020, and was seen in the clinic by his PCP. He was started on Augmentin and a Zpack for symptoms of fever, fatigue, headache, cough, sore throat, and shortness of breath. He states he has been taking these medications with no improvement of these symptoms and is now concerned about blood sugars that have increased to 280s; his blood sugars are normally 150-160. He states he was not screened for COVID this past Saturday and has not had a COVID infection this past year. He denies vision changes, sinus pain/pressure/drainage, chest pain, palpitations, dyspepsia, nausea, vomiting, diarrhea, melena, or hematochezia. He attests to a history of COPD and asthma; he currently smokes about one pack of cigarettes per day. He denies alcohol or recreational drug use. Generalized Pain Score (Numeric/FACES): 6 - Related Data Allergies Allergy/AdvReac Type Severity Reaction Status Date / Time No Known Allergies Allergy Verified 10/19/20 13:15 Home Meds: Home Meds Simvastatin 40 mg PO BEDTIME 08/25/14 [History] glyBURIDE [Glyburide] 5 mg PO BID 08/25/14 [History] metFORMIN [Glucophage] 1,000 mg PO BID 08/25/14 [History] Albuterol Sulfate [Albuterol Sulfate HFA] 2 puff INH Q6H PRN 12/23/14 [History] Aspirin [[place] Aspirin EC] 81 mg PO DAILY 12/23/14 [History] Vitamin E 180 unit PO BEDTIME 01/17/18 [History] traZODone HCl [Trazodone HCl] 50 mg PO BEDTIME 10/25/18 [History] Albuterol/Ipratropium [DuoNeb 3.0-0.5 MG/3 ML] 3 ml NEB Q4H PRN #30 neb 12/15/19 [Rx] DULoxetine [Cymbalta] 30 mg PO DAILY 04/27/20 [History] predniSONE 20 mg PO DAILY 5 Days #5 tab 04/29/20 [Rx] Ibuprofen [Motrin] 600 mg PO ASDIRECTED 05/10/20 [History] Ketorolac [Acular 0.5% Ophth Soln] 1 drop EYELF ASDIRECTED 05/10/20 [History] Moxifloxacin HCl [Moxifloxacin] 1 drop EYELF ASDIRECTED 05/10/20 [History] Prednisolone Acetate/Pf [Prednisolone Acet 1% Eye Drop] 1 drop EYELF ASDIRECTED 05/10/20 [History] Amoxicillin/Potassium Clav [Amox-Clav 875-125 mg Tablet] 1 tab PO BID 10/19/20 [History] Past Medical History HEENT History: Reports: Cataract, Impaired Vision Other HEENT History: UPPER DENTURES Cardiovascular History: Reports: High Cholesterol, SOB on Exertion Respiratory History: Reports: Bronchitis, Recurrent, COPD, SOB Gastrointestinal History: Reports: None Genitourinary History: Reports: None Musculoskeletal History: Reports: Arthritis, Back Pain, Chronic, Osteoarthritis Neurological History: Reports: Neuropathy, Peripheral Psychiatric History: Reports: None Endocrine/Metabolic History: Reports: Diabetes, Type II Hematologic History: Reports: None Immunologic History: Reports: None Oncologic (Cancer) History: Reports: None Dermatologic History: Reports: None - Infectious Disease History Infectious Disease History: Reports: Chicken Pox, Measles, Mumps - Past Surgical History Head Surgeries/Procedures: Reports: None HEENT Surgical History: Reports: Cataract Surgery, Oral Surgery Cardiovascular Surgical History: Reports: None Respiratory Surgical History: Reports: None GI Surgical History: Reports: None Male Surgical History: Reports: None Endocrine Surgical History: Reports: None Neurological Surgical History: Reports: None Musculoskeletal Surgical History: Reports: Arthroscopic Knee Oncologic Surgical History: Reports: None Dermatological Surgical History: Reports: None Social & Family History - Family History Family Medical History: No Pertinent Family History Other Respiratory Family Hisory: father from lung cancer Endocrine/Metabolic: Reports: Diabetes, type II Other Endocrine/Metabolic Family History: mother has DM and possibley hypercholesterolemia - Tobacco Use Tobacco Use Status *Q: Current Every Day Tobacco User Years of Tobacco use: 45 Packs/Tins Daily: 0.7 - Caffeine Use Caffeine Use: Reports: Coffee Other Caffeine Use: 24 cups daily - Recreational Drug Use Recreational Drug Use: No - Living Situation & Occupation Living situation: Reports: ED ROS GENERAL - Review of Systems Review Of Systems: Comprehensive ROS is negative, except as noted in HPI. ED EXAM GENERAL NO PERIP PULSE - Physical Exam Exam: See Below Exam Limited By: No Limitations General Appearance: Alert, WD/WN, No Apparent Distress Eye Exam: Bilateral Eye: EOMI, Normal Inspection, PERRL (3mm) Nose: Normal Inspection. No: Nasal Tenderness, Nasal Swelling, Nasal Drainage Throat/Mouth: Normal Inspection, Normal Voice, No Airway Compromise, Inflammation (Posterior oropharynx erythema) Head: Atraumatic, Normocephalic Neck: Normal Inspection, Supple, Non-Tender, Full Range of Motion Respiratory/Chest: Chest Non-Tender, Rhonchi (To bilateral lobes), Wheezing (Inspiratory and expiratory ). No: Crackles, Rales, Stridor Cardiovascular: Normal Peripheral Pulses, Regular Rate, Rhythm, No Edema, No Gallop, No JVD, No Murmur, No Rub GI/Abdominal: Normal Bowel Sounds, Soft, Non-Tender, No Distention, No Mass, Pelvis Stable (Male) Exam: Deferred Rectal (Males) Exam: Deferred Back Exam: Normal Inspection, Full Range of Motion Extremities: Normal Inspection, Normal Range of Motion, Non-Tender, No Pedal Edema, Normal Capillary Refill Neurological: Alert, Oriented, CN II-XII Intact, Normal Cognition, Normal Gait, No Motor/Sensory Deficits Psychiatric: Normal Affect, Normal Mood Skin Exam: Warm, Dry, Intact, Normal Color, No Rash. No: Ecchymosis, Erythema, Excoriations, Jaundice, Mottled, Pallor Course - Vital Signs Last Recorded V/S: Last Vital Signs Temp 99.1 F 10/19/20 13:06 Pulse 95 10/19/20 13:06 Resp 18 10/19/20 13:06 BP 135/69 10/19/20 13:06 Pulse Ox 91 L 10/19/20 13:06 - Orders/Labs/Meds Orders: Active Orders 24 hr Category Date Time Status Chest 1V Frontal [CR] Urgent Exams 10/19/20 14:29 Taken REFLEX LACTIC ACID YES OR NO [CHEM] Routine Lab 10/19/20 14:18 Received UA RFX LAI AND CULT IF INDIC [URIN] Stat Lab 10/19/20 13:37 Ordered Labs: Laboratory Tests 10/19/20 10/19/20 10/19/20 Range/Units 13:07 13:38 13:48 WBC 7.3 (5.0-10.0) 10^3/uL RBC 4.87 (4.6-6.2) 10^6/uL Hgb 14.8 (14.0-18.0) g/dL Hct 43.3 (40.0-54.0) % MCV 88.9 (80-100) fL MCH 30.4 (27.0-34.0) pg MCHC 34.2 (33.0-35.0) g/dL Plt Count 292 (150-450) 10^3/uL Neut % (Auto) 64.6 (42.2-75.2) % Lymph % (Auto) 19.3 L (20.5-50.1) % [place] % (Auto) 10.4 H (2-8) % Eos % (Auto) 5.6 H (1.0-3.0) % Baso % (Auto) 0.1 (0.0-1.0) % Sodium (136-145) mmol/L Potassium (3.5-5.1) mmol/L Chloride (98-107) mmol/L Carbon Dioxide (21-32) mmol/L Anion Gap (7-13) mEq/L BUN (7-18) mg/dL Creatinine (0.70-1.30) mg/dL Est Cr Clr Drug Dosing mL/min Estimated GFR (MDRD) BUN/Creatinine Ratio (No establ ref range) Glucose (74-99) mg/dL POC Glucose 287 H (70-105) mg/dl Lactic Acid (0.4-2.0) mmol/L Calcium (8.5-10.1) mg/dL Magnesium (1.8-2.4) mg/dL Total Bilirubin (0.2-1.0) mg/dL AST (15-37) U/L ALT (16-63) U/L Alkaline Phosphatase (46-116) U/L Troponin I (0.000-0.056) ng/mL C-Reactive Protein (0.0-0.9) mg/dL Total Protein (6.4-8.2) g/dL Albumin (3.4-5.0) g/dL Globulin Albumin/Globulin Ratio SARS-CoV-2 RNA (NANCY) Positive H (NEGATIVE) 10/19/20 10/19/20 Range/Units 13:48 13:48 WBC (5.0-10.0) 10^3/uL RBC (4.6-6.2) 10^6/uL Hgb (14.0-18.0) g/dL Hct (40.0-54.0) % MCV (80-100) fL MCH (27.0-34.0) pg MCHC (33.0-35.0) g/dL Plt Count (150-450) 10^3/uL Neut % (Auto) (42.2-75.2) % Lymph % (Auto) (20.5-50.1) % [place] % (Auto) (2-8) % Eos % (Auto) (1.0-3.0) % Baso % (Auto) (0.0-1.0) % Sodium 137 (136-145) mmol/L Potassium 3.9 (3.5-5.1) mmol/L Chloride 101 (98-107) mmol/L Carbon Dioxide 28 (21-32) mmol/L Anion Gap 11.9 (7-13) mEq/L BUN 11 (7-18) mg/dL Creatinine 0.89 (0.70-1.30) mg/dL Est Cr Clr Drug Dosing 81.49 mL/min Estimated GFR (MDRD) > 60 BUN/Creatinine Ratio 12.4 (No establ ref range) Glucose 286 H (74-99) mg/dL POC Glucose (70-105) mg/dl Lactic Acid 2.1 H* (0.4-2.0) mmol/L Calcium 8.5 (8.5-10.1) mg/dL Magnesium 1.7 L (1.8-2.4) mg/dL Total Bilirubin 0.3 (0.2-1.0) mg/dL AST 13 L (15-37) U/L ALT 26 (16-63) U/L Alkaline Phosphatase 92 (46-116) U/L Troponin I < 0.017 (0.000-0.056) ng/mL C-Reactive Protein 1.5 H (0.0-0.9) mg/dL Total Protein 6.8 (6.4-8.2) g/dL Albumin 3.4 (3.4-5.0) g/dL Globulin 3.4 Albumin/Globulin Ratio 1.0 SARS-CoV-2 RNA (NANCY) (NEGATIVE) Meds: Medications Discontinued Medications Generic Name Dose Route Start Last Admin Trade Name Laya PRN Reason Stop Dose Admin Dexamethasone 6 mg 10/19/20 15:11 10/19/20 15:15 Decadron IM 10/19/20 15:12 6 mg ONETIME ONE Administration - Re-Assessments/Exams Free Text/Narrative Re-Assessment/Exam: 10/19/20 COVID screen positive. Lactic acid 2.3, CRP 1.3, and BS 289 CXR remarkable for ground-glass infiltrates. Patient counseled to continue on Augmentin and Z- pack as previously ordered. Will administer Dexamethasone 6mg today and initiate course for 6 days. Patient instructed to increase Glipizide to 7.5mg during this acute illness. Discussed red flag signs and symptoms which would warrant reevaluation. Patient instructed to follow up in clinic with his PCP for overall assessment and reassessment of medication management following quarantine. Patient verbalized understanding and agreement with the plan of care. Departure - Departure Time of Disposition: 15:11 Disposition: Home, Self-Care 01 Condition: Good Clinical Impression: COVID-19 virus infection, Hyperglycemia, Elevated lactic acid level - Discharge Information *PRESCRIPTION DRUG MONITORING PROGRAM REVIEWED*: Not Applicable *COPY OF PRESCRIPTION DRUG MONITORING REPORT IN PATIENT ANNEL: Not Applicable Referrals: PCP,None [Primary Care Provider] - Forms: ED Department Discharge Additional Instructions: Rx: Dexamethasone 1.) Increase Glipizide to 7.5mg while you are in quarantine for COVID. 2.) Follow [facility] guidelines regarding COVID. 3.) Continue taking Augmentin and Z-pack, as prescribed by Dr. Stout. 4.) You may take acetaminophen (Tylenol) 650mg every six hours. You may take ibuprofen (Advil/Motrin) 400mg every six hours. You may stagger these medications so you are taking a dose of medicine every three hours. 5.) Drink plenty of fluids to stay hydrated. 6.) Eat small, frequent meals to avoid nausea. Sepsis Event Note (ED) - Evaluation Sepsis Screening Result: No Definite Risk - Focused Exam Vital Signs: Vital Signs Temp Pulse Resp BP Pulse Ox 10/19/20 13:06 99.1 F 95 18 135/69 91 L - My Orders Last 24 Hours: My Active Orders 10/19/20 13:37 UA RFX LAI AND CULT IF INDIC [URIN] Stat 10/19/20 14:18 REFLEX LACTIC ACID YES OR NO [CHEM] Routine 10/19/20 14:29 Chest 1V Frontal [CR] Urgent - Assessment/Plan Last 24 Hours: My Active Orders 10/19/20 13:37 UA RFX LAI AND CULT IF INDIC [URIN] Stat 10/19/20 14:18 REFLEX LACTIC ACID YES OR NO [CHEM] Routine 10/19/20 14:29 Chest 1V Frontal [CR] Urgent
[2020-10-19 14:17] LABS: ANION GAP 11.9 mEq/L (7-13); CHLORIDE,CL 101 mmol/L (98-107); SODIUM,NA 137 mmol/L (136-145)
[2020-10-19] MEDS ORDERED: Dexamethasone 4 MG/ML SDV IM ONE (15:11)
--- NOTE | 2020-10-19 15:35 | CR ---
EXAMINATION: Chest 1V Frontal SEX: Male AGE: 60 years CLINICAL HISTORY: 60-year-old male with shortness of breath (SOB) who is COVID +. Comparison CXR 27 April 2020. INTERPRETATION: No acute new cardiopulmonary abnormality since April 2020. 1. Chronic shaggy prominence of the proximal lung markings. Smoker? 2. Normal cardiac silhouette (size and configuration). No pulmonary vascular congestion, cephalization of vascular flow, alveolar edema or dependent pleural fluid accumulation (effusion). 3. No new lung mass or hilar/mediastinal lymphadenopathy. 4. No focal lobar consolidation (infiltrate/atelectasis), air bronchograms or peripheral "groundglass" interstitial lung densities. 5. No pneumothorax or pneumomediastinum. Midline tracheal bronchial airway unremarkable. CONCLUSION:
== END 2020-10-19 15:23 | disposition home or self-care (01) ==
LOC: DL.ED 12:42
DX: U07.1 COVID-19 (principal); E11.65 Type 2 diabetes mellitus with hyperglycemia; R74.02 Elevation of levels of lactic acid dehydrogenase [LDH]; E78.00 Pure hypercholesterolemia, unspecified; J44.9 Chronic obstructive pulmonary disease, unspecified; M19.90 Unspecified osteoarthritis, unspecified site; E11.42 Type 2 diabetes mellitus with diabetic polyneuropathy; F17.210 Nicotine dependence, cigarettes, uncomplicated; Z79.82 Long term (current) use of aspirin; Z79.899 Other long term (current) drug therapy
CPT/HCPCS: 36415; 71045; 80053; 82962; 83605; 83735; 84484; 85025; 86140; 96372; 99284; 99285-25; J1100; U0002

== ENCOUNTER 2021-03-12 14:32 | Emergency (ER) | payer SELFPAY ==
[2021-03-12 15:30] VITALS: BP 112/67; PULSE 102
[2021-03-12] MEDS ORDERED: Albuterol/Ipratropium 3.0-0.5 MG/3 ML Neb Soln NEB ONE (17:27)
[2021-03-12] MEDS ORDERED: methylPREDNISolone Sodium Succinate 125 MG/2 ML SDV IVPUSH ONE (17:27)
--- NOTE | 2021-03-12 18:11 | EDM.PDOC ---
Scribed by Sapphire Hernandez 03/12/[id number] for Octavia Morrell NP ED HPI GENERAL MEDICAL PROBLEM - General Chief Complaint: Respiratory Problem Stated Complaint: RIGHT LEG PAIN HOT&COLD FLASHED WHEEZY BREATHS Time Seen by Provider: 03/12/21 17:15 Source of Information: Reports: Patient, RN, RN Notes Reviewed History Limitations: Reports: No Limitations - History of Present Illness INITIAL COMMENTS - FREE TEXT/NARRATIVE: Patient is a 60-year-old male who presents to ER with complaint of fever last night, chills and wheezing over the past few days. He has had vomiting, cough with green sputum, increased shortness of breath and runny nose. He has had no diarrhea, chest pains or headache. Onset Date: 03/11/21 Duration: Getting Worse Location: Reports: Chest Severity: Moderate Improves with: Reports: None Worsens with: Reports: None Associated Symptoms: Reports: No Other Symptoms Left Thigh Pain Score (Numeric/FACES): 7 - Related Data Allergies Allergy/AdvReac Type Severity Reaction Status Date / Time No Known Allergies Allergy Verified 03/12/21 15:20 Home Meds: Home Meds Simvastatin 40 mg PO BEDTIME 08/25/14 [History] glyBURIDE [Glyburide] 5 mg PO BID 08/25/14 [History] metFORMIN [Glucophage] 1,000 mg PO BID 08/25/14 [History] Albuterol Sulfate [Albuterol Sulfate HFA] 2 puff INH Q6H PRN 12/23/14 [History] Aspirin [[place] Aspirin EC] 81 mg PO DAILY 12/23/14 [History] Vitamin E (Dl,Tocopheryl Acet) [Vitamin E] 180 unit PO BEDTIME 01/17/18 [History] traZODone HCl [Trazodone HCl] 50 mg PO BEDTIME 10/25/18 [History] Albuterol/Ipratropium [DuoNeb 3.0-0.5 MG/3 ML] 3 ml NEB Q4H PRN #30 neb 12/15/19 [Rx] DULoxetine [Cymbalta] 30 mg PO DAILY 04/27/20 [History] predniSONE 20 mg PO DAILY 5 Days #5 tab 04/29/20 [Rx] Ibuprofen [Motrin] 600 mg PO ASDIRECTED 05/10/20 [History] Ketorolac [Acular 0.5% Ophth Soln] 1 drop EYELF ASDIRECTED 05/10/20 [History] Moxifloxacin HCl [Moxifloxacin] 1 drop EYELF ASDIRECTED 05/10/20 [History] Prednisolone Acetate/Pf [Prednisolone Acet 1% Eye Drop] 1 drop EYELF ASDIRECTED 05/10/20 [History] Amoxicillin/Potassium Clav [Amox-Clav 875-125 mg Tablet] 1 tab PO BID 10/19/20 [History] Past Medical History HEENT History: Reports: Cataract, Impaired Vision Other HEENT History: UPPER DENTURES Cardiovascular History: Reports: High Cholesterol, SOB on Exertion Respiratory History: Reports: Asthma, Bronchitis, Recurrent, COPD, SOB Gastrointestinal History: Reports: None Genitourinary History: Reports: None Musculoskeletal History: Reports: Arthritis, Back Pain, Chronic, Osteoarthritis Neurological History: Reports: Neuropathy, Peripheral Psychiatric History: Reports: None Endocrine/Metabolic History: Reports: Diabetes, Type II Hematologic History: Reports: None Immunologic History: Reports: None Oncologic (Cancer) History: Reports: None Dermatologic History: Reports: None - Infectious Disease History Infectious Disease History: Reports: Chicken Pox, Measles, Mumps, Novel Coronavirus - Past Surgical History Head Surgeries/Procedures: Reports: None HEENT Surgical History: Reports: Cataract Surgery, Oral Surgery Cardiovascular Surgical History: Reports: None Respiratory Surgical History: Reports: None GI Surgical History: Reports: None Male Surgical History: Reports: None Endocrine Surgical History: Reports: None Neurological Surgical History: Reports: None Musculoskeletal Surgical History: Reports: Arthroscopic Knee Oncologic Surgical History: Reports: None Dermatological Surgical History: Reports: None Social & Family History - Family History Family Medical History: No Pertinent Family History Other Respiratory Family Hisory: father from lung cancer Endocrine/Metabolic: Reports: Diabetes, type II Other Endocrine/Metabolic Family History: mother has DM and possibley hypercholesterolemia - Tobacco Use Tobacco Use Status *Q: Current Every Day Tobacco User Years of Tobacco use: 50 Packs/Tins Daily: 0.5 - Caffeine Use Caffeine Use: Reports: Coffee, Soda Other Caffeine Use: 24 cups daily - Recreational Drug Use Recreational Drug Use: No - Living Situation & Occupation Living situation: Reports: ED ROS GENERAL - Review of Systems Review Of Systems: Comprehensive ROS is negative, except as noted in HPI. ED EXAM, GENERAL - Physical Exam Exam: See Below Exam Limited By: No Limitations General Appearance: Alert, WD/WN, No Apparent Distress Eye Exam: Bilateral Eye: EOMI, Normal Inspection, PERRL Ears: Normal External Exam, Normal Canal, Hearing Grossly Normal, Normal TMs Nose: Normal Inspection, Normal Mucosa, No Blood Throat/Mouth: Normal Inspection, Normal Lips, Normal Teeth, Normal Gums, Normal Oropharynx, Normal Voice, No Airway Compromise Head: Atraumatic, Normocephalic Neck: Normal Inspection, Supple, Non-Tender, Full Range of Motion Respiratory/Chest: Crackles (throughout), Other (very diminished) Cardiovascular: Normal Peripheral Pulses, Regular Rate, Rhythm, No Edema, No Gallop, No JVD, No Murmur, No Rub GI/Abdominal: Normal Bowel Sounds, Soft, Non-Tender, No Organomegaly, No Distention, No Abnormal Bruit, No Mass (Male) Exam: Deferred Rectal (Males) Exam: Deferred Back Exam: Normal Inspection, Full Range of Motion, NT Extremities: Normal Inspection, Normal Range of Motion, Non-Tender, Normal Capillary Refill, No Pedal Edema Neurological: Alert, Oriented, CN II-XII Intact, Normal Cognition, Normal Gait, Normal Reflexes, No Motor/Sensory Deficits Psychiatric: Normal Affect, Normal Mood Skin Exam: Warm, Dry, Intact, Normal Color, No Rash Lymphatic: No Adenopathy Course - Vital Signs Last Recorded V/S: Last Vital Signs Temp 98.6 F 03/12/21 15:23 Pulse 102 H 03/12/21 15:23 Resp 24 H 03/12/21 15:23 BP 112/67 03/12/21 15:23 Pulse Ox 95 03/12/21 15:23 - Orders/Labs/Meds Orders: Active Orders 24 hr Category Date Time Status RT Aerosol Therapy [RC] ASDIRECTED Care 03/12/21 17:28 Active Labs: Laboratory Tests 03/12/21 03/12/21 Range/Units 17:59 17:59 WBC 9.4 (5.0-10.0) 10^3/uL RBC 5.23 (4.6-6.2) 10^6/uL Hgb 15.3 (14.0-18.0) g/dL Hct 46.2 (40.0-54.0) % MCV 88.3 (80-100) fL MCH 29.3 (27.0-34.0) pg MCHC 33.1 (33.0-35.0) g/dL Plt Count 344 (150-450) 10^3/uL Neut % (Auto) 52.8 (42.2-75.2) % Lymph % (Auto) 25.5 (20.5-50.1) % [place] % (Auto) 13.8 H (2-8) % Eos % (Auto) 7.5 H (1.0-3.0) % Baso % (Auto) 0.4 (0.0-1.0) % Sodium 140 (136-145) mmol/L Potassium 3.7 (3.5-5.1) mmol/L Chloride 103 (98-107) mmol/L Carbon Dioxide 27 (21-32) mmol/L Anion Gap 13.7 H (7-13) mEq/L BUN 13 (7-18) mg/dL Creatinine 0.85 (0.70-1.30) mg/dL Est Cr Clr Drug Dosing 82.36 mL/min Estimated GFR (MDRD) > 60 BUN/Creatinine Ratio 15.3 (No establ ref range) Glucose 72 (70-99) mg/dL Calcium 8.8 (8.5-10.1) mg/dL Total Bilirubin 0.5 (0.2-1.0) mg/dL AST 13 L (15-37) U/L ALT 22 (16-63) U/L Alkaline Phosphatase 85 (46-116) U/L B-Natriuretic Peptide 17 (0-100) pg/ml Total Protein 7.0 (6.4-8.2) g/dL Albumin 3.6 (3.4-5.0) g/dL Globulin 3.4 Albumin/Globulin Ratio 1.1 Meds: Medications Discontinued Medications Generic Name Dose Route Start Last Admin Trade Name Freq PRN Reason Stop Dose Admin Albuterol/Ipratropium 3 ml 03/12/21 17:27 03/12/21 18:18 Albuterol/Ipratropium 3.0-0.5 Mg/3 Ml Neb Soln NEB 03/12/21 17:28 3 ml ONETIME ONE Administration Azithromycin 500 mg 03/12/21 18:16 Azithromycin 250 Mg Tab PO 03/12/21 18:17 ONETIME ONE Methylprednisolone Sodium Succinate 125 mg 03/12/21 17:27 03/12/21 18:17 Methylprednisolone Sodium Succinate 125 Mg/2 Ml Sdv IVPUSH 03/12/21 17:28 125 mg ONETIME ONE Administration - Radiology Interpretation Free Text/Narrative:: Chest xray: PROCEDURE INFORMATION: Exam: XR Chest Exam date and time: 03/12/2021 5:35 PM Age: 60 years old Clinical indication: Other: Chest pain TECHNIQUE: Imaging protocol: XR of the chest. Views: 1 view. Total images: 1 COMPARISON: CR Chest 1V Frontal 10/19/2020 3:01 PM FINDINGS: Lungs: Unremarkable. No consolidation. Pleural spaces: Unremarkable. No pleural effusion. No pneumothorax. Heart/Mediastinum: Unremarkable. No cardiomegaly. Bones/joints: Unremarkable. IMPRESSION: No acute findings. Thank you for allowing us to participate in the care of your patient. Dictated and Authenticated by: Cody Cabrera MD 03/12/2021 6:09 PM Central Time ([place] & [place]) See rad report Departure - Departure Time of Disposition: 18:32 Disposition: Home, Self-Care 01 Condition: Fair Clinical Impression: COPD with exacerbation - Discharge Information *PRESCRIPTION DRUG MONITORING PROGRAM REVIEWED*: No *COPY OF PRESCRIPTION DRUG MONITORING REPORT IN PATIENT ANNEL: No Instructions: Steps to Quit Smoking, [id number], Shortness of Breath, Adult, [id number], Chronic Obstructive Pulmonary Disease, [id number], Community- Acquired Pneumonia, Adult, [id number] Forms: ED Department Discharge Additional Instructions: RX: Prednisone 40mg orally once daily, beginning Saturday03/13/21 RX: Azithromycin 250mg orally once daily for 4 days 03/13, 03/14, 03/15, 03/16 Use your nebulizers as directed Follow up with your primary care facility if no improvement Return to the ER with any worsening of symptoms Sepsis Event Note (ED) - Evaluation Sepsis Screening Result: Possible Sepsis Risk - Focused Exam Vital Signs: Vital Signs Temp Pulse Resp BP Pulse Ox 03/12/21 15:23 98.6 F 102 H 24 H 112/67 95 - My Orders Last 24 Hours: My Active Orders 03/12/21 17:28 RT Aerosol Therapy [RC] ASDIRECTED - Assessment/Plan Last 24 Hours: My Active Orders 03/12/21 17:28 RT Aerosol Therapy [RC] ASDIRECTED I have read and agree with the documentation that has been completed regarding this visit. By signing this record, I attest that the documentation was completed in my physical presence and is an accurate record of the encounter.
[2021-03-12] MEDS ORDERED: Azithromycin 250 MG Tab PO ONE (18:16)
[2021-03-12 18:29] LABS: ANION GAP 13.7 mEq/L (7-13); CHLORIDE,CL 103 mmol/L (98-107); SODIUM,NA 140 mmol/L (136-145)
== END 2021-03-12 18:50 | disposition home or self-care (01) ==
LOC: DL.ED 14:32
DX: J44.1 Chronic obstructive pulmonary disease with (acute) exacerbation (principal); E78.00 Pure hypercholesterolemia, unspecified; M19.90 Unspecified osteoarthritis, unspecified site; E11.42 Type 2 diabetes mellitus with diabetic polyneuropathy; Z79.82 Long term (current) use of aspirin; Z79.84 Long term (current) use of oral hypoglycemic drugs; Z79.899 Other long term (current) drug therapy; Z72.0 Tobacco use
CPT/HCPCS: 36415; 71045; 80053; 83880; 85025; 94640; 96374; 99283; 99285-25; A9270-GY; J2930; J7620-GY

== ENCOUNTER 2021-05-29 18:36 | Emergency (ER) | payer OTHER, SELFPAY ==
[2021-05-29 18:49] VITALS: BP 124/89
[2021-05-29] MEDS ORDERED: methylPREDNISolone Sodium Succinate 125 MG/2 ML SDV IM ONE (19:39)
[2021-05-29 20:28] LABS: ANION GAP 13.1 mEq/L (7-13); CHLORIDE,CL 100 mmol/L (98-107); SODIUM,NA 139 mmol/L (136-145)
--- NOTE | 2021-05-29 20:29 | CR ---
PROCEDURE INFORMATION: Exam: XR Chest Exam date and time: 05/29/2021 7:50 PM Age: 60 years old Clinical indication: Other: Shortness of breath, progressing with meds TECHNIQUE: Imaging protocol: XR of the chest. Views: 2 views. COMPARISON: CR Chest 1V Frontal 03/12/2021 5:35 PM FINDINGS: Lungs: Unremarkable. No consolidation. Pleural spaces: Unremarkable. No pleural effusion. No pneumothorax. Heart/Mediastinum: Unremarkable. No cardiomegaly. Bones/joints: Unremarkable. IMPRESSION: No acute findings.
--- NOTE | 2021-05-29 20:32 | EDM.PDOC ---
ED HPI GENERAL MEDICAL PROBLEM - General Chief Complaint: Respiratory Problem Stated Complaint: TEMP 98.1, HARD TO BREATH, STIFF, ACHEY. Time Seen by Provider: 05/29/21 19:00 Source of Information: Reports: Patient, Family (), RN, RN Notes Reviewed History Limitations: Reports: No Limitations - History of Present Illness INITIAL COMMENTS - FREE TEXT/NARRATIVE: Robin is a 60 y/o male with a history of COPD, asthma, and DM II who presents to the ED via personal vehicle with complaints of shortness of breath and productive cough. The patient reports his symptoms began two weeks ago and have progressed in severity over that time. He was examined by his PCP two days ago and was subsequently treated with a Z-pack and steroids; the patient states he has not started the steroids as he is concerned about elevated blood sugars. He denies fever, shaking chills, chest pain, palpitations, sore throat, sinus pressure, nausea, abdominal pain, or diarrhea. He does attest to one bout of emesis but relates it to a severe coughing fit. He has required increase use of his albuterol inhaler over the past 2-3 days. He reports ongoing tobacco use; he denies alcohol or recreational drug use. - Related Data Allergies Allergy/AdvReac Type Severity Reaction Status Date / Time No Known Allergies Allergy Verified 03/12/21 15:20 Home Meds: Home Meds Simvastatin 40 mg PO BEDTIME 08/25/14 [History] glyBURIDE [Glyburide] 5 mg PO BID 08/25/14 [History] metFORMIN [Glucophage] 1,000 mg PO BID 08/25/14 [History] Albuterol Sulfate [Albuterol Sulfate HFA] 2 puff INH Q6H PRN 12/23/14 [History] Aspirin [[place] Aspirin EC] 81 mg PO DAILY 12/23/14 [History] Vitamin E (Dl,Tocopheryl Acet) [Vitamin E] 180 unit PO BEDTIME 01/17/18 [History] traZODone HCl [Trazodone HCl] 50 mg PO BEDTIME 10/25/18 [History] Albuterol/Ipratropium [DuoNeb 3.0-0.5 MG/3 ML] 3 ml NEB Q4H PRN #30 neb 12/15/19 [Rx] DULoxetine [Cymbalta] 30 mg PO DAILY 04/27/20 [History] predniSONE 20 mg PO DAILY 5 Days #5 tab 04/29/20 [Rx] Ibuprofen [Motrin] 600 mg PO ASDIRECTED 05/10/20 [History] Ketorolac [Acular 0.5% Ophth Soln] 1 drop EYELF ASDIRECTED 05/10/20 [History] Moxifloxacin HCl [Moxifloxacin] 1 drop EYELF ASDIRECTED 05/10/20 [History] Prednisolone Acetate/Pf [Prednisolone Acet 1% Eye Drop] 1 drop EYELF ASDIRECTED 05/10/20 [History] Amoxicillin/Potassium Clav [Amox-Clav 875-125 mg Tablet] 1 tab PO BID 10/19/20 [History] Past Medical History HEENT History: Reports: Cataract, Impaired Vision Other HEENT History: UPPER DENTURES Cardiovascular History: Reports: High Cholesterol, SOB on Exertion Respiratory History: Reports: Asthma, Bronchitis, Recurrent, COPD, SOB Gastrointestinal History: Reports: None Genitourinary History: Reports: None Musculoskeletal History: Reports: Arthritis, Back Pain, Chronic, Osteoarthritis Neurological History: Reports: Neuropathy, Peripheral Psychiatric History: Reports: None Endocrine/Metabolic History: Reports: Diabetes, Type II Hematologic History: Reports: None Immunologic History: Reports: None Oncologic (Cancer) History: Reports: None Dermatologic History: Reports: None - Infectious Disease History Infectious Disease History: Reports: Chicken Pox, Measles, Mumps, Novel Coronavirus - Past Surgical History Head Surgeries/Procedures: Reports: None HEENT Surgical History: Reports: Cataract Surgery, Oral Surgery Cardiovascular Surgical History: Reports: None Respiratory Surgical History: Reports: None GI Surgical History: Reports: None Male Surgical History: Reports: None Endocrine Surgical History: Reports: None Neurological Surgical History: Reports: None Musculoskeletal Surgical History: Reports: Arthroscopic Knee Oncologic Surgical History: Reports: None Dermatological Surgical History: Reports: None Social & Family History - Family History Family Medical History: No Pertinent Family History Other Respiratory Family Hisory: father from lung cancer Endocrine/Metabolic: Reports: Diabetes, type II Other Endocrine/Metabolic Family History: mother has DM and possibley hypercholesterolemia - Tobacco Use Tobacco Use Status *Q: Current Every Day Tobacco User Years of Tobacco use: 50 Packs/Tins Daily: 1 - Caffeine Use Caffeine Use: Reports: Coffee Other Caffeine Use: 24 cups daily - Recreational Drug Use Recreational Drug Use: No - Living Situation & Occupation Living situation: Reports: ED ROS GENERAL - Review of Systems Review Of Systems: Comprehensive ROS is negative, except as noted in HPI. ED EXAM, GENERAL - Physical Exam Exam: See Below Exam Limited By: No Limitations General Appearance: Alert, Mild Distress (Increased work of breathing) Eye Exam: Bilateral Eye: EOMI, Normal Inspection, PERRL (3mm) Ears: Normal External Exam, Normal Canal, Hearing Grossly Normal, Normal TMs Nose: Normal Inspection, Normal Mucosa, No Blood Throat/Mouth: Normal Inspection, Normal Oropharynx, Normal Voice, No Airway Compromise Head: Atraumatic, Normocephalic Neck: Normal Inspection, Supple, Non-Tender, Full Range of Motion. No: Lymphadenopathy (L), Lymphadenopathy (R) Respiratory/Chest: Chest Non-Tender, Respiratory Distress, Rhonchi, Wheezing (Expiratory), Accessory Muscle Use, Prolonged Expiration. No: Crackles, Rales, Stridor Cardiovascular: Regular Rate, Rhythm, No Edema, No Gallop, No JVD, No Murmur, No Rub, Tachycardia Peripheral Pulses: 2+: Radial (L), Radial (R) GI/Abdominal: Normal Bowel Sounds, Soft, Non-Tender, No Distention, No Abnormal Bruit, No Mass, Pelvis Stable (Male) Exam: Deferred Rectal (Males) Exam: Deferred Back Exam: Normal Inspection, Full Range of Motion Extremities: Normal Inspection, Normal Range of Motion, Non-Tender, Normal Capillary Refill, No Pedal Edema Neurological: Alert, Oriented, CN II-XII Intact, Normal Cognition, Normal Gait, No Motor/Sensory Deficits Psychiatric: Normal Affect, Normal Mood Skin Exam: Warm, Dry, Intact, Normal Color, No Rash. No: Cyanosis, Ecchymosis, Erythema, Jaundice, Mottled, Pallor, Petechiae Course - Vital Signs Last Recorded V/S: Last Vital Signs Temp 100.7 F H 05/29/21 18:47 Pulse 115 H 05/29/21 20:41 Resp 20 05/29/21 18:47 BP 124/89 05/29/21 18:47 Pulse Ox 94 L 05/29/21 18:47 - Orders/Labs/Meds Labs: Laboratory Tests 05/29/21 05/29/21 Range/Units 20:00 20:00 WBC 20.5 H (5.0-10.0) 10^3/uL RBC 5.33 (4.6-6.2) 10^6/uL Hgb 15.9 (14.0-18.0) g/dL Hct 47.2 (40.0-54.0) % MCV 88.6 (80-100) fL MCH 29.8 (27.0-34.0) pg MCHC 33.7 (33.0-35.0) g/dL Plt Count 463 H D (150-450) 10^3/uL Neut % (Auto) 74.5 (42.2-75.2) % Lymph % (Auto) 12.2 L (20.5-50.1) % [place] % (Auto) 9.3 H (2-8) % Eos % (Auto) 3.8 H (1.0-3.0) % Baso % (Auto) 0.2 (0.0-1.0) % Sodium 139 (136-145) mmol/L Potassium 4.1 (3.5-5.1) mmol/L Chloride 100 (98-107) mmol/L Carbon Dioxide 30 (21-32) mmol/L Anion Gap 13.1 H (7-13) mEq/L BUN 14 (7-18) mg/dL Creatinine 1.02 (0.70-1.30) mg/dL Est Cr Clr Drug Dosing 68.63 mL/min Estimated GFR (MDRD) > 60 BUN/Creatinine Ratio 13.7 (No establ ref range) Glucose 107 H (70-99) mg/dL Calcium 9.3 (8.5-10.1) mg/dL Total Bilirubin 0.4 (0.2-1.0) mg/dL AST 11 L (15-37) U/L ALT 22 (16-63) U/L Alkaline Phosphatase 105 (46-116) U/L Troponin I High Sens 5 (<=76) pg/mL C-Reactive Protein 4.8 H (0.0-0.9) mg/dL B-Natriuretic Peptide 11 (0-100) pg/ml Total Protein 7.7 (6.4-8.2) g/dL Albumin 3.8 (3.4-5.0) g/dL Globulin 3.9 Albumin/Globulin Ratio 1.0 Meds: Medications Discontinued Medications Generic Name Dose Route Start Last Admin Trade Name Laya PRN Reason Stop Dose Admin Albuterol/Ipratropium 3 ml 05/29/21 20:34 05/29/21 20:41 Albuterol/Ipratropium 3.0-0.5 Mg/3 Ml Neb Soln NEB 05/29/21 20:35 3 ml ONETIME ONE Administration Amoxicillin/Clavulanate Potassium 1 tab 05/29/21 21:12 05/29/21 21:18 Amoxicillin/Clavulanate K 875-125 Mg Tab PO 05/29/21 21:13 1 tab ONETIME ONE Administration Methylprednisolone Sodium Succinate 125 mg 05/29/21 19:39 05/29/21 19:55 Methylprednisolone Sodium Succinate 125 Mg/2 Ml Sdv IM 05/29/21 19:40 125 mg ONETIME ONE Administration - Radiology Interpretation Free Text/Narrative:: [facility] [place] [facility] Final Radiology Report Call: [phone] assistance Online chat: [email or web address] Name: ROBIN WOODSON Age: 60Years M Date: 05/29/2021 SSN: -- : [id number] Study: CR CHEST 2V Requesting Physician: Mariel Olson Images: 2 Addl Studies: Provided Clinical History: Shortness of breath, progressing with meds Contrast: Contrast Medium: Contrast Amount: Contrast Method: CONFIDENTIALITY STATEMENT This report is intended only for use by the referring physician, and only in accordance with law. If you received this in error, call [phone]. Page 1 of 1 PROCEDURE INFORMATION: Exam: XR Chest Exam date and time: 05/29/2021 7:50 PM Age: 60 years old Clinical indication: Other: Shortness of breath, progressing with meds TECHNIQUE: Imaging protocol: XR of the chest. Views: 2 views. COMPARISON: CR Chest 1V Frontal 03/12/2021 5:35 PM FINDINGS: Lungs: Unremarkable. No consolidation. Pleural spaces: Unremarkable. No pleural effusion. No pneumothorax. Heart/Mediastinum: Unremarkable. No cardiomegaly. Bones/joints: Unremarkable. IMPRESSION: No acute findings. Thank you for allowing us to participate in the care of your patient. Dictated and Authenticated by: Estevan Greene MD 05/29/2021 8:28 PM Central Time ([place] & [place]) - Re-Assessments/Exams Free Text/Narrative Re-Assessment/Exam: 05/29/21 Solu-Medrol 125mg IM and Duoneb administered while labs pending. CXR obtained. Findings of examination, lab work, and imaging reviewed with patient and . Will treat empirically for CAP given elevated WBC with shift despite Z-pack, elevated CRP, fever, and tachycardia. Pulmonary burst prednisone initiated. Discussed supportive cares for SOB. Red flag signs and symptoms which would warrant reevaluation reviewed. Patient verbalized understanding and agreement with the plan of care. Departure - Departure Time of Disposition: 21:20 Disposition: Home, Self-Care 01 Condition: Fair Clinical Impression: Acute exacerbation of chronic obstructive pulmonary disease (COPD) - Discharge Information *PRESCRIPTION DRUG MONITORING PROGRAM REVIEWED*: Not Applicable *COPY OF PRESCRIPTION DRUG MONITORING REPORT IN PATIENT ANNEL: Not Applicable Instructions: Chronic Obstructive Pulmonary Disease Exacerbation, Upper Respiratory Infection, Adult, [id number] Forms: ED Department Discharge Additional Instructions: Rx: Prednisone Rx: Duoneb Rx: Augmentin 1.) Take your medications, as prescribed, until gone. 2.) Monitor your blood sugars closely while taking steroids. 3.) Follow up with your primary care provider in 3-5 days regarding today's visit, or sooner should symptoms persist or worsen with medications. 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 5.) Continue with Z-pack Sepsis Event Note (ED) - Evaluation Sepsis Screening Result: No Definite Risk - Focused Exam Vital Signs: Vital Signs Temp Pulse Resp BP Pulse Ox 05/29/21 20:41 115 H 05/29/21 18:47 100.7 F H 124 H 20 124/89 94 L
[2021-05-29] MEDS ORDERED: Albuterol/Ipratropium 3.0-0.5 MG/3 ML Neb Soln NEB ONE (20:34)
[2021-05-29 20:45] VITALS: PULSE 115
[2021-05-29] MEDS ORDERED: Amoxicillin/Clavulanate K 875-125 MG Tab PO ONE (21:12)
== END 2021-05-29 21:28 | disposition home or self-care (01) ==
LOC: DL.ED 18:36
DX: J44.1 Chronic obstructive pulmonary disease with (acute) exacerbation (principal); E11.40 Type 2 diabetes mellitus with diabetic neuropathy, unspecified; E78.00 Pure hypercholesterolemia, unspecified; Z79.899 Other long term (current) drug therapy; Z72.0 Tobacco use
CPT/HCPCS: 36415; 71046; 80053; 83880; 84484; 85025; 86140; 94640; 96372; 99285; A9270; J2930; J7620-GY

== ENCOUNTER 2021-06-03 13:55 | Emergency (ER) | payer OTHER ==
--- NOTE | 2021-06-03 14:14 | EDM.PDOC ---
ED HPI GENERAL MEDICAL PROBLEM - General Chief Complaint: Respiratory Problem Stated Complaint: [id number] SOB CAN'T SLEEP CANT EAT COUGH Time Seen by Provider: 06/03/21 14:13 Source of Information: Reports: Patient, Old Records, RN, RN Notes Reviewed History Limitations: Reports: No Limitations - History of Present Illness INITIAL COMMENTS - FREE TEXT/NARRATIVE: Romero is a 60 y/o male with a history of COPD who presents to the ED via personal vehicle with complaints of persistent cough. The patient was examined in this facility five days ago for persistent cough and shortness of breath; he was subsequently prescribed DuoNeb, prednisone, and Augmentin in addition to his previously prescribed Z-Pack. He states he did not receive the prednisone from his pharmacy, so he has only been taking the Augmentin and DuoNebs BID. He has still required PRN albuterol nebulizers but denies shortness of breath or chest pain at this time. He denies fever, shaking chills, palpitations, nausea, vomiting, or dyspepsia. He has reduced his cigarette smoking to 1/4 pack per day, down from 1 pack per day. - Related Data Allergies Allergy/AdvReac Type Severity Reaction Status Date / Time No Known Allergies Allergy Verified 06/03/21 14:06 Home Meds: Home Meds Simvastatin 40 mg PO BEDTIME 08/25/14 [History] glyBURIDE [Glyburide] 5 mg PO BID 08/25/14 [History] metFORMIN [Glucophage] 1,000 mg PO BID 08/25/14 [History] Albuterol Sulfate [Albuterol Sulfate HFA] 2 puff INH Q6H PRN 12/23/14 [History] Aspirin [[place] Aspirin EC] 81 mg PO DAILY 12/23/14 [History] Vitamin E (Dl,Tocopheryl Acet) [Vitamin E] 180 unit PO BEDTIME 01/17/18 [History] traZODone HCl [Trazodone HCl] 50 mg PO BEDTIME 10/25/18 [History] Albuterol/Ipratropium [DuoNeb 3.0-0.5 MG/3 ML] 3 ml NEB Q4H PRN #30 neb 12/15/19 [Rx] DULoxetine [Cymbalta] 30 mg PO DAILY 04/27/20 [History] Ibuprofen [Motrin] 600 mg PO ASDIRECTED 05/10/20 [History] Amoxicillin/Potassium Clav [Amox-Clav 875-125 mg Tablet] 1 tab PO BID 06/03/21 [History] predniSONE 20 mg PO BID 06/03/21 [History] Past Medical History HEENT History: Reports: Cataract, Impaired Vision Other HEENT History: UPPER DENTURES Cardiovascular History: Reports: High Cholesterol, SOB on Exertion Respiratory History: Reports: Asthma, Bronchitis, Recurrent, COPD, SOB Gastrointestinal History: Reports: None Genitourinary History: Reports: None Musculoskeletal History: Reports: Arthritis, Back Pain, Chronic, Osteoarthritis Neurological History: Reports: Neuropathy, Peripheral Psychiatric History: Reports: None Endocrine/Metabolic History: Reports: Diabetes, Type II Hematologic History: Reports: None Immunologic History: Reports: None Oncologic (Cancer) History: Reports: None Dermatologic History: Reports: None - Infectious Disease History Infectious Disease History: Reports: Chicken Pox, Measles, Mumps, Novel Coronavirus - Past Surgical History Head Surgeries/Procedures: Reports: None HEENT Surgical History: Reports: Cataract Surgery, Oral Surgery Cardiovascular Surgical History: Reports: None Respiratory Surgical History: Reports: None GI Surgical History: Reports: None Male Surgical History: Reports: None Endocrine Surgical History: Reports: None Neurological Surgical History: Reports: None Musculoskeletal Surgical History: Reports: Arthroscopic Knee Oncologic Surgical History: Reports: None Dermatological Surgical History: Reports: None Social & Family History - Family History Family Medical History: No Pertinent Family History Other Respiratory Family Hisory: father from lung cancer Endocrine/Metabolic: Reports: Diabetes, type II Other Endocrine/Metabolic Family History: mother has DM and possibley hypercho lesterolemia - Caffeine Use Caffeine Use: Reports: Coffee Other Caffeine Use: 24 cups daily - Living Situation & Occupation Living situation: Reports: ED ROS GENERAL - Review of Systems Review Of Systems: Comprehensive ROS is negative, except as noted in HPI. ED EXAM, GENERAL - Physical Exam Exam: See Below Exam Limited By: No Limitations General Appearance: Alert, No Apparent Distress Eye Exam: Bilateral Eye: EOMI, Normal Inspection, PERRL (3mm) Ears: Normal External Exam, Normal Canal, Hearing Grossly Normal, Normal TMs Ear Exam: Bilateral Ear: Auricle Normal, Canal Normal, TM normal Nose: Normal Inspection, Normal Mucosa, No Blood Throat/Mouth: Normal Inspection, Normal Lips, Normal Teeth, Normal Gums, Normal Oropharynx, Normal Voice, No Airway Compromise Head: Atraumatic, Normocephalic Neck: Normal Inspection, Supple, Non-Tender, Full Range of Motion. No: Lymphadenopathy (L), Lymphadenopathy (R) Respiratory/Chest: No Respiratory Distress, No Accessory Muscle Use, Chest Non- Tender, Rhonchi (Diffuse), Wheezing (Expiratory to bilateral lobes). No: Crackles, Rales, Stridor Cardiovascular: Normal Peripheral Pulses, Regular Rate, Rhythm, No Edema, No Gallop, No JVD, No Murmur, No Rub Peripheral Pulses: 2+: Radial (L), Radial (R) GI/Abdominal: Normal Bowel Sounds, Non-Tender, No Distention, No Abnormal Bruit, No Mass, Pelvis Stable (Male) Exam: Deferred Rectal (Males) Exam: Deferred Back Exam: Normal Inspection, Full Range of Motion Extremities: Normal Inspection, Normal Range of Motion, Non-Tender, No Pedal Edema, Normal Capillary Refill Neurological: Alert, Oriented, CN II-XII Intact, Normal Cognition, Normal Gait, No Motor/Sensory Deficits Psychiatric: Normal Affect, Normal Mood Skin Exam: Warm, Dry, Intact, Normal Color, No Rash. No: Cyanosis, Ecchymosis, Erythema, Jaundice, Mottled, Pallor, Petechiae Lymphatic: No Adenopathy Course - Vital Signs Last Recorded V/S: Last Vital Signs Temp 98.2 F 06/03/21 14:13 Pulse 96 06/03/21 14:13 Resp 18 06/03/21 14:13 BP 120/62 06/03/21 14:13 Pulse Ox 94 L 06/03/21 14:13 - Orders/Labs/Meds Labs: Laboratory Tests 06/03/21 06/03/21 06/03/21 Range/Units 14:05 14:24 14:24 WBC 17.5 H (5.0-10.0) 10^3/uL RBC 4.54 L (4.6-6.2) 10^6/uL Hgb 13.4 L D (14.0-18.0) g/dL Hct 40.0 (40.0-54.0) % MCV 88.1 (80-100) fL MCH 29.5 (27.0-34.0) pg MCHC 33.5 (33.0-35.0) g/dL Plt Count 432 (150-450) 10^3/uL Neut % (Auto) 74.8 (42.2-75.2) % Lymph % (Auto) 12.3 L (20.5-50.1) % [place] % (Auto) 9.0 H (2-8) % Eos % (Auto) 3.6 H (1.0-3.0) % Baso % (Auto) 0.3 (0.0-1.0) % Sodium 140 (136-145) mmol/L Potassium 3.9 (3.5-5.1) mmol/L Chloride 102 (98-107) mmol/L Carbon Dioxide 28 (21-32) mmol/L Anion Gap 13.9 H (7-13) mEq/L BUN 11 (7-18) mg/dL Creatinine 0.94 (0.70-1.30) mg/dL Est Cr Clr Drug Dosing 74.47 mL/min Estimated GFR (MDRD) > 60 BUN/Creatinine Ratio 11.7 (No establ ref range) Glucose 196 H (70-99) mg/dL Calcium 8.8 (8.5-10.1) mg/dL Total Bilirubin 0.5 (0.2-1.0) mg/dL AST 12 L (15-37) U/L ALT 30 (16-63) U/L Alkaline Phosphatase 94 (46-116) U/L Troponin I High Sens 4 (<=76) pg/mL C-Reactive Protein 16.8 H (0.0-0.9) mg/dL B-Natriuretic Peptide 6 (0-100) pg/ml Total Protein 6.9 (6.4-8.2) g/dL Albumin 2.9 L (3.4-5.0) g/dL Globulin 4.0 Albumin/Globulin Ratio 0.73 Influenza Type A RNA Negative (NEGATIVE) Influenza Type B RNA Negative (NEGATIVE) SARS-CoV-2 RNA (NANCY) Negative (NEGATIVE) - Re-Assessments/Exams Free Text/Narrative Re-Assessment/Exam: 06/03/21 COVID swab sent. Will not repeat CXR given improvement in SOB. WBC improving. 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 Michael Parada called in during conversation with pharmacist. Findings of examination, lab work, and discussion with pharmacy reviewed with patient. Will treat cough with Tessalon, patient instructed to start prednisone today. Discussed supportive cares for persistent cough. Red flag signs and symptoms which would warrant reevaluation reviewed. Patient verbalized understanding and agreement with the plan of care. Departure - Departure Time of Disposition: 15:05 Disposition: Home, Self-Care 01 Condition: Good Clinical Impression: Cough, History of COPD, Tobacco user - Discharge Information *PRESCRIPTION DRUG MONITORING PROGRAM REVIEWED*: Not Applicable *COPY OF PRESCRIPTION DRUG MONITORING REPORT IN PATIENT ANNEL: Not Applicable Instructions: Cough, Adult Forms: ED Department Discharge Additional Instructions: Rx: Michael Parada 1.) Your steroid prescription is at [facility], start the dose today and then the next dose tomorrow morning. 2.) Continue with previously prescribed medications. 3.) Follow up with your primary care provider regarding today's prescriptions. 4.) The Michael has been called into [facility], as well. 5.) Continue with smoking cessation, good job! Sepsis Event Note (ED) - Focused Exam Vital Signs: Vital Signs Temp Pulse Resp BP Pulse Ox 06/03/21 14:13 98.2 F 96 18 120/62 94 L
[2021-06-03 14:19] VITALS: BP 120/62; PULSE 96
[2021-06-03 14:51] LABS: ANION GAP 13.9 mEq/L (7-13); CHLORIDE,CL 102 mmol/L (98-107); SODIUM,NA 140 mmol/L (136-145)
[2021-06-03 14:55] LABS: CORONAVIRUS COVID-19 NAA NEGATIVE (NEGATIVE)
== END 2021-06-03 15:12 | disposition home or self-care (01) ==
LOC: DL.ED 13:55
DX: R05 Cough (principal); F17.210 Nicotine dependence, cigarettes, uncomplicated; E11.9 Type 2 diabetes mellitus without complications; M19.90 Unspecified osteoarthritis, unspecified site; Z79.899 Other long term (current) drug therapy; Z79.84 Long term (current) use of oral hypoglycemic drugs; Z79.82 Long term (current) use of aspirin; E78.00 Pure hypercholesterolemia, unspecified; Z20.822 Contact with and (suspected) exposure to COVID-19
CPT/HCPCS: 0240U; 36415; 80053; 83880; 84484; 85025; 86140; 99283; 99284

== ENCOUNTER 2021-09-13 04:56 | Emergency (ER) | payer SELFPAY ==
[2021-09-13 05:04] VITALS: BP 140/75; PULSE 110
--- NOTE | 2021-09-13 05:20 | EDM.PDOC ---
ED HPI GENERAL MEDICAL PROBLEM - General Chief Complaint: Respiratory Problem Stated Complaint: TROUBLE BREATHING Time Seen by Provider: 09/13/21 05:19 Source of Information: Reports: Patient, RN History Limitations: Reports: No Limitations - History of Present Illness INITIAL COMMENTS - FREE TEXT/NARRATIVE: ED with c/o COPD, SOB productive cough and fever since Saturday, worse tonight. Last Duo neb at 0200. Prior COVID. No nausea or vomiting - Related Data Allergies Allergy/AdvReac Type Severity Reaction Status Date / Time No Known Allergies Allergy Verified 09/13/21 05:04 Home Meds: Home Meds glyBURIDE [Glyburide] 5 mg PO BID 08/25/14 [History] metFORMIN [Glucophage] 1,000 mg PO BID 08/25/14 [History] Albuterol Sulfate [Albuterol Sulfate HFA] 2 puff INH Q6H PRN 12/23/14 [History] Aspirin [[place] Aspirin EC] 81 mg PO DAILY 12/23/14 [History] Vitamin E (Dl,Tocopheryl Acet) [Vitamin E] 180 unit PO BEDTIME 01/17/18 [History] traZODone HCl [Trazodone HCl] 50 mg PO BEDTIME 10/25/18 [History] Albuterol/Ipratropium [DuoNeb 3.0-0.5 MG/3 ML] 3 ml NEB Q4H PRN #30 neb 12/15/19 [Rx] DULoxetine [Cymbalta] 30 mg PO DAILY 04/27/20 [History] Ibuprofen [Motrin] 600 mg PO ASDIRECTED 05/10/20 [History] Montelukast [Singulair] 10 mg PO DAILY 09/13/21 [History] atorvaSTATin [Lipitor] 20 mg PO DAILY 09/13/21 [History] Past Medical History HEENT History: Reports: Cataract, Impaired Vision Other HEENT History: UPPER DENTURES Cardiovascular History: Reports: High Cholesterol, SOB on Exertion Respiratory History: Reports: Asthma, Bronchitis, Recurrent, COPD, SOB Gastrointestinal History: Reports: None Genitourinary History: Reports: None Musculoskeletal History: Reports: Arthritis, Back Pain, Chronic, Osteoarthritis Neurological History: Reports: Neuropathy, Peripheral Psychiatric History: Reports: None Endocrine/Metabolic History: Reports: Diabetes, Type II Hematologic History: Reports: None Immunologic History: Reports: None Oncologic (Cancer) History: Reports: None Dermatologic History: Reports: None - Infectious Disease History Infectious Disease History: Reports: Chicken Pox, Measles, Mumps, Novel Coronavirus - Past Surgical History Head Surgeries/Procedures: Reports: None HEENT Surgical History: Reports: Cataract Surgery, Oral Surgery Cardiovascular Surgical History: Reports: None Respiratory Surgical History: Reports: None GI Surgical History: Reports: None Male Surgical History: Reports: None Endocrine Surgical History: Reports: None Neurological Surgical History: Reports: None Musculoskeletal Surgical History: Reports: Arthroscopic Knee Oncologic Surgical History: Reports: None Dermatological Surgical History: Reports: None Social & Family History - Family History Family Medical History: No Pertinent Family History Other Respiratory Family Hisory: father from lung cancer Endocrine/Metabolic: Reports: Diabetes, type II Other Endocrine/Metabolic Family History: mother has DM and possibley hypercholesterolemia - Tobacco Use Tobacco Use Status *Q: Current Every Day Tobacco User Years of Tobacco use: 50 Packs/Tins Daily: 0.3 Second Hand Smoke Exposure: Yes - Caffeine Use Caffeine Use: Reports: Coffee Other Caffeine Use: 24 cups daily - Recreational Drug Use Recreational Drug Use: No - Living Situation & Occupation Living situation: Reports: ED ROS GENERAL - Review of Systems Review Of Systems: Comprehensive ROS is negative, except as noted in HPI. ED EXAM, GENERAL - Physical Exam Exam: See Below Exam Limited By: No Limitations General Appearance: Alert, Mild Distress Eye Exam: Bilateral Eye: EOMI, PERRL Ears: Normal External Exam, Hearing Grossly Normal Nose: Normal Inspection Throat/Mouth: Normal Voice Neck: Normal Inspection Respiratory/Chest: Decreased Breath Sounds, Wheezing (inspiratory, expiratory through out) Cardiovascular: Normal Peripheral Pulses, Regular Rate, Rhythm GI/Abdominal: Normal Bowel Sounds Extremities: Normal Inspection, Normal Range of Motion Neurological: Alert, Oriented, Normal Cognition Psychiatric: Normal Affect, Normal Mood Skin Exam: Warm, Dry, Intact, Normal Color #1 Interpretation EKG Date: 09/13/21 Time: 05:16 Rhythm: NSR Rate (Beats/Min): 105 [place]: RAD-Right [place] Deviation P-Wave: Present QRS: Normal ST-T: Normal Comparison: NA - No Prior EKG Course - Vital Signs Last Recorded V/S: Last Vital Signs Temp 100.1 F 09/13/21 04:59 Pulse 110 H 09/13/21 04:59 Resp 24 H 09/13/21 04:59 BP 140/75 09/13/21 04:59 Pulse Ox 92 L 09/13/21 04:59 - Orders/Labs/Meds Orders: Active Orders 24 hr Category Date Time Status RT Aerosol Therapy [RC] ASDIRECTED Care 09/13/21 05:28 Active CXR [Chest 1V Frontal] [CR] Urgent Exams 09/13/21 05:09 Ordered CULTURE BLOOD [BC] Stat Lab 09/13/21 05:05 Received CULTURE BLOOD [BC] Stat Lab 09/13/21 05:20 Received Blood Culture x2 Reflex Set [OM.PC] Stat Oth 09/13/21 05:09 Ordered Labs: Laboratory Tests 09/13/21 09/13/21 09/13/21 Range/Units 05:05 05:05 05:05 WBC 10.9 H (5.0-10.0) 10^3/uL RBC 4.89 (4.6-6.2) 10^6/uL Hgb 14.1 (14.0-18.0) g/dL Hct 42.4 (40.0-54.0) % MCV 86.7 (80-100) fL MCH 28.8 (27.0-34.0) pg MCHC 33.3 (33.0-35.0) g/dL Plt Count 350 D (150-450) 10^3/uL Neut % (Auto) 62.7 (42.2-75.2) % Lymph % (Auto) 15.8 L (20.5-50.1) % [place] % (Auto) 10.4 H (2-8) % Eos % (Auto) 10.7 H (1.0-3.0) % Baso % (Auto) 0.4 (0.0-1.0) % PT (9.0-12.0) SEC INR (0.9-1.2) Sodium 141 (136-145) mmol/L Potassium 3.7 (3.5-5.1) mmol/L Chloride 104 (98-107) mmol/L Carbon Dioxide 28 (21-32) mmol/L Anion Gap 12.7 (7-13) mEq/L BUN 11 (7-18) mg/dL Creatinine 0.87 (0.70-1.30) mg/dL Est Cr Clr Drug Dosing 79.44 mL/min Estimated GFR (MDRD) > 60 BUN/Creatinine Ratio 12.6 (No establ ref range) Glucose 89 (70-99) mg/dL Lactic Acid 1.1 (0.4-2.0) mmol/L Calcium 8.7 (8.5-10.1) mg/dL Magnesium 1.9 (1.8-2.4) mg/dL Total Bilirubin 0.4 (0.2-1.0) mg/dL AST 15 (15-37) U/L ALT 25 (16-63) U/L Alkaline Phosphatase 100 (46-116) U/L B-Natriuretic Peptide 9 (0-100) pg/ml Total Protein 7.2 (6.4-8.2) g/dL Albumin 3.5 (3.4-5.0) g/dL Globulin 3.7 Albumin/Globulin Ratio 0.9 09/13/21 Range/Units 05:20 WBC (5.0-10.0) 10^3/uL RBC (4.6-6.2) 10^6/uL Hgb (14.0-18.0) g/dL Hct (40.0-54.0) % MCV (80-100) fL MCH (27.0-34.0) pg MCHC (33.0-35.0) g/dL Plt Count (150-450) 10^3/uL Neut % (Auto) (42.2-75.2) % Lymph % (Auto) (20.5-50.1) % [place] % (Auto) (2-8) % Eos % (Auto) (1.0-3.0) % Baso % (Auto) (0.0-1.0) % PT 9.9 (9.0-12.0) SEC INR 1.0 (0.9-1.2) Sodium (136-145) mmol/L Potassium (3.5-5.1) mmol/L Chloride (98-107) mmol/L Carbon Dioxide (21-32) mmol/L Anion Gap (7-13) mEq/L BUN (7-18) mg/dL Creatinine (0.70-1.30) mg/dL Est Cr Clr Drug Dosing mL/min Estimated GFR (MDRD) BUN/Creatinine Ratio (No establ ref range) Glucose (70-99) mg/dL Lactic Acid (0.4-2.0) mmol/L Calcium (8.5-10.1) mg/dL Magnesium (1.8-2.4) mg/dL Total Bilirubin (0.2-1.0) mg/dL AST (15-37) U/L ALT (16-63) U/L Alkaline Phosphatase (46-116) U/L B-Natriuretic Peptide (0-100) pg/ml Total Protein (6.4-8.2) g/dL Albumin (3.4-5.0) g/dL Globulin Albumin/Globulin Ratio Meds: Medications Discontinued Medications Generic Name Dose Route Start Last Admin Trade Name Freq PRN Reason Stop Dose Admin Albuterol 2.5 mg 09/13/21 05:28 09/13/21 05:33 Albuterol 0.083% 2.5 Mg/3 Ml Neb Soln NEB 09/13/21 05:29 2.5 mg ONETIME ONE Administration Azithromycin 500 mg 09/13/21 06:27 Azithromycin 250 Mg Tab PO 09/13/21 06:28 ONETIME ONE Methylprednisolone Sodium Succinate 125 mg 09/13/21 05:28 09/13/21 05:34 Methylprednisolone Sodium Succinate 125 Mg/2 Ml Sdv IVPUSH 09/13/21 05:29 125 mg ONETIME ONE Administration - Re-Assessments/Exams Free Text/Narrative Re-Assessment/Exam: 09/13/21 06:30 Improved air exchange, states ready to go home. Has Nebulizer solution available at home. Discharge instructions reviewed Departure - Departure Time of Disposition: 06:31 Disposition: Home, Self-Care 01 Condition: Fair Clinical Impression: Acute exacerbation of chronic obstructive pulmonary disease (COPD) - Discharge Information *PRESCRIPTION DRUG MONITORING PROGRAM REVIEWED*: No *COPY OF PRESCRIPTION DRUG MONITORING REPORT IN PATIENT ANNEL: No Instructions: Chronic Obstructive Pulmonary Disease, [id number] Forms: ED Department Discharge Additional Instructions: prednisone taper humidifier guaifenesin per label instructions for cough azithromycin 25omg one daily for 4 days Sepsis Event Note (ED) - Focused Exam Vital Signs: Vital Signs Temp Pulse Resp BP Pulse Ox 09/13/21 04:59 100.1 F 110 H 24 H 140/75 92 L - My Orders Last 24 Hours: My Active Orders 09/13/21 05:05 CULTURE BLOOD [BC] Stat 09/13/21 05:09 CXR [Chest 1V Frontal] [CR] Urgent Blood Culture x2 Reflex Set [OM.PC] Stat 09/13/21 05:20 CULTURE BLOOD [BC] Stat 09/13/21 05:28 RT Aerosol Therapy [RC] ASDIRECTED - Assessment/Plan Last 24 Hours: My Active Orders 09/13/21 05:05 CULTURE BLOOD [BC] Stat 09/13/21 05:09 CXR [Chest 1V Frontal] [CR] Urgent Blood Culture x2 Reflex Set [OM.PC] Stat 09/13/21 05:20 CULTURE BLOOD [BC] Stat 09/13/21 05:28 RT Aerosol Therapy [RC] ASDIRECTED
[2021-09-13] MEDS ORDERED: methylPREDNISolone Sodium Succinate 125 MG/2 ML SDV IVPUSH ONE (05:28)
[2021-09-13] MEDS ORDERED: Albuterol 0.083% 2.5 MG/3 ML Neb Soln NEB ONE (05:28)
[2021-09-13 05:44] LABS: ANION GAP 12.7 mEq/L (7-13); CHLORIDE,CL 104 mmol/L (98-107); SODIUM,NA 141 mmol/L (136-145)
[2021-09-13] MEDS ORDERED: Azithromycin 250 MG Tab PO ONE (06:27)
--- NOTE | 2021-09-13 07:13 | CR ---
PROCEDURE INFORMATION: Exam: XR Chest Exam date and time: 09/13/2021 5:30 AM Age: 61 years old Clinical indication: Other: SOB fever TECHNIQUE: Imaging protocol: XR of the chest. Views: 1 view. COMPARISON: CT Chest w Cont, Chest w Cont 10/01/2020 7:38 PM FINDINGS: Lungs: Unremarkable. No consolidation. Pleural spaces: Unremarkable. No pleural effusion. No pneumothorax. Heart/Mediastinum: Unremarkable. No cardiomegaly. Bones/joints: Unremarkable. IMPRESSION: No acute findings.
== END 2021-09-13 06:38 | disposition home or self-care (01) ==
LOC: DL.ED 04:56
DX: J44.1 Chronic obstructive pulmonary disease with (acute) exacerbation (principal); E78.00 Pure hypercholesterolemia, unspecified; M19.90 Unspecified osteoarthritis, unspecified site; E11.42 Type 2 diabetes mellitus with diabetic polyneuropathy; Z72.0 Tobacco use; Z79.82 Long term (current) use of aspirin; Z79.84 Long term (current) use of oral hypoglycemic drugs; Z79.899 Other long term (current) drug therapy
CPT/HCPCS: 36415; 71045; 80053; 83605; 83735; 83880; 85025; 85610; 87040; 93005; 96374; 99285; A9270; J2930; J7613-GY

== ENCOUNTER 2022-01-04 11:09 | Emergency (ER) | payer SELFPAY ==
[2022-01-04] MEDS ORDERED: Albuterol/Ipratropium 3.0-0.5 MG/3 ML Neb Soln NEB ONE (11:35)
[2022-01-04] MEDS ORDERED: methylPREDNISolone Sodium Succinate 125 MG/2 ML SDV IVPUSH ONE (11:35)
[2022-01-04 11:52] VITALS: BP 151/80; PULSE 104
[2022-01-04 12:18] LABS: ANION GAP 13.3 mEq/L (7-13); CHLORIDE,CL 103 mmol/L (98-107); SODIUM,NA 141 mmol/L (136-145)
[2022-01-04 12:44] LABS: CORONAVIRUS COVID-19 NAA NEGATIVE (NEGATIVE); RESPIRATORY SYNCYTIAL VIR NAA NEGATIVE (NEGATIVE)
== END 2022-01-04 13:15 | disposition home or self-care (01) ==
LOC: DL.ED 11:09
DX: J44.1 Chronic obstructive pulmonary disease with (acute) exacerbation (principal); F17.210 Nicotine dependence, cigarettes, uncomplicated; E78.00 Pure hypercholesterolemia, unspecified; E11.42 Type 2 diabetes mellitus with diabetic polyneuropathy; Z79.84 Long term (current) use of oral hypoglycemic drugs; Z79.899 Other long term (current) drug therapy; Z20.822 Contact with and (suspected) exposure to COVID-19
CPT/HCPCS: 0241U; 36415; 71045; 80053; 83880; 84484; 85025; 86140; 96374; 99285-25; J2930; J7620-GY

== ENCOUNTER 2022-03-19 18:25 | Emergency (ER) | payer SELFPAY ==
[2022-03-19] MEDS ORDERED: Sodium Chloride 0.9% 10 ML Syringe FLUSH PRN (18:28)
[2022-03-19 18:36] VITALS: BP 148/82; PULSE 96
[2022-03-19 18:54] LABS: ANION GAP 15.9 mEq/L (7-13); CHLORIDE,CL 101 mmol/L (98-107); SODIUM,NA 141 mmol/L (136-145)
== END 2022-03-19 19:38 | disposition home or self-care (01) ==
LOC: DL.ED 18:25
DX: R07.9 Chest pain, unspecified (principal); E78.00 Pure hypercholesterolemia, unspecified; J45.909 Unspecified asthma, uncomplicated; E11.40 Type 2 diabetes mellitus with diabetic neuropathy, unspecified; Z86.16 Personal history of COVID-19; Z79.899 Other long term (current) drug therapy; Z79.84 Long term (current) use of oral hypoglycemic drugs; Z79.82 Long term (current) use of aspirin
CPT/HCPCS: 36415; 71045; 80053; 83605; 83690; 83880; 84484; 85025; 86140; 93005; 99285; J3490

== ENCOUNTER 2022-07-25 09:06 | Emergency (ER) | payer OTHER ==
[2022-07-25] MEDS ORDERED: Albuterol/Ipratropium 3.0-0.5 MG/3 ML Neb Soln INH ONE (22:15)
[2022-07-25] MEDS ORDERED: methylPREDNISolone Sodium Succinate 125 MG/2 ML SDV IV ONE (22:25)
[2022-07-25] MEDS ORDERED: cefTRIAXone 2 GM in Sodium Chloride 0.9% 50 ML IV ONE (22:44)
[2022-08-20 13:19] LABS: ANION GAP 13.7 mEq/L (7-13); CHLORIDE,CL 101 mmol/L (98-107); ESTIMATED GFR 83 mL/min (>=60); SODIUM,NA 141 mmol/L (136-145)
== END 2022-07-25 23:06 | disposition home or self-care (01) ==
LOC: DL.ED 09:06
DX: J44.1 Chronic obstructive pulmonary disease with (acute) exacerbation (principal); E11.9 Type 2 diabetes mellitus without complications; F17.210 Nicotine dependence, cigarettes, uncomplicated
CPT/HCPCS: 36415; 71045; 80053; 83605; 85025; 94640; 96374; 96375; 99284; 99285; J0696; J2930; J7620-GY

== ENCOUNTER 2022-12-25 15:09 | Inpatient (IN) | payer OTHER ==
[2022-12-25] MEDS ORDERED: Albuterol/Ipratropium 3.0-0.5 MG/3 ML Neb Soln NEB ONE ×3 (15:26→17:36)
[2022-12-25] MEDS ORDERED: methylPREDNISolone Sodium Succinate 125 MG/2 ML SDV IVPUSH ONE (15:26)
[2022-12-25] MEDS: Sodium Chloride 0.9% 10 ML Syringe FLUSH PRN ×4 (15:36→20:59)
[2022-12-25 15:57] LABS: PTT,PARTIAL THROMBOPLSTIN TIME 27.2 SEC (22.0-34.0)
[2022-12-25 16:19] LABS: ANION GAP 14.5 mEq/L (7-13); CHLORIDE,CL 100 mmol/L (98-107); SODIUM,NA 139 mmol/L (136-145)
[2022-12-25 16:20] LABS: CORONAVIRUS COVID-19 NAA NEGATIVE (NEGATIVE); RESPIRATORY SYNCYTIAL VIR NAA NEGATIVE (NEGATIVE)
[2022-12-25 16:24] LABS: ESTIMATED GFR 84 mL/min (>=60)
[2022-12-25] MEDS ORDERED: cefTRIAXone 2 GM Vial IVPUSH ONE (16:47)
[2022-12-25] MEDS ORDERED: Magnesium Sulfate/Water 2 GM in Premix Bag 1 BAG IV ONE ×2 (17:35→17:36)
[2022-12-25] MEDS ORDERED: Docusate Sodium 100 MG Cap PO PRN (19:43)
[2022-12-25] MEDS ORDERED: Ondansetron 4 MG/2 ML SDV IVPUSH PRN (19:43)
[2022-12-25] MEDS ORDERED: Bisacodyl 5 MG Tab PO PRN (19:43)
[2022-12-25] MEDS ORDERED: Acetaminophen 325 MG Tab PO PRN (19:43)
[2022-12-25] MEDS ORDERED: Acetaminophen/HYDROcodone 325-5 MG Tab PO PRN (19:43)
[2022-12-25] MEDS ORDERED: Ibuprofen 600 MG Tab PO SCH (19:45)
[2022-12-25] MEDS ORDERED: cefTRIAXone 1 GM Vial IVPUSH ONE (19:47)
[2022-12-25] MEDS ORDERED: Azithromycin 250 MG Tab PO ONE (19:48)
[2022-12-25] MEDS ORDERED: Melatonin 3 MG Tab PO PRN (19:52)
[2022-12-25] MEDS ORDERED: Glucagon,Human Recombinant 1 MG Vial IM PRN (19:52)
[2022-12-25] MEDS ORDERED: 50% Dextrose in Water 50 ML Syringe IVPUSH PRN (19:52)
[2022-12-25] MEDS: methylPREDNISolone Sodium Succinate 40 MG/1 ML SDV IVPUSH SCH (20:57)
[2022-12-25] MEDS: metFORMIN 500 MG Tab PO SCH (20:57)
[2022-12-25] MEDS: Vitamin E (dl-alpha-tocopherol acetate) 400 Unit Cap PO SCH (20:58)
[2022-12-25] MEDS: glyBURIDE 5 MG Tab PO SCH (20:58)
[2022-12-25] MEDS: Albuterol/Ipratropium 3.0-0.5 MG/3 ML Neb Soln NEB PRN (23:41)
[2022-12-26] MEDS: methylPREDNISolone Sodium Succinate 40 MG/1 ML SDV IVPUSH SCH ×3 (03:48→20:24)
[2022-12-26] MEDS ORDERED: Ibuprofen 600 MG Tab PO PRN (06:19)
[2022-12-26] MEDS: Formoterol/Mometasone 100-5 MCG 8.8 GM Inhaler IH SCH ×2 (07:47→17:35)
[2022-12-26] MEDS: Insulin Lispro 100 Units/ML 3 ML Vial SUBCUT SCH ×3 (08:23→17:34)
[2022-12-26] MEDS: Montelukast 10 MG Tab PO SCH (08:24)
[2022-12-26] MEDS: Aspirin 81 MG Tab.EC PO SCH (08:24)
[2022-12-26] MEDS: Azithromycin 250 MG Tab PO SCH (08:24)
[2022-12-26] MEDS: DULoxetine 30 MG Cap PO SCH (08:24)
[2022-12-26] MEDS: atorvaSTATin 20 MG Tab PO SCH (08:24)
[2022-12-26] MEDS: metFORMIN 500 MG Tab PO SCH ×2 (08:25→20:25)
[2022-12-26] MEDS: glyBURIDE 5 MG Tab PO SCH ×2 (08:25→20:26)
[2022-12-26] MEDS: Tiotropium Bromide 4 GM Inhalation Spray (2.5mcg/1 dose; 10 doses) INH SCH (08:25)
[2022-12-26] MEDS: Enoxaparin 40 MG/0.4 ML Syringe SUBCUT SCH (08:25)
[2022-12-26] MEDS: Nicotine 21 MG/24 Hr Patch TRDERM SCH (08:25)
[2022-12-26] MEDS: Sodium Chloride 0.9% 10 ML Syringe FLUSH PRN (08:27)
[2022-12-26] MEDS: Albuterol/Ipratropium 3.0-0.5 MG/3 ML Neb Soln NEB PRN (14:33)
[2022-12-26] MEDS: Vitamin E (dl-alpha-tocopherol acetate) 400 Unit Cap PO SCH (20:26)
[2022-12-27] MEDS: methylPREDNISolone Sodium Succinate 40 MG/1 ML SDV IVPUSH SCH ×2 (04:25→12:09)
[2022-12-27] MEDS: Albuterol/Ipratropium 3.0-0.5 MG/3 ML Neb Soln NEB PRN (04:25)
[2022-12-27] MEDS: Formoterol/Mometasone 100-5 MCG 8.8 GM Inhaler IH SCH (06:17)
[2022-12-27] MEDS: Insulin Lispro 100 Units/ML 3 ML Vial SUBCUT SCH ×2 (08:56→12:03)
[2022-12-27] MEDS: Azithromycin 250 MG Tab PO SCH (08:58)
[2022-12-27] MEDS: atorvaSTATin 20 MG Tab PO SCH (08:58)
[2022-12-27] MEDS: metFORMIN 500 MG Tab PO SCH (08:58)
[2022-12-27] MEDS: Aspirin 81 MG Tab.EC PO SCH (08:58)
[2022-12-27] MEDS: Montelukast 10 MG Tab PO SCH (08:58)
[2022-12-27] MEDS: glyBURIDE 5 MG Tab PO SCH (08:58)
[2022-12-27] MEDS: Tiotropium Bromide 4 GM Inhalation Spray (2.5mcg/1 dose; 10 doses) INH SCH (08:59)
[2022-12-27] MEDS: DULoxetine 30 MG Cap PO SCH (08:59)
[2022-12-27] MEDS: Nicotine 21 MG/24 Hr Patch TRDERM SCH (08:59)
[2022-12-27] MEDS: Enoxaparin 40 MG/0.4 ML Syringe SUBCUT SCH (08:59)
[2022-12-27 13:55] VITALS: BP 151/71; PULSE 100
== END 2022-12-27 14:50 | disposition home or self-care (01) | DRG 189 ==
LOC: DL.ED 15:09 → DL.MS 18:17 → DL.ED 18:29
PROVIDERS: ADMIT Internal Medicine; ATTEND Internal Medicine
DX: J96.21 Acute and chronic respiratory failure with hypoxia (principal); J44.1 Chronic obstructive pulmonary disease with (acute) exacerbation; E78.5 Hyperlipidemia, unspecified; H54.7 Unspecified visual loss; M19.90 Unspecified osteoarthritis, unspecified site; G89.29 Other chronic pain; M54.9 Dorsalgia, unspecified; E11.42 Type 2 diabetes mellitus with diabetic polyneuropathy; F17.210 Nicotine dependence, cigarettes, uncomplicated; Z20.822 Contact with and (suspected) exposure to COVID-19; Z79.51 Long term (current) use of inhaled steroids; Z79.899 Other long term (current) drug therapy; Z79.4 Long term (current) use of insulin; Z79.82 Long term (current) use of aspirin; Z99.81 Dependence on supplemental oxygen; Z98.49 Cataract extraction status, unspecified eye; Z98.890 Other specified postprocedural states; Z83.3 Family history of diabetes mellitus
CPT/HCPCS: 0241U; 36415; 71045; 80053; 82947; 83605; 83880; 84145; 84484; 85025; 85610; 85730; 86140; 87040; 93005; 93010; 94640; 96365; 96375; 96376; 99222; 99239; 99284; 99285-25; A9270-GY; J0696; J1650; J1815-GY; J2920; J2930; J3475; J3490; J7620-GY

== ENCOUNTER 2023-09-19 13:54 | Inpatient (IN) | payer OTHER ==
[2023-09-19] MEDS ORDERED: Albuterol 0.083% 2.5 MG/3 ML Neb Soln NEB ONE (14:14)
[2023-09-19] MEDS ORDERED: Magnesium Sulfate/Water 2 GM in Premix Bag 1 BAG IV ONE (14:15)
[2023-09-19] MEDS ORDERED: Dexamethasone 4 MG/ML SDV IVPUSH ONE (14:15)
[2023-09-19] MEDS ORDERED: Sodium Chloride 0.9% 1,000 ML IV ONE ×2 (14:19→14:55)
[2023-09-19] MEDS: Sodium Chloride 0.9% 10 ML Syringe FLUSH PRN ×2 (14:25→22:32)
[2023-09-19 14:33] LABS: BASOPHILS PERCENT AUTO 0.1 % (0.0-1.0); EOSINOPHILS PERCENT AUTO 1.1 % (1.0-3.0); HEMATOCRIT 39.8 % (40.0-54.0); HEMOGLOBIN 13.3 g/dL (14.0-18.0); LYMPHOCYTES PERCENT AUTO 6.4 % (20.5-50.1); MEAN CORPUSCULAR HEMOGLOBIN 29.5 pg (27.0-34.0); MEAN CORPUSCULAR HGB CONC 33.4 g/dL (33.0-35.0); MEAN CORPUSCULAR VOLUME 88.2 fL (80-100); NEUTROPHILS PERCENT AUTO 83.4 % (42.2-75.2); PLATELET COUNT,PLT 326 10^3/uL (150-450); RED BLOOD CELL COUNT 4.51 10^6/uL (4.6-6.2); WHITE BLOOD CELL COUNT,WBC 23.6 10^3/uL (5.0-10.0)
[2023-09-19 14:44] LABS: CORONAVIRUS COVID-19 NAA NEGATIVE (NEGATIVE); INFLUENZA A NAA NEGATIVE (NEGATIVE); INFLUENZA B NAA NEGATIVE (NEGATIVE); RESPIRATORY SYNCYTIAL VIR NAA NEGATIVE (NEGATIVE)
[2023-09-19] MEDS ORDERED: Piperacillin/Tazobactam 3.375 GM in Sodium Chloride 0.9% 100 ML IV ONE (14:54)
[2023-09-19 15:00] LABS: LACTIC ACID 2.5 mmol/L (0.4-2.0)
[2023-09-19 15:02] LABS: A/G RATIO 0.9; ALBUMIN 3.5 g/dL (3.4-5.0); BILIRUBIN TOTAL 0.8 mg/dL (0.2-1.0); BUN/CREATININE RATIO 16.3 (No establ ref range); C-REACTIVE PROTEIN 19.59 ng/dL (<=0.50); CALCIUM 9.1 mg/dL (8.5-10.1); CREATININE 1.23 mg/dL (0.70-1.30); EST CRCL DRUG DOSING (CG) 54.75 mL/min; PROTEIN TOTAL,TP 7.5 g/dL (6.4-8.2)
[2023-09-19] MEDS ORDERED: Acetaminophen 500 MG Tab PO ONE (16:13)
[2023-09-19] MEDS ORDERED: Zolpidem 5 MG Tab PO PRN (17:14)
[2023-09-19] MEDS ORDERED: Ondansetron 4 MG/2 ML SDV IVPUSH PRN (17:14)
[2023-09-19] MEDS ORDERED: Albuterol/Ipratropium 3.0-0.5 MG/3 ML Neb Soln NEB PRN (17:14)
[2023-09-19] MEDS ORDERED: HYDROmorphone 0.5 MG/0.5 ML Syringe IVPUSH PRN (17:14)
[2023-09-19] MEDS ORDERED: Acetaminophen 325 MG Tab PO PRN (17:14)
[2023-09-19] MEDS ORDERED: Magnesium Hydroxide 400 MG/5 ML Susp 30 ML Cup PO PRN (17:14)
[2023-09-19] MEDS ORDERED: Naloxone 2 MG/2 ML Syringe IVPUSH PRN (17:14)
[2023-09-19] MEDS ORDERED: Polyethylene Glycol 3350 Powder 17 GM Packet PO PRN (17:14)
[2023-09-19] MEDS ORDERED: Bisacodyl 5 MG Tab PO PRN (17:14)
[2023-09-19] MEDS ORDERED: guaiFENesin 600 MG Tab.ER PO ONE (17:18)
[2023-09-19] MEDS ORDERED: guaiFENesin/Dextromethorphan 100-10 MG/5 ML Soln 5 ML Cup PO PRN (17:18)
[2023-09-19] MEDS ORDERED: Famotidine 20 MG/2 ML SDV IVPUSH ONE (17:20)
[2023-09-19 17:35] LABS: HEMOGLOBIN A1C 6.1 % (<5.7)
[2023-09-19] MEDS ORDERED: 50% Dextrose in Water 50 ML Syringe IVPUSH PRN (17:51)
[2023-09-19] MEDS ORDERED: Glucagon,Human Recombinant 1 MG Vial IM PRN (17:51)
[2023-09-19] MEDS ORDERED: Formoterol/Mometasone 200-5 MCG 8.8 GM Inhaler IH SCH (18:00)
[2023-09-19] MEDS: Magnesium Oxide 400 MG Tab PO SCH (18:02)
[2023-09-19] MEDS ORDERED: Azithromycin 500 MG in Sodium Chloride 0.9% 250 ML IV ONE (21:00)
[2023-09-19] MEDS ORDERED: glyBURIDE 5 MG Tab PO SCH (21:00)
[2023-09-19] MEDS: methylPREDNISolone Sodium Succinate 125 MG/2 ML SDV IVPUSH SCH (22:10)
[2023-09-19] MEDS: Saccharomyces Boulardii (Probiotic) 250 MG Cap PO SCH (22:18)
[2023-09-19] MEDS: metFORMIN 500 MG Tab PO SCH (22:18)
[2023-09-19] MEDS: Nicotine 21 MG/24 Hr Patch TRDERM SCH (22:19)
[2023-09-19] MEDS: glyBURIDE 5 MG Tab PO SCH (22:22)
[2023-09-19] MEDS: Albuterol/Ipratropium 3.0-0.5 MG/3 ML Neb Soln NEB SCH (22:23)
[2023-09-20] MEDS: Albuterol/Ipratropium 3.0-0.5 MG/3 ML Neb Soln NEB SCH ×6 (03:31→21:15)
[2023-09-20] MEDS: methylPREDNISolone Sodium Succinate 125 MG/2 ML SDV IVPUSH SCH ×3 (05:40→21:11)
[2023-09-20] MEDS ORDERED: Tiotropium Bromide 4 GM Inhalation Spray (2.5mcg/1 dose; 10 doses) INH SCH (06:00)
[2023-09-20 06:34] LABS: BASOPHILS PERCENT AUTO 0.1 % (0.0-1.0); HEMATOCRIT 35.8 % (40.0-54.0); LYMPHOCYTES PERCENT AUTO 4.4 % (20.5-50.1); MEAN CORPUSCULAR HEMOGLOBIN 29.3 pg (27.0-34.0); MEAN CORPUSCULAR HGB CONC 33.5 g/dL (33.0-35.0); MEAN CORPUSCULAR VOLUME 87.5 fL (80-100); MONOCYTES PERCENT AUTO 2.5 % (2-8); PLATELET COUNT,PLT 317 10^3/uL (150-450); RED BLOOD CELL COUNT 4.09 10^6/uL (4.6-6.2); WHITE BLOOD CELL COUNT,WBC 20.5 10^3/uL (5.0-10.0)
[2023-09-20 06:48] LABS: ALBUMIN 3.1 g/dL (3.4-5.0); ANION GAP 14.4 mEq/L (7-13); BILIRUBIN TOTAL 0.4 mg/dL (0.2-1.0); BUN/CREATININE RATIO 17.4 (No establ ref range); C-REACTIVE PROTEIN 18.14 ng/dL (<=0.50); CALCIUM 8.5 mg/dL (8.5-10.1); CREATININE 0.92 mg/dL (0.70-1.30); EST CRCL DRUG DOSING (CG) 70.56 mL/min; MAGNESIUM 1.8 mg/dL (1.8-2.4); POTASSIUM,K 3.4 mmol/L (3.5-5.1); PROTEIN TOTAL,TP 6.8 g/dL (6.4-8.2)
[2023-09-20 06:50] LABS: A/G RATIO 0.84
[2023-09-20] MEDS: Magnesium Oxide 400 MG Tab PO SCH ×2 (08:21→17:23)
[2023-09-20] MEDS: glyBURIDE 5 MG Tab PO SCH ×2 (08:21→17:22)
[2023-09-20] MEDS: Saccharomyces Boulardii (Probiotic) 250 MG Cap PO SCH ×2 (08:21→21:09)
[2023-09-20] MEDS: guaiFENesin 600 MG Tab.ER PO SCH ×2 (08:21→21:09)
[2023-09-20] MEDS: Famotidine 20 MG Tab PO SCH ×2 (08:21→21:09)
[2023-09-20] MEDS: metFORMIN 500 MG Tab PO SCH ×2 (08:22→21:08)
[2023-09-20] MEDS: Nicotine 21 MG/24 Hr Patch TRDERM SCH (08:23)
[2023-09-20] MEDS: Insulin Lispro 100 Units/ML 3 ML Vial SUBCUT SCH ×3 (08:29→17:23)
[2023-09-20] MEDS: cefTRIAXone 1 GM Vial IVPUSH SCH (09:51)
[2023-09-20] MEDS: Azithromycin 500 MG in Sodium Chloride 0.9% 250 ML IV SCH (09:55)
[2023-09-20] MEDS ORDERED: Magnesium Sulfate/Water 2 GM in Premix Bag 1 BAG IV ONE (11:45)
[2023-09-20] MEDS ORDERED: Potassium Chloride 10 MEQ Tab.ER PO ONE (12:00)
[2023-09-20] MEDS: DULoxetine 30 MG Cap PO SCH (17:23)
[2023-09-20] MEDS ORDERED: Formoterol/Mometasone 200-5 MCG 8.8 GM Inhaler IH SCH (18:00)
[2023-09-21] MEDS: Albuterol/Ipratropium 3.0-0.5 MG/3 ML Neb Soln NEB SCH ×3 (01:36→09:10)
[2023-09-21] MEDS: methylPREDNISolone Sodium Succinate 125 MG/2 ML SDV IVPUSH SCH (05:37)
[2023-09-21] MEDS ORDERED: Tiotropium Bromide 4 GM Inhalation Spray (2.5mcg/1 dose; 10 doses) INH SCH (06:00)
[2023-09-21 06:21] LABS: HEMATOCRIT 34.9 % (40.0-54.0); HEMOGLOBIN 11.6 g/dL (14.0-18.0); MEAN CORPUSCULAR HEMOGLOBIN 29.1 pg (27.0-34.0); MEAN CORPUSCULAR HGB CONC 33.2 g/dL (33.0-35.0); MEAN CORPUSCULAR VOLUME 87.7 fL (80-100); PLATELET COUNT,PLT 382 10^3/uL (150-450); RED BLOOD CELL COUNT 3.98 10^6/uL (4.6-6.2); WHITE BLOOD CELL COUNT,WBC 27.6 10^3/uL (5.0-10.0)
[2023-09-21 06:31] LABS: LYMPHOCYTES PERCENT AUTO 5.6 % (20.5-50.1); NEUTROPHILS PERCENT AUTO 88.4 % (42.2-75.2)
[2023-09-21 06:49] LABS: BAND PERCENT MAN 6 %; LYMPHOCYTES PERCENT MAN 7 % (20-50); MONOCYTES PERCENT MAN 4 % (2-8); SEG NEUTROPHILS PERCENT MAN 83 % (42-75)
[2023-09-21 06:50] LABS: ALBUMIN 3.2 g/dL (3.4-5.0); ANION GAP 13.3 mEq/L (7-13); BILIRUBIN TOTAL 0.3 mg/dL (0.2-1.0); BUN/CREATININE RATIO 19.6 (No establ ref range); C-REACTIVE PROTEIN 7.61 ng/dL (<=0.50); CALCIUM 8.6 mg/dL (8.5-10.1); CREATININE 0.97 mg/dL (0.70-1.30); EST CRCL DRUG DOSING (CG) 66.92 mL/min; MAGNESIUM 1.9 mg/dL (1.8-2.4); POTASSIUM,K 4.3 mmol/L (3.5-5.1); PROTEIN TOTAL,TP 7.1 g/dL (6.4-8.2)
[2023-09-21 06:54] LABS: A/G RATIO 0.82
[2023-09-21 08:03] VITALS: BP 122/61; PULSE 95
[2023-09-21] MEDS: Insulin Lispro 100 Units/ML 3 ML Vial SUBCUT SCH (08:49)
[2023-09-21] MEDS: Magnesium Oxide 400 MG Tab PO SCH (08:52)
[2023-09-21] MEDS: guaiFENesin 600 MG Tab.ER PO SCH (08:52)
[2023-09-21] MEDS: Famotidine 20 MG Tab PO SCH (08:52)
[2023-09-21] MEDS: glyBURIDE 5 MG Tab PO SCH (08:52)
[2023-09-21] MEDS: Saccharomyces Boulardii (Probiotic) 250 MG Cap PO SCH (08:53)
[2023-09-21] MEDS: metFORMIN 500 MG Tab PO SCH (08:53)
[2023-09-21] MEDS: DULoxetine 30 MG Cap PO SCH (08:53)
[2023-09-21] MEDS: Nicotine 21 MG/24 Hr Patch TRDERM SCH (08:54)
[2023-09-21] MEDS: Azithromycin 500 MG in Sodium Chloride 0.9% 250 ML IV SCH (08:56)
[2023-09-21] MEDS: cefTRIAXone 1 GM Vial IVPUSH SCH (08:56)
== END 2023-09-21 10:04 | disposition home or self-care (01) | DRG 871 ==
LOC: DL.ED 13:54 → DL.MS 16:41
PROVIDERS: ADMIT Internal Medicine; ATTEND Internal Medicine
DX: A41.9 Sepsis, unspecified organism (principal); J18.9 Pneumonia, unspecified organism; J96.21 Acute and chronic respiratory failure with hypoxia; J44.1 Chronic obstructive pulmonary disease with (acute) exacerbation; J98.11 Atelectasis; E87.1 Hypo-osmolality and hyponatremia; E87.20 Acidosis, unspecified; J44.0 Chronic obstructive pulmonary disease with (acute) lower respiratory infection; E78.00 Pure hypercholesterolemia, unspecified; M19.90 Unspecified osteoarthritis, unspecified site; F17.210 Nicotine dependence, cigarettes, uncomplicated; G89.29 Other chronic pain; M54.9 Dorsalgia, unspecified; E11.42 Type 2 diabetes mellitus with diabetic polyneuropathy; D72.829 Elevated white blood cell count, unspecified; E87.6 Hypokalemia; E11.65 Type 2 diabetes mellitus with hyperglycemia; Z91.148 Patient's other noncompliance with medication regimen for other reason; Z79.51 Long term (current) use of inhaled steroids; Z79.84 Long term (current) use of oral hypoglycemic drugs; Z79.4 Long term (current) use of insulin; Z79.899 Other long term (current) drug therapy; Z98.49 Cataract extraction status, unspecified eye; Z11.52 Encounter for screening for COVID-19; Z79.82 Long term (current) use of aspirin
CPT/HCPCS: 0241U; 36415; 71046; 80053; 82947; 83036; 83605; 83735; 84145; 85025; 86140; 87040; 94640; 94760; 96365; 96367; 96375; 99223; 99232; 99238; 99285; 99285-25; A9270-GY; J0456; J0696; J1100; J1815-GY; J2543; J2930; J3370; J3475; J3490; J7030; J7050; J7613-GY; J7620-GY

== ENCOUNTER 2024-03-11 22:27 | Emergency (ER) | payer OTHER ==
[2024-03-12] MEDS: Sodium Chloride 0.9% 10 ML Syringe FLUSH PRN (00:16)
[2024-03-12 00:20] LABS: BASOPHILS PERCENT AUTO 0.2 % (0.0-1.0); EOSINOPHILS PERCENT AUTO 2.5 % (1.0-3.0); HEMATOCRIT 41.7 % (40.0-54.0); HEMOGLOBIN 13.6 g/dL (14.0-18.0); LYMPHOCYTES PERCENT AUTO 9.7 % (20.5-50.1); MEAN CORPUSCULAR HEMOGLOBIN 28.5 pg (27.0-34.0); MEAN CORPUSCULAR HGB CONC 32.6 g/dL (33.0-35.0); MEAN CORPUSCULAR VOLUME 87.2 fL (80-100); MONOCYTES PERCENT AUTO 9.2 % (2-8); NEUTROPHILS PERCENT AUTO 78.4 % (42.2-75.2); PLATELET COUNT,PLT 301 10^3/uL (150-450); RED BLOOD CELL COUNT 4.78 10^6/uL (4.6-6.2); WHITE BLOOD CELL COUNT,WBC 17.7 10^3/uL (5.0-10.0)
[2024-03-12 00:40] LABS: ALANINE AMINOTRANSFERASE,ALT 30 U/L (16-63); ALBUMIN 3.8 g/dL (3.4-5.0); ALKALINE PHOSPHATASE 103 U/L (46-116); ASPARTATE AMNIOTRANSFERASE,AST 19 U/L (15-37); BILIRUBIN TOTAL 0.4 mg/dL (0.2-1.0); BLOOD UREA NITROGEN,BUN 16 mg/dL (7-18); BUN/CREATININE RATIO 15.2 (No establ ref range); CALCIUM 9.1 mg/dL (8.5-10.1); CARBON DIOXIDE,CO2 28 mmol/L (21-32); CHLORIDE,CL 102 mmol/L (98-107); CREATININE 1.05 mg/dL (0.70-1.30); EST CRCL DRUG DOSING (CG) 64.14 mL/min; GLUCOSE RANDOM 142 mg/dL (70-99); LIPASE 29 U/L (16-77); PROTEIN TOTAL,TP 7.6 g/dL (6.4-8.2); SODIUM,NA 139 mmol/L (136-145)
[2024-03-12 00:44] LABS: ESTIMATED GFR 79 mL/min (>=60)
[2024-03-12] MEDS: Sodium Chloride 0.9% 1,000 ML IV SCH (01:49)
[2024-03-12] MEDS: Iopamidol 612 MG/ML 100 ML Bottle IVPUSH ONE (01:52)
[2024-03-12] MEDS: Ciprofloxacin in D5W 400 MG in Premix Bag 1 BAG IV ONE (05:12)
[2024-03-12] MEDS: metroNIDAZOLE/Normal Saline 500 MG in Premix Bag 1 BAG IV ONE (05:12)
[2024-03-12 06:06] VITALS: BP 148/72; PULSE 100
== END 2024-03-12 06:15 | disposition home or self-care (01) ==
LOC: DL.ED 22:27
DX: K52.9 Noninfective gastroenteritis and colitis, unspecified (principal); I10 Essential (primary) hypertension; E78.00 Pure hypercholesterolemia, unspecified; E11.40 Type 2 diabetes mellitus with diabetic neuropathy, unspecified; Z86.16 Personal history of COVID-19; F17.210 Nicotine dependence, cigarettes, uncomplicated; Z79.82 Long term (current) use of aspirin; Z79.899 Other long term (current) drug therapy; Z79.4 Long term (current) use of insulin; Z79.2 Long term (current) use of antibiotics
CPT/HCPCS: 36415; 74177; 80053; 83690; 84484; 85025; 96361; 96365; 96368; 99284; J0744; J1836; J7030; Q9967; J3490

== ENCOUNTER 2024-08-22 15:04 | Emergency (ER) | payer OTHER, MEDICARE ==
[2024-08-22] MEDS ORDERED: Sodium Chloride 0.9% 10 ML Syringe FLUSH PRN (16:13)
[2024-08-22] MEDS: Sodium Chloride 0.9% 1,000 ML IV ONE (16:25)
[2024-08-22 16:29] LABS: HEMOGLOBIN 12.1 g/dL (14.0-18.0); MEAN CORPUSCULAR HEMOGLOBIN 28.4 pg (27.0-34.0); MEAN CORPUSCULAR HGB CONC 32.7 g/dL (33.0-35.0); MEAN CORPUSCULAR VOLUME 86.9 fL (80-100); PLATELET COUNT,PLT 596 10^3/uL (150-450); RED BLOOD CELL COUNT 4.26 10^6/uL (4.6-6.2); WHITE BLOOD CELL COUNT,WBC 24.3 10^3/uL (5.0-10.0)
[2024-08-22] MEDS: Albuterol/Ipratropium 3.0-0.5 MG/3 ML Neb Soln NEB ONE (16:30)
[2024-08-22 16:35] LABS: BASOPHILS PERCENT AUTO 0.2 % (0.0-1.0); EOSINOPHILS PERCENT AUTO 2.1 % (1.0-3.0); LYMPHOCYTES PERCENT AUTO 9.8 % (20.5-50.1); MONOCYTES PERCENT AUTO 6.9 % (2-8)
[2024-08-22 16:48] LABS: EOSINOPHILS PERCENT MAN 1 % (1-3); LYMPHOCYTES PERCENT MAN 10 % (20-50); MONOCYTES PERCENT MAN 3 % (2-8); SEG NEUTROPHILS PERCENT MAN 86 % (42-75)
[2024-08-22 16:50] LABS: A/G RATIO 0.75; ANION GAP 11.8 mEq/L (7-13); BILIRUBIN TOTAL 0.4 mg/dL (0.2-1.0); BUN/CREATININE RATIO 12.1 (No establ ref range); C-REACTIVE PROTEIN 13.2 ng/dL (<=0.50); CALCIUM 9.3 mg/dL (8.5-10.1); CREATININE 0.99 mg/dL (0.70-1.30); EST CRCL DRUG DOSING (CG) 67.13 mL/min; MAGNESIUM 1.6 mg/dL (1.8-2.4); POTASSIUM,K 3.8 mmol/L (3.5-5.1)
[2024-08-22 16:53] LABS: LACTIC ACID 1.2 mmol/L (0.4-2.0)
[2024-08-22] MEDS: Ondansetron 4 MG/2 ML SDV IVPUSH ONE (17:33)
[2024-08-22] MEDS: Take Home: predniSONE 20 MG, 4 Tab Pack PO ONE (17:33)
[2024-08-22] MEDS: Take Home: Doxycycline 100 MG Cap, 4 Cap Pack PO ONE (17:33)
[2024-08-22] MEDS: Magnesium Oxide 400 MG Tab PO SCH (17:33)
[2024-08-22 17:40] VITALS: BP 120/62; PULSE 102
== END 2024-08-22 17:50 | disposition home or self-care (01) ==
LOC: DL.ED 15:04
DX: J44.9 Chronic obstructive pulmonary disease, unspecified (principal); E78.00 Pure hypercholesterolemia, unspecified; E11.40 Type 2 diabetes mellitus with diabetic neuropathy, unspecified; F17.200 Nicotine dependence, unspecified, uncomplicated; Z79.899 Other long term (current) drug therapy
CPT/HCPCS: 36415; 71045; 80053; 83605; 83735; 85025; 86140; 87428-QW; 96361; 96374; 99284; 99284-25; A9270-GY; J2405; J7030; J7620-GY

== ENCOUNTER 2025-03-16 02:48 | Emergency (ER) | payer MEDICARE, OTHER ==
[2025-03-16] MEDS ORDERED: Sodium Chloride 0.9% 10 ML Syringe FLUSH PRN (02:57)
[2025-03-16] MEDS: Aspirin 81 MG Tab.Chew PO ONE (03:07)
[2025-03-16] MEDS: predniSONE 20 MG Tab PO ONE (03:10)
[2025-03-16] MEDS: Albuterol/Ipratropium 3.0-0.5 MG/3 ML Neb Soln NEB ONE (03:11)
[2025-03-16 03:16] LABS: BASOPHILS PERCENT AUTO 0.6 % (0.0-1.0); EOSINOPHILS PERCENT AUTO 9.7 % (1.0-3.0); HEMATOCRIT 36.3 % (40.0-54.0); HEMOGLOBIN 11.8 g/dL (14.0-18.0); LYMPHOCYTES PERCENT AUTO 23.3 % (20.5-50.1); MEAN CORPUSCULAR HEMOGLOBIN 27.8 pg (27.0-34.0); MEAN CORPUSCULAR HGB CONC 32.5 g/dL (33.0-35.0); MEAN CORPUSCULAR VOLUME 85.4 fL (80-100); MONOCYTES PERCENT AUTO 9.7 % (2-8); NEUTROPHILS PERCENT AUTO 56.7 % (42.2-75.2); PLATELET COUNT,PLT 423 10^3/uL (150-450); RED BLOOD CELL COUNT 4.25 10^6/uL (4.6-6.2); WHITE BLOOD CELL COUNT,WBC 11.7 10^3/uL (5.0-10.0)
[2025-03-16 03:19] VITALS: BP 127/70; PULSE 103
[2025-03-16 03:41] LABS: ALBUMIN 3.1 g/dL (3.4-5.0); ANION GAP 9.6 mEq/L (7-13); BILIRUBIN TOTAL 0.2 mg/dL (0.2-1.0); BUN/CREATININE RATIO 14.7 (No establ ref range); CALCIUM 9.1 mg/dL (8.5-10.1); CREATININE 0.95 mg/dL (0.70-1.30); EST CRCL DRUG DOSING (CG) 69.96 mL/min; MAGNESIUM 1.8 mg/dL (1.8-2.4); POTASSIUM,K 3.6 mmol/L (3.5-5.1); PROTEIN TOTAL,TP 6.8 g/dL (6.4-8.2)
[2025-03-16 03:43] LABS: A/G RATIO 0.84
[2025-03-16 03:45] LABS: INR 0.9 (0.9-1.2); PROTHROMBIN TIME 9.9 SEC (9.0-12.0); PTT,PARTIAL THROMBOPLSTIN TIME 27.5 SEC (22.0-34.0)
== END 2025-03-16 06:00 | disposition home or self-care (01) ==
LOC: DL.ED 02:48
DX: R00.2 Palpitations (principal); J96.11 Chronic respiratory failure with hypoxia; J44.9 Chronic obstructive pulmonary disease, unspecified; M19.90 Unspecified osteoarthritis, unspecified site; E78.00 Pure hypercholesterolemia, unspecified; E11.9 Type 2 diabetes mellitus without complications; F17.200 Nicotine dependence, unspecified, uncomplicated; Z79.84 Long term (current) use of oral hypoglycemic drugs; Z79.82 Long term (current) use of aspirin; Z79.899 Other long term (current) drug therapy
CPT/HCPCS: 36415; 71045; 80053; 83735; 83880; 84484; 85025; 85610; 85730; 93005; 93010; 99284; 99285; A9270; J7512

== ENCOUNTER 2025-05-20 21:07 | Emergency (ER) | payer MEDICARE, OTHER ==
[2025-05-20 23:26] LABS: BASOPHILS PERCENT AUTO 0.4 % (0.0-1.0); EOSINOPHILS PERCENT AUTO 7.1 % (1.0-3.0); LYMPHOCYTES PERCENT AUTO 18.9 % (20.5-50.1); MONOCYTES PERCENT AUTO 8.4 % (2-8); NEUTROPHILS PERCENT AUTO 65.2 % (42.2-75.2); PLATELET COUNT,PLT 400 10^3/uL (150-450); RED BLOOD CELL COUNT 4.40 10^6/uL (4.6-6.2); WHITE BLOOD CELL COUNT,WBC 14.0 10^3/uL (5.0-10.0)
[2025-05-20 23:28] LABS: APPEARANCE,URINE CLEAR (CLEAR); GLUCOSE,URINE 100 (NEGATIVE); OCCULT BLOOD,URINE NEGATIVE (NEGATIVE)
[2025-05-20 23:53] LABS: A/G RATIO 1.2; ALANINE AMINOTRANSFERASE,ALT 19.0 U/L (16-63); ASPARTATE AMNIOTRANSFERASE,AST 15.0 U/L (15-37); BILIRUBIN TOTAL 0.3 mg/dL (0.2-1.0); BLOOD UREA NITROGEN,BUN 14.0 mg/dL (7-18); CARBON DIOXIDE,CO2 32.0 mmol/L (21-32); CHLORIDE,CL 103.0 mmol/L (98-107); CREATININE 0.86 mg/dL (0.70-1.30); EST CRCL DRUG DOSING (CG) 77.28 mL/min; GLUCOSE RANDOM 218.0 mg/dL (70-99); POTASSIUM,K 4.4 mmol/L (3.5-5.1); PROTEIN TOTAL,TP 6.7 g/dL (6.4-8.2); SODIUM,NA 139.0 mmol/L (136-145)
[2025-05-20 23:54] LABS: LACTIC ACID 0.9 mmol/L (0.4-2.0)
[2025-05-20 23:55] LABS: ESTIMATED GFR 96.0 mL/min (>=60)
[2025-05-21 00:54] VITALS: BP 132/67; PULSE 81
== END 2025-05-21 00:35 | disposition home or self-care (01) ==
LOC: DL.ED 21:07
DX: J44.9 Chronic obstructive pulmonary disease, unspecified (principal); R55 Syncope and collapse; E11.9 Type 2 diabetes mellitus without complications; E78.00 Pure hypercholesterolemia, unspecified; Z79.84 Long term (current) use of oral hypoglycemic drugs; Z79.899 Other long term (current) drug therapy; Z79.85 Long-term (current) use of injectable non-insulin antidiabetic drugs; Z79.4 Long term (current) use of insulin
CPT/HCPCS: 36415; 70450; 71045; 80053; 81003; 83605; 83690; 83735; 84484; 85025; 93005; 96360; 99284; J7030

== ENCOUNTER 2025-07-04 18:33 | Emergency (ER) | payer MEDICARE ==
[2025-07-04] MEDS ORDERED: Sodium Chloride 0.9% 10 ML Syringe FLUSH PRN (18:49)
[2025-07-04 18:59] LABS: BASOPHILS PERCENT AUTO 0.4 % (0.0-1.0); EOSINOPHILS PERCENT AUTO 9.4 % (1.0-3.0); LYMPHOCYTES PERCENT AUTO 26.7 % (20.5-50.1); MONOCYTES PERCENT AUTO 10.5 % (2-8); NEUTROPHILS PERCENT AUTO 53.0 % (42.2-75.2); PLATELET COUNT,PLT 455 10^3/uL (150-450); RED BLOOD CELL COUNT 4.68 10^6/uL (4.6-6.2); WHITE BLOOD CELL COUNT,WBC 9.5 10^3/uL (5.0-10.0)
[2025-07-04] MEDS: methylPREDNISolone Sodium Succinate 125 MG/2 ML SDV IVPUSH ONE (19:01)
[2025-07-04 19:14] LABS: INR 0.9 (0.9-1.2); PTT,PARTIAL THROMBOPLSTIN TIME 26.3 SEC (22.0-34.0)
[2025-07-04 19:17] LABS: A/G RATIO 0.9; ALANINE AMINOTRANSFERASE,ALT 20.0 U/L (16-63); ASPARTATE AMNIOTRANSFERASE,AST 15.0 U/L (15-37); BILIRUBIN TOTAL 0.2 mg/dL (0.2-1.0); BLOOD UREA NITROGEN,BUN 12.0 mg/dL (7-18); CARBON DIOXIDE,CO2 31.0 mmol/L (21-32); CHLORIDE,CL 102.0 mmol/L (98-107); CREATININE 0.88 mg/dL (0.70-1.30); EST CRCL DRUG DOSING (CG) 75.52 mL/min; GLUCOSE RANDOM 115.0 mg/dL (70-99); LACTIC ACID 1.4 mmol/L (0.4-2.0); POTASSIUM,K 3.9 mmol/L (3.5-5.1); PROTEIN TOTAL,TP 7.2 g/dL (6.4-8.2); SODIUM,NA 141.0 mmol/L (136-145)
[2025-07-04 19:19] LABS: B-TYPE NATRIURETIC PEPTIDE,BNP 8.0 pg/ml (0-100)
[2025-07-04 19:26] LABS: ESTIMATED GFR 95.0 mL/min (>=60)
[2025-07-04 21:32] VITALS: BP 121/74
[2025-07-04 22:43] VITALS: PULSE 96
== END 2025-07-04 22:23 | disposition home or self-care (01) ==
LOC: DL.ED 18:33
DX: J44.1 Chronic obstructive pulmonary disease with (acute) exacerbation (principal); E11.9 Type 2 diabetes mellitus without complications; E78.00 Pure hypercholesterolemia, unspecified; J45.909 Unspecified asthma, uncomplicated; F17.200 Nicotine dependence, unspecified, uncomplicated; Z79.899 Other long term (current) drug therapy; Z79.82 Long term (current) use of aspirin; Z79.4 Long term (current) use of insulin; Z79.84 Long term (current) use of oral hypoglycemic drugs
CPT/HCPCS: 36415; 71045; 80053; 83605; 83735; 83880; 84484; 85025; 85610; 85730; 86140; 87040; 93005; 93010; 94640; 96365; 96375; 99284; 99285; A9270; J0456; J2919; J7050